=== PATIENT | female | born 1950 | race Caucasian/White ===

== ENCOUNTER → 2018-03-02 08:39 | Outpatient (CLI) | payer MEDICARE, SELFPAY ==
--- NOTE | 2018-03-02 08:46 | CT_ITS ---
CT abdomen pelvis w con CLINICAL INDICATION: Umbilical pain, periumbilical pain and possible hernia ITS.REASON: hernia ORDERING PHYSICIAN: Vel Cooney MD PATIENT AGE: 67 years COMPARISON: None TECHNIQUE: Axial images obtained with sagittal and coronal reformats. All CT scans at the facility use one or more dose reduction, viz: automated exposure control, ma/kV adjustment per patient size (including targeted exams where dose is matched to indication, i.e. head), or iterative reconstruction technique. PROCEDURE: Oral Contrast: Redicat IV Contrast: 75 mL's of Isovue-370. FINDINGS: Lung bases are clear. There are coronary artery calcifications noted. There is a 15 x 8 mm nodular opacity in the medial aspect of the left breast. Nonspecific and mammography with possible ultrasound is suggested for further evaluation. This could be due to asymmetric fibroglandular tissue. The liver, gallbladder, spleen, adrenal glands, and pancreas have an unremarkable appearance. There are bilateral renal cysts measuring up to 2.5 cm lower pole on the left and 7 mm in the mid polar region on the right. No renal or ureteral calculi. No hydronephrosis. Unremarkable appendix. There is extensive diverticulosis of the descending and sigmoid colon. There is minimal blurring of the pericolic fat around the descending colon at the level of the iliac crest suggesting mild low level diverticulitis. No abscess or extra colic gas is evident. Mild mucosal thickening noted at this region as well. No pelvic mass or abnormal fluid collection or focal inflammatory change in the pelvis. No evidence of umbilical hernia or other abdominal wall hernia. No acute bony anomalies. There is some minimal sclerosis of the S1 vertebral body superiorly nonspecific. IMPRESSION: 1. Indeterminate 15 x 8 mm nodular opacity medial aspect of left breast. Mammography and ultrasound may be of further value. The most recent mammogram was 03/06/2015 2. Suspect low level diverticulitis of the descending colon without abscess or perforation 3. No abdominal wall hernia. No umbilical hernia
[2018-03-02 08:57] LABS: Blood Urea Nitrogen 34 mg/dL (7-18); Creatinine,Serum 1.14 mg/dL (0.55-1.02); Estimated Glomerular Filt Rate 48 ml/min (>60); GFR (African American) 58 ML/MIN (>60)
== END ==
PROVIDERS: Family Provider Internal Medicine Adolescent Medicine; PCP Family Medicine; Visit Provider Surgery
DX: K46.9 Unspecified abdominal hernia without obstruction or gangrene (principal)
CPT/HCPCS: 36415; 74177; 82565; 84520; Q9967

== ENCOUNTER → 2018-03-24 09:03 | Outpatient (CLI) | payer MEDICARE, OTHER, SELFPAY ==
--- NOTE | 2018-03-24 09:05 | US_ITS ---
MM Dig mamm BI DX w/CAD, US breast LT complete Ordering Physician: Vel Cooney MD Patient Age: 67 years Female COMPARISON: February 2015 bilateral mammogram INDICATION: . Diagnostic mammogram. Left Breast Density noted on recent CT abdomen study No hormones. No new complaints. Noncontributory family history TECHNIQUE: In addition to routine CC and MLO views of both breasts spot views were performed at the left breast including CC and MLO spot. Also a for 90 degree view left breast as well as nipple profile cc views both breasts performed. DIAGNOSTIC BILATERAL MAMMOGRAM with Spot views... Generalized fatty replacement. New density left breast RIGHT BREAST. Stable appearance no new findings follow up one year on right. LEFT BREAST new nodule/mass at the inferior, medial left breast. Slightly bilobed character. The main round dense focus measures 10 mm posteriorly,... But there is associated tail, with minimal density seen extends anteriorly. Best with this extension the total size of this density spans just over 21 mm AP length,., And including the wispy density also extends for 20 mm height, overall... This New lesion markedly change since 2015 mammogram. Findings highly suspicious for malignancy. Ultrasound was performed as discussed below We have offer the patient ultrasound-guided biopsy later today ====== ULTRASOUND LEFT BREAST including axilla survey Entire breast was surveyed along with the left axilla. Technologist MW There is a hypoechoic solid nodule seen at 9 o'clock position which corresponds with the density seen on mammography. On ultrasound this measures up to 19 mm transverse x 1.4 cm height. Slightly lobulated character with irregular margins anteriorly and medially. highly suspect for carcinoma.. Remainder the left breast unremarkable. Axillary survey performed and reveals only small benign-appearing fatty lymph nodes. No suspicious nodes were encountered. ... IMPRESSION...... 1. LEFT BREAST Mammogram & ultrasound reveal a highly suspicious breast nodule at 9 o'clock position. New mass since since 2014.. Recommend biopsy. Malignancy until proven otherwise . 2. Right breast unremarkable. Annual mammography follow-up right breast recommended BI-RADS Category: 5 Highly Suggestive of Malignancy RECOMMENDED FOLLOW-UP: BIO - BIOPSY RECOMMENDED We have offer the patient ultrasound-guided biopsy later today A letter has been sent to the patient regarding results of the study.)
--- NOTE | 2018-03-24 11:32 | US_ITS ---
, US organ site (breast), left US biopsy guidance HISTORY: New Left breast mass/nodule. On mammogram and ultrasound from earlier today. Nodule 9 o'clock position seen on prior ultrasound and mammogram ========= ULTRASOUND LEFT BREAST Today's ultrasound again demonstrates the nodule at location described in history... (This area measuring up to 1.9 cm in maximum transverse dimension on these images included a small tail x 1.4 cm AP. These images determined the best approach for access to perform aspiration or biopsy of this nodule. Scanning by Dr. Franco & MW. ======== ULTRASND-GUIDED BX LEFT BREAST --( FNA & Dakota-Cut biopsies) Patient given Xanax 1 MG & Lortab 5 by mouth prior to the study for comfort and mild sedation Following sterile preparation as well as local skin, there was deep placement of Xylocaine anesthetic adjacent to the nodule., a small 2-3 mm incision was made in the skin by Dr. Franco. . two FNA needle biopsy was initially performed;... Followed by 3 Dakota-Cut core biopsies: Under ultrasound guidance the the initial FNA biopsy was performed using a 25-gauge needle and subsequent 21-gauge needle.. Two FNA passes performed and tissue submitted for cytology Thereafter 3 true cut core biopsies were performed. Under ultrasound guidance true cut core biopsy needle, was advanced to the nodule and observed passing through the nodule with each of 3 passes.... Initial 16-gauge core biopsy performed; followed by two 14-gauge Dakota-Cut core biopsies. The 3 core biopsies appear to be good quality is were submitted for histology/pathology review. Patient tolerated procedure well. ..............IMPRESSION......... The solid nodule at 9:00 left breast was identified with the initial ultrasound & best approach determine. 2 FNA fine-needle biopsies performed initially Thereafter 3 Dakota-Cut core biopsies performed under ultrasound guidance --- PATHOLOGY REPORTS: ... Initial CYTOPATHOLOGY/ from FNA:.: Positive for Malignancy-ductal carcinoma. ... More complete HISTOLOGY/from core biopsies:. POSITIVE FOR MALIGNANCY. 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 . Estrogen and progesterone receptor positive. . [id number] negative
== END ==
PROVIDERS: Family Provider Internal Medicine Adolescent Medicine; PCP Family Medicine; Visit Provider Surgery
DX: R92.2 Inconclusive mammogram; N64.9 Disorder of breast, unspecified; N63.22 Unspecified lump in the left breast, upper inner quadrant
CPT/HCPCS: 10022; 76641; 76942; 77066; 88173; 88305; 88342; 88360

== ENCOUNTER → 2018-07-05 14:06 | Outpatient (CLI) | payer MEDICARE, OTHER, SELFPAY ==
--- NOTE | 2018-07-05 14:16 | CA_ITS ---
PROCEDURE: 2-D M-mode and color Doppler study INDICATIONS FOR THE TEST: Chest pain COPD Heart Murmur Tobacco Smoking Palpitations Fatigue+ Syncope Edema Hypertension+Diabetes Mellitus+ Rheumatic Fever SOB MURCIA Obesity Hyperlipidemia Family History HD Additional History PRE-CHEMO EF CHECK, BREAST CA PATIENT INFORMATION HEIGHT: 64 WEIGHT:197 GENDER: Female B/P:117/42 2-D/M-MODE INTERPRETATION: 2-D MEASUREMENTS OBSERVED VALUES IN CMS Right Ventricular Dimension (RVDd) 1.4 Interventricular Septum (Thickness)(IVsd) 0.8 Left Ventricular Internal Dimensions(LVIDd) 5.8 Left Ventricular Posterior Wall (Thickness)(LVPWd) 0.9 Aortic Root 2.6 Aortic Cusp Separation 1.9 Left Atrial Dimensions (LAD) 4.3 2D 1. Technically difficult and very poor study, repeat study with definitely contrast is recommended. 2. The left atrium is mildly enlarged, left ventricle is mildly dilated, probably visually estimated ejection fraction 50%, endocardial surfaces are very poorly visualized, a repeat study with definitely contrast is recommended for accurate assessment of wall motion and ejection fraction is recommended. 3. The right atrium and right ventricle are normal size and contractility. 4. The aortic valve is minimally thickened and fibrosed. 5. The mitral and tricuspid valve leaflets are minimally thickened. 6. Pulmonic valve is poorly visualized. 7. Pericardial effusion noted. DOPPLER INTERROGATION: Doppler interrogation of the aortic, mitral and tricuspid valvular presence of mild mitral and tricuspid regurgitation, tricuspid regurgitation jet velocity is inadequate for calculation of the right ventricular systolic pressure, grade 1 diastolic dysfunction seen with tissue Doppler evidence of raised left atrial pressure. CONCLUSION: 1. Technically difficult and very poor study, repeat study with definitely contrast is recommended. 2. Mildly enlarged left atrium, mildly dilated left ventricle, probably visually estimated ejection fraction 50%, a repeat study with Definity contrast is recommended for assessment of the wall motion and for estimation of the ejection fraction. 3. Grade 1 diastolic dysfunction seen with tissue Doppler evidence of raised left atrial pressure. 4. Mild mitral and tricuspid regurgitation 5. No significant pericardial effusion noted.
== END ==
PROVIDERS: PCP Family Medicine; Visit Provider Internal Medicine Medical Oncology
DX: Z01.810 Encounter for preprocedural cardiovascular examination (principal); C50.912 Malignant neoplasm of unspecified site of left female breast; Z45.2 Encounter for adjustment and management of vascular access device
CPT/HCPCS: 93306

== ENCOUNTER 2018-07-14 08:30 | Outpatient (CLI) | payer MEDICARE, OTHER, SELFPAY ==
[2018-07-14 08:31] VITALS: BMI 32.4
[2018-07-14 09:04] LABS: Basophils % 0.6 % (0.1-2.0); Eosinophils # 0.2 K/mm3 (0.0-0.4); Eosinophils % 3.1 % (0.1-12.0); Hematocrit 34.2 % (37.0-47.0); Hemoglobin 10.7 g/dL (12.2-16.2); Lymphocytes # 1.7 K/mm3 (0.7-4.5); Mean Corpuscular HGB Conc 31.2 g/dL (31.8-35.4); Mean Corpuscular Hemoglobin 27.4 pg (27.0-31.2); Mean Corpuscular Volume 87.8 fl (81-99); Mean Platelet Volume 6.9 fl (7.4-10.4); Monocytes # 0.3 K/mm3 (0.1-1.0); Monocytes % 3.6 % (1.7-9.3); Neutrophils # 5.2 K/mm3 (1.8-7.8); Neutrophils % 69.8 % (37.0-80.0); Platelet Count 252 K/mm3 (142-424); Red Cell Distribution Width 14.2 % (11.5-17.5); White Blood Count 7.4 K/mm3 (4.8-10.8)
[2018-07-14 09:24] LABS: Alanine Aminotransferase 35 U/L (12-78); Albumin Level 3.5 gm/dL (3.4-5.0); Albumin/Globulin Ratio 0.9 (1.1-1.8); Alkaline Phosphatase 66 U/L (46-116); Anion Gap 13.7 mEq/L (5-15); Aspartate Amino Transferase 21 U/L (15-37); Bilirubin,Total 0.2 mg/dL (0.2-1.0); Blood Urea Nitrogen 18 mg/dL (7-18); Calcium 9.2 mg/dL (8.5-10.1); Carbon Dioxide 27 mmol/L (21.0-32.0); Chloride 103 mmol/L (98-107); Creatinine Clearance Estimated 74 mL/min (50-200); Creatinine,Serum 0.89 mg/dL (0.55-1.02); Estimated Glomerular Filt Rate 63 ml/min (>60); GFR (African American) 77 ML/MIN (>60); Globulin 3.9 gm/dl (1.3-3.2); Glucose 141 mg/dL (74-106); Potassium 4.7 mmoL/L (3.5-5.1); Sodium 139 mmol/L (136-145); Total Protein,Serum 7.4 gm/dL (6.4-8.2)
[2018-07-14 11:10] VITALS: BP 136/69; PULSE 68; RESP 18; TEMP 36.7
[2018-07-14 11:25] VITALS: BP 122/61; PULSE 60; RESP 18
[2018-07-14 11:40] VITALS: BP 123/61; PULSE 65; RESP 16
[2018-07-14 11:55] VITALS: BP 130/74; PULSE 75; RESP 16
[2018-07-14 12:10] VITALS: BP 131/72; PULSE 72; RESP 16
[2018-07-14 12:15] VITALS: BP 120/63; PULSE 75; RESP 18
--- NOTE | 2018-07-14 17:17 | PC.NURSE ---
1245 - NEULASTA 6MG INSTILLED INTO ONPRO DEVICE AND DEVICE PLACED ON BACK OF RIGHT UPPER ARM. INSTRUCTED PT ON HOW DEVICE WOULD DELIVER NEULASTA AND HOW TO REMOVE FROM ARM AFTER MED DONE INFUSING.
== END 2018-07-14 13:00 | disposition home or self-care (01) ==
LOC: INF 08:35
PROVIDERS: Visit Provider Internal Medicine Medical Oncology
DX: Z51.11 Encounter for antineoplastic chemotherapy (principal); C50.912 Malignant neoplasm of unspecified site of left female breast
CPT/HCPCS: 80053; 85025; 96409; 96413; J2505; J8501; J9000; J9070; Q0166

== ENCOUNTER 2018-08-04 08:00 | Outpatient (CLI) | payer MEDICARE, OTHER, SELFPAY ==
[2018-08-04 08:13] VITALS: BMI 33.3
[2018-08-04 08:33] LABS: Basophils # 0.1 K/mm3 (0-0.2); Basophils % 1.1 % (0.1-2.0); Eosinophils # 0.1 K/mm3 (0.0-0.4); Eosinophils % 0.7 % (0.1-12.0); Hematocrit 31.3 % (37.0-47.0); Hemoglobin 9.9 g/dL (12.2-16.2); Lymphocytes # 1.6 K/mm3 (0.7-4.5); Mean Corpuscular HGB Conc 31.7 g/dL (31.8-35.4); Mean Corpuscular Hemoglobin 27.7 pg (27.0-31.2); Mean Corpuscular Volume 87.2 fl (81-99); Mean Platelet Volume 7.1 fl (7.4-10.4); Monocytes # 0.5 K/mm3 (0.1-1.0); Monocytes % 5.5 % (1.7-9.3); Neutrophils % 73.8 % (37.0-80.0); Platelet Count 330 K/mm3 (142-424); Red Blood Count 3.59 M/mm3 (4.20-5.40); Red Cell Distribution Width 14.8 % (11.5-17.5); White Blood Count 8.2 K/mm3 (4.8-10.8)
[2018-08-04 08:45] LABS: Alanine Aminotransferase 34 U/L (12-78); Albumin Level 3.6 gm/dL (3.4-5.0); Alkaline Phosphatase 67 U/L (46-116); Aspartate Amino Transferase 16 U/L (15-37); Bilirubin,Total 0.2 mg/dL (0.2-1.0); Blood Urea Nitrogen 26 mg/dL (7-18); Calcium 9.2 mg/dL (8.5-10.1); Carbon Dioxide 25 mmol/L (21.0-32.0); Chloride 105 mmol/L (98-107); Creatinine Clearance Estimated 68 mL/min (50-200); Creatinine,Serum 1.08 mg/dL (0.55-1.02); Estimated Glomerular Filt Rate 51 ml/min (>60); GFR (African American) 61 ML/MIN (>60); Globulin 3.5 gm/dl (1.3-3.2); Glucose 194 mg/dL (74-106); Sodium 139 mmol/L (136-145); Total Protein,Serum 7.1 gm/dL (6.4-8.2)
[2018-08-04 10:50] VITALS: BP 106/56; PULSE 62; RESP 18; TEMP 36.1; O2SAT 93
[2018-08-04 11:05] VITALS: BP 118/63; PULSE 61; RESP 18
[2018-08-04 11:20] VITALS: BP 112/62; PULSE 64; RESP 16
[2018-08-04 11:35] VITALS: BP 108/49; PULSE 64; RESP 16
[2018-08-04 11:50] VITALS: BP 107/57; PULSE 67; RESP 16
[2018-08-04 11:55] VITALS: BP 116/54; PULSE 68; RESP 16
--- NOTE | 2018-08-04 17:05 | PC.NURSE ---
1220 - NEULASTA 6MG INSTILLED INTO ONPRO DEVICE. BACK OF RIGHT UPPER ARM CLEANED WITH ALCOHOL PAD AND NEULASTA ONPRO DEVICE PLACED ONTO ARM. INSTRUCTED PT ON HOW DEVICE WORKS AND WHAT TO DO WITH IT ONCE ALL MEDICATION HAS BEEN DISPENSED. UNDERSTANDING VERBALIZED.
== END 2018-08-04 12:25 | disposition home or self-care (01) ==
LOC: INF 08:11
PROVIDERS: Visit Provider Internal Medicine Medical Oncology
DX: Z51.11 Encounter for antineoplastic chemotherapy (principal); C50.912 Malignant neoplasm of unspecified site of left female breast
CPT/HCPCS: 80053; 85025; 96409; 96413; J2505; J8501; J9000; J9070; Q0166

== ENCOUNTER 2018-08-25 09:22 | Outpatient (CLI) | payer MEDICARE, OTHER, SELFPAY ==
[2018-08-25 09:24] VITALS: BMI 33.1
[2018-08-25 09:41] LABS: MANUAL DIFFERENTIAL MANUAL DIFFERENTIAL (MANUAL DIFF)
[2018-08-25 09:46] LABS: Basophils # 0.1 K/mm3 (0-0.2); Basophils % 0.8 % (0.1-2.0); Eosinophils % 0.4 % (0.1-12.0); Hematocrit 28.5 % (37.0-47.0); Hemoglobin 9.2 g/dL (12.2-16.2); Lymphocytes # 1.2 K/mm3 (0.7-4.5); Lymphocytes % 15.7 % (10-50); Mean Corpuscular HGB Conc 32.3 g/dL (31.8-35.4); Mean Corpuscular Hemoglobin 28.8 pg (27.0-31.2); Mean Corpuscular Volume 89.3 fl (81-99); Monocytes # 0.5 K/mm3 (0.1-1.0); Neutrophils # 6.1 K/mm3 (1.8-7.8); Platelet Count 322 K/mm3 (142-424); Red Cell Distribution Width 16.6 % (11.5-17.5); White Blood Count 7.9 K/mm3 (4.8-10.8)
[2018-08-25 09:58] LABS: Alanine Aminotransferase 29 U/L (12-78); Albumin Level 3.6 gm/dL (3.4-5.0); Alkaline Phosphatase 67 U/L (46-116); Anion Gap 17.4 mEq/L (5-15); Aspartate Amino Transferase 17 U/L (15-37); Bilirubin,Total 0.2 mg/dL (0.2-1.0); Blood Urea Nitrogen 24 mg/dL (7-18); Calcium 9.4 mg/dL (8.5-10.1); Carbon Dioxide 23 mmol/L (21.0-32.0); Chloride 104 mmol/L (98-107); Creatinine Clearance Estimated 70 mL/min (50-200); Creatinine,Serum 1.04 mg/dL (0.55-1.02); Estimated Glomerular Filt Rate 53 ml/min (>60); GFR (African American) 64 ML/MIN (>60); Globulin 3.6 gm/dl (1.3-3.2); Glucose 123 mg/dL (74-106); Potassium 5.4 mmoL/L (3.5-5.1); Sodium 139 mmol/L (136-145); Total Protein,Serum 7.2 gm/dL (6.4-8.2)
[2018-08-25 10:28] LABS: Eosinophils % 1 % (0-3); Lymphocytes % 14 % (10-50); Monocytes % 1 % (2-9); Neutrophils % 84 % (42-76); Total Cells Counted 100
[2018-08-25 10:29] LABS: Hypochromasia 1+; Platelet Estimate Normal
[2018-08-25 12:05] VITALS: BP 108/53; PULSE 67; RESP 20; TEMP 36.7; O2SAT 98
[2018-08-25 12:35] VITALS: BP 101/52; PULSE 69; RESP 20; O2SAT 97
[2018-08-25 13:05] VITALS: BP 112/52; PULSE 73; RESP 20; O2SAT 97
[2018-08-25 13:20] VITALS: BP 103/46; PULSE 74; RESP 20; O2SAT 98
== END 2018-08-25 13:40 | disposition home or self-care (01) ==
LOC: INF 09:22
PROVIDERS: Visit Provider Internal Medicine Medical Oncology
DX: C50.812 Malignant neoplasm of overlapping sites of left female breast (principal); Z51.11 Encounter for antineoplastic chemotherapy
CPT/HCPCS: 80053; 85007; 85014; 85018; 85048; 85049; 96372; 96401; 96413; 96417; J1642; J2505; J8501; J9000; J9070; Q0166

== ENCOUNTER 2018-09-15 09:10 | Outpatient (CLI) | payer MEDICARE, OTHER, SELFPAY ==
[2018-09-15 09:20] VITALS: BMI 33.1
[2018-09-15 09:39] LABS: Basophils # 0.1 K/mm3 (0-0.2); Basophils % 0.5 % (0.1-2.0); Eosinophils # 0.1 K/mm3 (0.0-0.4); Eosinophils % 0.6 % (0.1-12.0); Hematocrit 27.5 % (37.0-47.0); Hemoglobin 8.8 g/dL (12.2-16.2); Lymphocytes # 0.9 K/mm3 (0.7-4.5); Lymphocytes % 10.2 % (10-50); Mean Corpuscular Hemoglobin 28.9 pg (27.0-31.2); Mean Corpuscular Volume 90.3 fl (81-99); Mean Platelet Volume 7.7 fl (7.4-10.4); Monocytes # 0.3 K/mm3 (0.1-1.0); Monocytes % 3.3 % (1.7-9.3); Neutrophils # 7.8 K/mm3 (1.8-7.8); Neutrophils % 85.3 % (37.0-80.0); Platelet Count 291 K/mm3 (142-424); Red Blood Count 3.05 M/mm3 (4.20-5.40); Red Cell Distribution Width 17.1 % (11.5-17.5); White Blood Count 9.1 K/mm3 (4.8-10.8)
[2018-09-15 09:42] LABS: MANUAL DIFFERENTIAL MANUAL DIFFERENTIAL (MANUAL DIFF)
[2018-09-15 09:54] LABS: Alanine Aminotransferase 26 U/L (12-78); Albumin Level 3.7 gm/dL (3.4-5.0); Albumin/Globulin Ratio 1.1 (1.1-1.8); Alkaline Phosphatase 61 U/L (46-116); Anion Gap 16.3 mEq/L (5-15); Aspartate Amino Transferase 18 U/L (15-37); Bilirubin,Total 0.3 mg/dL (0.2-1.0); Blood Urea Nitrogen 23 mg/dL (7-18); Calcium 8.9 mg/dL (8.5-10.1); Carbon Dioxide 23 mmol/L (21.0-32.0); Chloride 106 mmol/L (98-107); Creatinine Clearance Estimated 63 mL/min (50-200); Creatinine,Serum 1.19 mg/dL (0.55-1.02); Estimated Glomerular Filt Rate 45 ml/min (>60); GFR (African American) 55 ML/MIN (>60); Globulin 3.5 gm/dl (1.3-3.2); Glucose 102 mg/dL (74-106); Potassium 5.3 mmoL/L (3.5-5.1); Sodium 140 mmol/L (136-145); Total Protein,Serum 7.2 gm/dL (6.4-8.2)
[2018-09-15 10:00] LABS: Lymphocytes % 7 % (10-50); Monocytes % 1 % (2-9); Neutrophils % 91 % (42-76); Platelet Estimate Normal; RBC Morphology Normal; Total Cells Counted 100
[2018-09-15 12:23] VITALS: BP 110/53; PULSE 75; RESP 18; TEMP 36.6
[2018-09-15 12:38] VITALS: BP 106/56; PULSE 78; RESP 18
[2018-09-15 12:53] VITALS: BP 105/56; PULSE 81; RESP 18
[2018-09-15 13:08] VITALS: BP 101/56; PULSE 76; RESP 18
[2018-09-15 13:23] VITALS: BP 99/51; PULSE 75; RESP 18
--- NOTE | 2018-09-15 14:57 | PC.NURSE ---
1330 - NEULASTA 6MG INSTILLED INTO ONPRO DEVICE AND DEVICE PLACED ONTO BACK OF RIGHT UPPER ARM PER PACKAGING INSTUCTIONS. INSTRUCTIONS GIVEN TO PT/SPOUSE ON HOW TO REMOVE DEVICE AND DISPOSE OF AFTER MED DELIVERED. UNDERSTANDING VERBALIZED.
== END 2018-09-15 13:50 | disposition home or self-care (01) ==
LOC: INF 09:18
PROVIDERS: Visit Provider Internal Medicine Medical Oncology
DX: Z51.11 Encounter for antineoplastic chemotherapy (principal); C50.912 Malignant neoplasm of unspecified site of left female breast
CPT/HCPCS: 80053; 85007; 85025; 96372; 96409; 96411; 96413; J2505; J8501; J9000; J9070; Q0166

== ENCOUNTER 2018-09-25 11:36 | Inpatient (IN) ==
--- NOTE | 2018-09-25 11:45 | Emergency Department Note ---
ED Disposition Clinical Impression: Diverticulitis Disposition: Admitted as Observation Condition on Discharge: Good Instructions: DI for Acute Abdomen Referrals: Provider,Referral, [Primary Care Provider] - Time of Disposition: 15:04 - Critical Care Critical Care Time: No Attestation: On , the high probability of a clinically significant, sudden or life threatening deterioration of the following system(s) required my full and direct attention, intervention and personal management. The time I documented below is in addition to time spent performing reported procedures but includes the following listed in this critical care notation. Medical Decision Making - Medical Records Medical records reviewed: Yes: I reviewed the patient's medical records. - Jaiden Inquiry Pt receiving controlled substance: No Jaiden was queried for this patient: No Vital Signs: 09/25/18 11:38 09/25/18 12:02 09/25/18 13:17 Temperature 98.1 F Temperature Source Oral Pulse Rate [Left Radial] 108 H 104 H 82 Respiratory Rate 22 22 18 Blood Pressure [Right Arm] 150/89 H 130/88 115/60 Blood Pressure Mean [Right Arm] 109 102 78 Blood Pressure Source [Right Arm] Automatic Cuff Automatic Cuff Automatic Cuff Blood Pressure Position [Right Arm] Sitting Sitting Sitting 02 Sat by Pulse Oximetry 98 100 97 Oxygen Delivery Method Room Air Room Air Room Air Oxygen Flow Rate (LPM) 09/25/18 13:30 09/25/18 13:42 09/25/18 13:53 Temperature Temperature Source Pulse Rate [Left Radial] 86 Respiratory Rate Blood Pressure [Right Arm] 105/57 L Blood Pressure Mean [Right Arm] 73 Blood Pressure Source [Right Arm] Automatic Cuff Blood Pressure Position [Right Arm] Sitting 02 Sat by Pulse Oximetry 96 85 L 97 Oxygen Delivery Method Room Air Room Air Nasal Cannula Oxygen Flow Rate (LPM) 9 - Lab Data Lab results reviewed: Yes: I reviewed the patient's lab results. Lab Results 09/25/18 11:50: WBC 4.5 L, RBC 3.13 L, Hgb 9.2 L, Hct 28.0 L, MCV 89.6, MCH 29.2, MCHC 32.7, RDW 17.2, Plt Count 206, MPV 7.9, Neut % (Auto) 73.6, Lymph % (Auto) 17.9, Cameron % (Auto) 5.5, Eos % (Auto) 1.7, Baso % (Auto) 1.3, Neut # (Auto) 3.3, Lymph # (Auto) 0.8, Cameron # (Auto) 0.3, Eos # (Auto) 0.1, Baso # (Auto) 0.1 09/25/18 11:50: Sodium 142, Potassium 4.2, Chloride 105, Carbon Dioxide 22, Anion Gap 19.2 H, BUN 19 H, Creatinine 0.98, Estimated Creat Clear 72, Estimated GFR 57 L, Est GFR ( Amer) 68, Glucose 140 H, Calcium 9.7 09/25/18 14:30: Urine Color Yellow, Urine Appearance Clear, Urine pH 5.5, Ur Specific [place] 1.015, Urine Protein Negative, Urine Glucose (UA) Negative, Urine Ketones Trace, Urine Blood Trace-i, Urine Nitrate Negative, Urine Bilirubin Negative, Urine Urobilinogen 0.2, Ur Leukocyte Esterase Negative, Urine RBC Occasional, Urine WBC 10-20, Ur Squamous Epith Cells 3-5, Urine Bacteria 1+ Result diagrams: 09/25/18 11:50 09/25/18 11:50 Orders (Tests/Meds): ED MEDICATIONS Generic Name Dose Route Start Last Admin Trade Name Freq PRN Reason Stop Dose Admin Levofloxacin/Dextrose 750 mg in 150 mls @ 100 mls/hr 09/25/18 14:30 Levofloxacin 750mg/150ml Premix IV 10/09/18 14:29 Q24H RORO Protocol Metronidazole 500 mg in 100 mls @ 100 mls/hr 09/25/18 14:18 09/25/18 14:32 Flagyl 500mg/100ml Ivpb IV 09/25/18 15:17 100 mls/hr ONCE ONE Administration Protocol Discontinued Medications Generic Name Dose Route Start Last Admin Trade Name Freq PRN Reason Stop Dose Admin Hydromorphone HCl 0.5 mg 09/25/18 11:58 09/25/18 12:01 Dilaudid 2mg/Ml Syringe IV 09/25/18 11:59 0.5 mg ONCE ONE Administration Hydromorphone HCl 0.5 mg 09/25/18 12:12 09/25/18 12:13 Dilaudid 2mg/Ml Syringe IV 09/25/18 12:13 0.5 mg ONCE ONE Administration Hydromorphone HCl 0.5 mg 09/25/18 13:30 09/25/18 13:35 Dilaudid 2mg/Ml Syringe IV 09/25/18 13:31 0.5 mg ONCE ONE Administration Ioversol 75 ml 09/25/18 13:06 09/25/18 13:07 Rad-Optiray 350 100ml Vial IV 09/25/18 13:07 75 ml ONCE ONE Administration Protocol Ketorolac Tromethamine 30 mg 09/25/18 11:57 09/25/18 11:59 Toradol 30mg/Ml Vial IV 09/25/18 11:58 30 mg ONCE ONE Administration Lorazepam 1 mg 09/25/18 11:44 09/25/18 11:59 Ativan 1mg Tablet PO 09/25/18 11:45 1 mg ONCE ONE Administration Ondansetron HCl 4 mg 09/25/18 11:41 09/25/18 11:59 Zofran 4mg/2ml Vial IV 09/25/18 11:42 4 mg ONCE ONE Administration Sodium Chloride 10 ml 09/25/18 13:06 09/25/18 13:07 Rad-Saline Flush 10ml Syringe IV 09/25/18 13:07 10 ml ONCE ONE Administration ORDERS Category Date Time Status Urine Culture Stat Micro 09/25/18 14:30 Received General Adult HPI - General Chief complaint: Abdominal Pain Stated complaint: abd pain Time Seen by Provider: 09/25/18 11:42 Mode of Arrival: Ambulatory Source of Information: Patient Limitations: No Limitations - History of Present Illness HPI narrative: cancer patient, breast, last chemo was september 15 presenting with severe suprapubic pain, doubles her over - Related Data Home Medications Medication Instructions Recorded Confirmed allopurinol 100 mg tablet 100 mg PO DAILY 02/16/18 09/25/18 ascorbic acid (vitamin C) 1,000 mg 1 g PO DAILY 02/16/18 09/25/18 tablet citalopram 40 mg tablet 20 mg PO DAILY 02/16/18 09/25/18 cyanocobalamin (vit B-12) 1,000 1,000 mcg PO DAILY 02/16/18 09/25/18 mcg tablet diclofenac sodium 75 mg 75 mg PO BID 02/16/18 09/25/18 tablet,delayed release levothyroxine 150 mcg capsule 150 mcg PO DAILY 02/16/18 09/25/18 lisinopril 20 mg tablet 20 mg PO DAILY 02/16/18 09/25/18 metformin 1,000 mg tablet 1,000 mg PO BID 02/16/18 09/25/[address] 40 mg granules 40 mg PO DAILY 02/16/18 09/25/18 delayed-release for susp in packet pravastatin 10 mg tablet 10 mg PO DAILY 02/16/18 09/25/18 pregabalin 150 mg capsule 150 mg PO BID 02/16/18 09/25/18 trazodone 150 mg tablet 150 mg PO HS 02/16/18 09/25/18 zolpidem 10 mg tablet 10 mg PO HS tab 02/16/18 09/25/18 Allergies Allergy/AdvReac Type Severity Reaction Status Date / Time Penicillins Allergy Hives Verified 09/15/18 10:16 [facility] History - Hepatitis A Screen Attestation statement:: This patient has been screened for Hepatitis A risk factors. I have reviewed the patient's past medical history: Yes Medical History: Reports:: Cancer, Diabetes Mellitus Type 2, Gastroesophageal Reflux Disease(GERD), Hyperlipidemia, Hypertension Denies:: Diabetes Mellitus Type 1, Internal Pacemaker, Lung Disease, MRSA, Seizures Other Medical History: Reports: Hypothyroidism, Other. Denies: Blood Transfusion Reaction Comment: Hep A vaccine Laterality Cases: Left: Breast Biopsy, Mastectomy Other Surgeries: Yes: Colonoscopy, , Other. No: Pacemaker Amputation: No Fractures: No - Social History Smoking Status: Never smoker Alcohol Intake: never Substance Use Type: denies use Occupational Status: employed Housing: house Household Members: spouse Family Hx:: Cancer, Coronary Artery Disease, Diabetes, Heart Attack ROS Obtained: Yes All systems reviewed & no additional complaints - Constitutional Constitutional: Denies chills, Denies fever(s) - Eyes Eyes: Denies blurry vision - ENT Ears, Nose, Mouth, and Throat: Denies sore throat, Denies throat swelling - Cardiovascular Cardiovascular: Denies chest pain at rest, Denies rapid heart rate, Denies slow heart rate - Respiratory Respiratory: No chest congestion, No cough, No dyspnea - Gastrointestinal Gastrointestingal: Reports: system reviewed and no additional complaints, except as docu, abdominal pain. Denies: diarrhea, nausea, vomiting - Genitourinary Female Genitourinary: Denies dysuria, Denies flank pain, Reports pelvic pain - Integumentary/Breasts Skin/Breast: Denies rash - Neurologic Neurologic: Denies syncope, Denies vertigo, Denies weakness - Hematologic/Lymphatic Henatologic/Lymphatic: Denies easy bleeding, Denies easy bruising Physical Exam - General General appearance: alert, anxious, in distress - Head Head exam: atraumatic, normocephalic, normal inspection - Eye Eye exam: Present: normal appearance, PERRL, EOMI - ENT ENT exam: Present: normal exam, normal oropharynx, mucous membranes moist, TM's normal bilaterally, normal external ear exam - Neck Neck exam: Present: normal inspection, full ROM, trachea midline. Absent: meningismus, lymphadenopathy - Chest Chest inspection: Present: normal inspection, symmetric chest wall rise. Absent: tenderness - Respiratory Respiratory exam: Present: normal lung sounds bilaterally. Absent: respiratory distress - Cardiovascular Cardiovascular exam: Present: regular rate, normal rhythm. Absent: JVD - Abdominal Exam Abdominal exam: Present: soft, tenderness, normal bowel sounds. Absent: distention, guarding Abdominal tenderness: Present: suprapubic - Extremities Exam Extremities exam: Present: normal inspection, full ROM, normal capillary refill. Absent: calf tenderness - Back Exam Back exam: Present: normal inspection. Absent: tenderness - Neurological Exam Neurological exam: Present: alert, oriented X3 - Psychiatric Psychiatric exam: Present: normal affect, normal mood - Skin Skin exam: Present: warm, dry, intact, normal color - Lymphatic Lymphatic Findings: no adenopathy
[2018-09-25 11:58] LABS: Basophils # 0.1 K/mm3 (0-0.2); Basophils % 1.3 % (0.1-2.0); Eosinophils # 0.1 K/mm3 (0.0-0.4); Eosinophils % 1.7 % (0.1-12.0); Hemoglobin 9.2 g/dL (12.2-16.2); Lymphocytes # 0.8 K/mm3 (0.7-4.5); Lymphocytes % 17.9 % (10-50); Mean Corpuscular HGB Conc 32.7 g/dL (31.8-35.4); Mean Corpuscular Hemoglobin 29.2 pg (27.0-31.2); Mean Corpuscular Volume 89.6 fl (81-99); Mean Platelet Volume 7.9 fl (7.4-10.4); Monocytes # 0.3 K/mm3 (0.1-1.0); Monocytes % 5.5 % (1.7-9.3); Neutrophils # 3.3 K/mm3 (1.8-7.8); Neutrophils % 73.6 % (37.0-80.0); Platelet Count 206 K/mm3 (142-424); Red Blood Count 3.13 M/mm3 (4.20-5.40); Red Cell Distribution Width 17.2 % (11.5-17.5); White Blood Count 4.5 K/mm3 (4.8-10.8)
[2018-09-25 12:04] LABS: Anion Gap 19.2 mEq/L (5-15); Calcium 9.7 mg/dL (8.5-10.1); Potassium 4.2 mmoL/L (3.5-5.1)
[2018-09-25 14:35] LABS: Microscopic, Urine URINE MICROSCOPIC (MICROSCOPIC)
[2018-09-25 14:36] LABS: Appearance,Urine CLEAR (Clear); Bilirubin,Urine Negative (Negative); Blood, Urine TRACE-I (Negative); Color,Urine YELLOW (Yellow); Glucose,Urine (UA) Negative (Negative); Ketones,Urine TRACE (Negative); Leukocyte Esterase,Urine Negative (Negative); PH,Urine 5.5 (5.0-8.5); Protein,Urine Negative (Negative); Specific Gravity, Urine 1.015 (1.005-1.030); Urobilinogen,Urine 0.2 EU/dl (0.2)
[2018-09-25 14:46] LABS: Bacteria,Urine 1+ /lpf; RBC,Urine Occasional #/hpf (0-3)
[2018-09-26 06:54] LABS: Basophils % 0.2 % (0.1-2.0); Hematocrit 24.4 % (37.0-47.0); Lymphocytes # 0.4 K/mm3 (0.7-4.5); Lymphocytes % 6.8 % (10-50); Mean Corpuscular HGB Conc 32.4 g/dL (31.8-35.4); Mean Corpuscular Hemoglobin 29.4 pg (27.0-31.2); Mean Corpuscular Volume 90.6 fl (81-99); Mean Platelet Volume 7.4 fl (7.4-10.4); Monocytes # 0.1 K/mm3 (0.1-1.0); Monocytes % 2.4 % (1.7-9.3); Neutrophils # 5.6 K/mm3 (1.8-7.8); Neutrophils % 90.6 % (37.0-80.0); Platelet Count 173 K/mm3 (142-424); Red Blood Count 2.69 M/mm3 (4.20-5.40); Red Cell Distribution Width 17.1 % (11.5-17.5); White Blood Count 6.1 K/mm3 (4.8-10.8)
[2018-09-26 07:07] LABS: Anion Gap 12.3 mEq/L (5-15); Hemoglobin 7.9 g/dL (12.2-16.2); Potassium 4.3 mmoL/L (3.5-5.1)
--- NOTE | 2018-09-26 07:33 | Pharmacy Consult Notes ---
[facility] VTE Monitoring - Patient Demographics Admission date: 09/25/18 Report Date: 09/26/18 Time: 07:33 Allergies/Adverse Reactions: Patient Allergies Penicillins Allergy (Verified 09/15/18 10:16) Hives Height: 1.8 m Weight: 84.368 kg Patient Problems: Current Active Problems Diverticulitis (Acute) - VTE Risk Labs: VTE Related Lab Results Hgb 7.9 g/dL (12.2-16.2) L* 09/26/18 06:17 Hct 24.4 % (37.0-47.0) L 09/26/18 06:17 Plt Count 173 K/mm3 (142-424) 09/26/18 06:17 BUN 11 mg/dL (7-18) D 09/26/18 06:17 Creatinine 0.72 mg/dL (0.55-1.02) D 09/26/18 06:17 Estimated Creat Clear 73 mL/min (50-200) 09/26/18 06:17 Was VTE Risk Assessment Performed: Yes VTE Score: 4 VTE Risk Level: Low Risk - Prophylaxis VTE Prophylaxis Ordered?: Yes Types of VTE Prophylaxis: TEDS Knee High Location of Applied Device: Bilateral Lower Extremeties - VTE Diagnosis Confirmed Treatment or plan recommended: Continue Current Treatment
[2018-09-26 08:33] LABS: Lymphocytes % 5 % (10-50); Monocytes % 2 % (2-9); Neutrophils % 93 % (42-76); RBC Morphology Normal; Total Cells Counted 100
--- NOTE | 2018-09-26 08:57 | History & Physical Report ---
*Admission Date: 09/25/18 *Chief complaint: Left lower quadrant pain *History of present illness: 68-year-old white female with history of breast cancer, currently on active chemotherapy, last cycle first week of September, and overall doing well, until yesterday when she began to have significant suprapubic/left lower quadrant pain that was sharp, unremitting and very intense. Came to emergency department where workup showed negative urinalysis, but CT of abdomen and pelvis showed evidence of sigmoid colitis/mild diverticulitis. Admitted for pain control and IV antibiotics. [facility] History I have reviewed the patient's past medical history: Yes Medical History: Reports:: Cancer, Diabetes Mellitus Type 2, Gastroesophageal Reflux Disease(GERD), Hyperlipidemia, Hypertension Denies:: Diabetes Mellitus Type 1, Internal Pacemaker, Lung Disease, MRSA, Seizures *Have you ever received a pneumonia vaccine?: Yes *Have you received a flu vaccine this season?: Yes Other Medical History: Reports: Hypothyroidism, Other. Denies: Blood Transfusion Reaction Laterality Cases: Left: Breast Biopsy, Mastectomy Other Surgeries: Yes: Colonoscopy, , Other. No: Pacemaker Amputation: No Fractures: No - *Social History Smoking Status: Never smoker Alcohol Intake: never Substance Use Type: denies use *Occupational Status:: employed Housing: house Household Members: spouse *Travel in the last 8 weeks: None - Psychiatric History Expresses thoughts of harming self/others: None Suicide Plan Description: No Plan Family Hx:: Cancer, Coronary Artery Disease, Diabetes, Heart Attack Review of Systems - Review of Systems Review of systems:: pertinent systems reviewed and negative unless documented below - Constitutional Reports anorexia, Reports body ache(s), Denies chills - Eyes Denies blind spots, Denies blurry vision - ENT Denies abnormal hearing, Denies bleeding gums - *Cardiovascular Denies chest pain, Denies chest pain at rest, Denies excessive sweating, Denies shortness of breath, Denies irregular heart rhythm - *Respiratory Denies change in phlegm color, Denies chest congestion, Denies cough, Denies shortness of breath - *Gastrointestinal Reports abdominal pain, Denies belching - *Genitourinary Denies painful urination - *Musculoskeletal Denies abnormal walking, Denies joint pain - *Neurologic Denies fainting, Denies dizziness, Denies weakness - Endocrine Denies cold intolerance, Denies excessive sweating Meds Home Medications Medication Instructions Recorded Confirmed Type allopurinol 100 mg tablet 100 mg PO DAILY 02/16/18 09/25/18 History ascorbic acid (vitamin C) 1,000 mg 1 g PO DAILY 02/16/18 09/25/18 History tablet citalopram 40 mg tablet 40 mg PO DAILY 02/16/18 09/26/18 History cyanocobalamin (vit B-12) 1,000 1,000 mcg PO DAILY 02/16/18 09/25/18 History mcg tablet diclofenac sodium 75 mg 75 mg PO BID 02/16/18 09/25/18 History tablet,delayed release lisinopril 20 mg tablet 20 mg PO DAILY 02/16/18 09/25/18 History metformin 1,000 mg tablet 1,000 mg PO BID 02/16/18 09/25/18 History pravastatin 10 mg tablet 10 mg PO DAILY 02/16/18 09/25/18 History trazodone 150 mg tablet 150 mg PO HS 02/16/18 09/25/18 History zolpidem 10 mg tablet 10 mg PO HS tab 02/16/18 09/25/18 History Gabapentin 1,600 mg PO BID 09/25/18 09/26/18 History Ondansetron HCl [Ondansetron 8mg 8 mg PO Q8HP PRN 09/25/18 09/26/18 History Tablet] Triamterene/Hydrochlorothiazid 1 each PO DAILY 09/25/18 09/25/18 History [Maxzide 37.5 mg-25 mg Tablet] Levothyroxine Sodium 50 mcg PO DAILY 09/26/18 09/26/18 History [Levothyroxine 50mcg (0.05mg) Tab] Pantoprazole Sodium [Protonix 40mg 40 mg PO DAILY 09/26/18 09/26/18 History tablet] Allergies Allergy/AdvReac Type Severity Reaction Status Date / Time Penicillins Allergy Hives Verified 09/15/18 10:16 Exam Vital signs and Labs for Last 24 Hours: Temp Pulse Resp BP Pulse Ox 97.6 F 78 18 101/58 L 92 L 09/26/18 07:52 09/26/18 07:52 09/26/18 07:52 09/26/18 07:52 09/26/18 07:52 Laboratory Results - last 24 hr 09/25/18 11:50: WBC 4.5 L, RBC 3.13 L, Hgb 9.2 L, Hct 28.0 L, MCV 89.6, MCH 29.2, MCHC 32.7, RDW 17.2, Plt Count 206, MPV 7.9, Neut % (Auto) 73.6, Lymph % (Auto) 17.9, [place] % (Auto) 5.5, Eos % (Auto) 1.7, Baso % (Auto) 1.3, Neut # (Auto) 3.3, Lymph # (Auto) 0.8, [place] # (Auto) 0.3, Eos # (Auto) 0.1, Baso # (Auto) 0.1 09/25/18 11:50: Sodium 142, Potassium 4.2, Chloride 105, Carbon Dioxide 22, Anion Gap 19.2 H, BUN 19 H, Creatinine 0.98, Estimated Creat Clear 72, Estimated GFR 57 L, Est GFR ( Amer) 68, Glucose 140 H, Calcium 9.7 09/25/18 14:30: Urine Color Yellow, Urine Appearance Clear, Urine pH 5.5, Ur Specific [place] 1.015, Urine Protein Negative, Urine Glucose (UA) Negative, Urine Ketones Trace, Urine Blood Trace-i, Urine Nitrate Negative, Urine Bilirubin Negative, Urine Urobilinogen 0.2, Ur Leukocyte Esterase Negative, Urine RBC Occasional, Urine WBC 10-20, Ur Squamous Epith Cells 3-5, Urine Bacteria 1+ 09/26/18 06:17: WBC 6.1 D, RBC 2.69 L, Hgb 7.9 L*, Hct 24.4 L, MCV 90.6, MCH 29.4, MCHC 32.4, RDW 17.1, Plt Count 173, MPV 7.4, Neut % (Auto) 90.6 H, Lymph % (Auto) 6.8 L, [place] % (Auto) 2.4, Eos % (Auto) 0.0 L, Baso % (Auto) 0.2, Neut # (Auto) 5.6, Lymph # (Auto) 0.4 L, [place] # (Auto) 0.1, Eos # (Auto) 0.0, Baso # (Auto) 0.0, Total Counted 100, Neutrophils % (Manual) 93 H, Lymphocytes % (Manual) 5 L, Monocytes % (Manual) 2, Platelet Estimate Normal, RBC Morphology Normal 09/26/18 06:17: Sodium 140, Potassium 4.3, Chloride 107, Carbon Dioxide 25, Anion Gap 12.3, BUN 11 D, Creatinine 0.72 D, Estimated Creat Clear 73, Estimated GFR 81, Est GFR ( Amer) 98 D, Glucose 152 H 09/26/18 06:18: POC Glucose 155 H I & O for Last 24 hours: Intake & Output 09/23/18 09/24/18 09/25/18 09/26/18 11:59 11:59 11:59 11:59 Intake Total 2183 / 2183 Output Total 100 / 100 Balance 2082 / 2082 Weight 184 lb 186 lb Narrative: Patient is pleasant, talkative, alert. Oriented x3. Chemo-related alopecia noted. Anterior lung mckeon are clear, heart rate regular. Abdomen is soft, very minimal left lower quadrant tenderness but apparently improved over admission. No extremity clubbing or cyanosis, no skin rash. Assessment and Plan (1) Colitis Current visit: Yes Status: Acute Category: Medical Code(s): K52.9 - Noninfective gastroenteritis and colitis, unspecified CT scan reviewed, patient has responded antibiotics, cautiously advance diet. (2) Anemia Current visit: Yes Status: Chronic Qualifiers: Anemia type: other cause Category: Medical Code(s): D64.9 - Anemia, unspecified Secondary to chemotherapy. At baseline. Follow closely. 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
[2018-09-26 09:24] LABS: Calcium 8.3 mg/dL (8.5-10.1)
--- NOTE | 2018-09-26 17:58 | Discharge Summary ---
General - General Admission date:: 09/25/18 Discharge date: 09/26/18 HPI HPI: 68-year-old white female with history of breast cancer, currently on active chemotherapy, last cycle first week of September, and overall doing well, until yesterday when she began to have significant suprapubic/left lower quadrant pain that was sharp, unremitting and very intense. Came to emergency department where workup showed negative urinalysis, but CT of abdomen and pelvis showed evidence of sigmoid colitis/mild diverticulitis. Admitted for pain control and IV antibiotics. Hospital Course Hospital Course: Patient was admitted to hospital. Placed on IV antibiotics and steroids, and did well overnight, rehydrated successfully and her pain improved nicely. Through the day today she was started on low-fat/low residue diet and did well. Tonight she had improved, wished to be discharged home. We will discharge her home on Flagyl, prednisone as noted below. I have asked her to discuss with her oncologist the possibility of chemotherapy-induced colitis. Objective Vital signs: Temp Pulse Resp BP Pulse Ox 98.5 F 74 18 107/55 L 96 09/26/18 15:48 09/26/18 15:48 09/26/18 15:48 09/26/18 15:48 09/26/18 15:48 Narrative: Soft abdomen, minimally tender. Much improved over admission exam, lungs are clear, heart rate regular. No edema noted. Heart rate regular. Neurologic exam intact. Results Labs on day of discharge: Labs from last 24 hours 09/26/18 09/26/18 09/26/18 06:18 06:17 06:17 WBC 6.1 D RBC 2.69 L Hgb 7.9 L* Hct 24.4 L MCV 90.6 MCH 29.4 MCHC 32.4 RDW 17.1 Plt Count 173 MPV 7.4 Neut % (Auto) 90.6 H Lymph % (Auto) 6.8 L [place] % (Auto) 2.4 Eos % (Auto) 0.0 L Baso % (Auto) 0.2 Neut # (Auto) 5.6 Lymph # (Auto) 0.4 L [place] # (Auto) 0.1 Eos # (Auto) 0.0 Baso # (Auto) 0.0 Total Counted 100 Neutrophils % (Manual) 93 H Lymphocytes % (Manual) 5 L Monocytes % (Manual) 2 Platelet Estimate Normal RBC Morphology Normal Sodium 140 Potassium 4.3 Chloride 107 Carbon Dioxide 25 Anion Gap 12.3 BUN 11 D Creatinine 0.72 D Estimated Creat Clear 73 Estimated GFR 81 Est GFR ( Amer) 98 D Glucose 152 H POC Glucose 155 H Calcium 8.3 L D Preliminary micro results at discharge 09/25/18 14:30 Urine Culture - Preliminary Urine,Clean Catch NO GROWTH AFTER 24 HOURS DS: Diagnosis - Discharge Diagnosis (1) Colitis Status: Acute (2) Anemia Status: Chronic (3) Insulin-requiring or dependent type II diabetes mellitus Status: Chronic Discharge Plan - Patient Discharge Instructions ACTIVITY: Continue current activity DIET: continue same diet Patient Instructions: DI for Diverticulitis, DI for Abdominal Pain-Adult - Follow up Plan Disposition: Home, Self-Custodial Medications: Home Medications Medication Instructions Recorded Confirmed Type allopurinol 100 mg tablet 100 mg PO DAILY 02/16/18 09/25/18 History ascorbic acid (vitamin C) 1,000 mg 1 g PO DAILY 02/16/18 09/25/18 History tablet citalopram 40 mg tablet 40 mg PO DAILY 02/16/18 09/26/18 History cyanocobalamin (vit B-12) 1,000 1,000 mcg PO DAILY 02/16/18 09/25/18 History mcg tablet diclofenac sodium 75 mg 75 mg PO BID 02/16/18 09/25/18 History tablet,delayed release lisinopril 20 mg tablet 20 mg PO DAILY 02/16/18 09/25/18 History metformin 1,000 mg tablet 1,000 mg PO BID 02/16/18 09/25/18 History pravastatin 10 mg tablet 10 mg PO DAILY 02/16/18 09/25/18 History trazodone 150 mg tablet 150 mg PO HS 02/16/18 09/25/18 History zolpidem 10 mg tablet 10 mg PO HS tab 02/16/18 09/25/18 History Gabapentin 1,600 mg PO BID 09/25/18 09/26/18 History Ondansetron HCl [Ondansetron 8mg 8 mg PO Q8HP PRN 09/25/18 09/26/18 History Tablet] Triamterene/Hydrochlorothiazid 1 each PO DAILY 09/25/18 09/25/18 History [Maxzide 37.5 mg-25 mg Tablet] Levothyroxine Sodium 50 mcg PO DAILY 09/26/18 09/26/18 History [Levothyroxine 50mcg (0.05mg) Tab] Pantoprazole Sodium [Protonix 40mg 40 mg PO DAILY 09/26/18 09/26/18 History tablet] metroNIDAZOLE [Flagyl 250mg 250 mg PO TID #21 tab 09/26/18 Rx Tablet] predniSONE [Prednisone 20mg 20 mg PO DAILY 7 Days #7 tab 09/26/18 Rx Tab] Prescriptions/Medication Reconciliation: New metroNIDAZOLE [Flagyl 250mg Tablet] 250 mg PO TID #21 tab predniSONE [Prednisone 20mg Tab] 20 mg PO DAILY 7 Days #7 tab Continue lisinopril 20 mg tablet 20 mg PO DAILY zolpidem 10 mg tablet 10 mg PO HS tab metformin 1,000 mg tablet 1,000 mg PO BID pravastatin 10 mg tablet 10 mg PO DAILY trazodone 150 mg tablet 150 mg PO HS diclofenac sodium 75 mg tablet,delayed release 75 mg PO BID allopurinol 100 mg tablet 100 mg PO DAILY cyanocobalamin (vit B-12) 1,000 mcg tablet 1,000 mcg PO DAILY ascorbic acid (vitamin C) 1,000 mg tablet 1 g PO DAILY citalopram 40 mg tablet 40 mg PO DAILY Ondansetron HCl [Ondansetron 8mg Tablet] 8 mg PO Q8HP PRN PRN Reason: Nausea Gabapentin 1,600 mg PO BID Pantoprazole Sodium [Protonix 40mg tablet] 40 mg PO DAILY Triamterene/Hydrochlorothiazid [Maxzide 37.5 mg-25 mg Tablet] 1 each PO DAILY Levothyroxine Sodium [Levothyroxine 50mcg (0.05mg) Tab] 50 mcg PO DAILY
== END 2018-09-26 18:45 | disposition home or self-care (01) | DRG 392 ==
LOC: ER 11:36 → 2ND 15:47
PROVIDERS: ADMIT Internal Medicine Adolescent Medicine; ATTEND Internal Medicine Adolescent Medicine
CPT/HCPCS: 36415; 74177; 80048; 81001; 82962; 85007; 85025; 87086; 96365; 96366; 96375; 96376; 99285; J1956; J2405; Q9967

== ENCOUNTER 2018-09-29 09:00 | Outpatient (RCR) | payer MEDICARE, OTHER, SELFPAY ==
--- NOTE | 2018-09-12 09:43 | [facility].PTOPWND ---
Rehab Outpt Wound Evaluation Rehab OP Wound Evaluation Start: 09/12/18 09:33 Freq: Status: Active Protocol: Document 09/12/18 09:33 GEORGE (Rec: 09/12/18 09:43 PHORNE [id number]) Electronically Signed By Scooby Reese, PT 09/12/18 09:33 Subjective/History History History Pt is a 68 yowf who presents ~ 5 mos S/P left mastectomy woth 6 axillary lymph nodes removed and now with edema and discomfort. She reports having her 4th, and last, chemo treatment this week. She also c/o pain around the left breast itself, especially with taking a shower. SHe reports numbness and tingling around the left breast and axillary region. She has expected post-op weakness and loss of ROM throughout the left shld. She has hx of HTN and DM-II with neuropathy. Subjective Subjective Currently no c/o pain, at worst pain is 7/10 in the left breast. She presents with AROM of left Shld flex= 0-160, ABD= 0-150. MMT left shld Flex, ABD, ER all 4/5 within available ROM. Lymphedema Eval Classification of Lymphedema Secondary Lymphedema Yes Post-Surgical Lymphedema Yes Stage of Lymphedema Lymphedema stages Stage 0 (subjective c/o heaviness and aching) Skin Changes Dry Skin Yes Other Changes Yes Pain Scale Pain Scale (0-10) 7 Radiation Therapy Has received radiation therapy no Chemo Therapy Has received chemo therapy yes Affected Extremities Areas Affected by Lymphedema/Edema Left Upper Extremity Abdomen Left Breast Left Axilla Sub Axiallary Region Manual Lymphatic Drainage Treatment Area MLD Treatment Area Left Upper Extremity Abdomen Left Breast Left Axilla Sub Axiallary Region Wound Problems/Impairments Impairments Problems/Impairmments Palpation Tenderness Impaired Range of Motion Impaired Strength
== END 2018-09-29 09:05 | disposition home or self-care (01) ==
LOC: PT 09:00
PROVIDERS: Visit Provider Internal Medicine Medical Oncology
DX: I89.0 Lymphedema, not elsewhere classified (principal)
CPT/HCPCS: 97010; 97110; 97140; 97163

== ENCOUNTER 2018-10-10 08:37 | Outpatient (CLI) | payer MEDICARE, OTHER, SELFPAY ==
[2018-10-10 08:37] VITALS: BMI 33.7
[2018-10-10 09:03] LABS: Basophils # 0.1 K/mm3 (0-0.2); Basophils % 0.7 % (0.1-2.0); Eosinophils # 0.1 K/mm3 (0.0-0.4); Eosinophils % 1.1 % (0.1-12.0); Hematocrit 29.2 % (37.0-47.0); Hemoglobin 9.3 g/dL (12.2-16.2); Lymphocytes % 15.7 % (10-50); Mean Corpuscular HGB Conc 31.8 g/dL (31.8-35.4); Mean Corpuscular Hemoglobin 29.8 pg (27.0-31.2); Mean Corpuscular Volume 93.9 fl (81-99); Mean Platelet Volume 7.5 fl (7.4-10.4); Monocytes # 0.3 K/mm3 (0.1-1.0); Monocytes % 5.4 % (1.7-9.3); Neutrophils # 4.8 K/mm3 (1.8-7.8); Neutrophils % 77.1 % (37.0-80.0); Platelet Count 277 K/mm3 (142-424); Red Blood Count 3.11 M/mm3 (4.20-5.40); Red Cell Distribution Width 16.7 % (11.5-17.5); White Blood Count 6.2 K/mm3 (4.8-10.8)
[2018-10-10 09:16] LABS: Alanine Aminotransferase 33 U/L (12-78); Albumin Level 3.7 gm/dL (3.4-5.0); Alkaline Phosphatase 58 U/L (46-116); Anion Gap 14.1 mEq/L (5-15); Aspartate Amino Transferase 16 U/L (15-37); Bilirubin,Total 0.3 mg/dL (0.2-1.0); Blood Urea Nitrogen 25 mg/dL (7-18); Calcium 9.4 mg/dL (8.5-10.1); Carbon Dioxide 25 mmol/L (21.0-32.0); Chloride 104 mmol/L (98-107); Creatinine Clearance Estimated 63 mL/min (50-200); Creatinine,Serum 1.23 mg/dL (0.55-1.02); Estimated Glomerular Filt Rate 44 ml/min (>60); GFR (African American) 53 ML/MIN (>60); Globulin 3.7 gm/dl (1.3-3.2); Glucose 77 mg/dL (74-106); Potassium 5.1 mmoL/L (3.5-5.1); Sodium 138 mmol/L (136-145); Total Protein,Serum 7.4 gm/dL (6.4-8.2)
--- NOTE | 2018-10-10 10:08 | CA_ITS ---
PROCEDURE: 2-D M-mode and color Doppler study INDICATIONS FOR THE TEST: Chest pain COPD Heart Murmur Tobacco Smoking Palpitations Fatigue Syncope Edema Hypertension Diabetes Mellitus Rheumatic Fever SOB MURCIA Obesity Hyperlipidemia Family History HD Additional History POST CHEMO BREST CA PATIENT INFORMATION HEIGHT: 64 WEIGHT:185 GENDER: Female B/P:109/57 2-D/M-MODE INTERPRETATION: 2-D MEASUREMENTS OBSERVED VALUES IN CMS Right Ventricular Dimension (RVDd) 2.6 Interventricular Septum (Thickness)(IVsd) 1.0 Left Ventricular Internal Dimensions(LVIDd) 5.6 Left Ventricular Posterior Wall (Thickness)(LVPWd) 1.0 Aortic Root 3.5 Aortic Cusp Separation 1.4 Left Atrial Dimensions (LAD) 3.2 2D 1. Left atrium is qualitatively mildly enlarged, left ventricle is normal size, there is no concentric left ventricular hypertrophy, visually estimated ejection fraction 55% with no regional wall motion abnormality. 2. The right atrium and right ventricle are mildly enlarged with normal contractility. 3. The aortic valve is minimally thickened and fibrosed. 4. The mitral and tricuspid valve are grossly normal. 5. The pulmonic valve is poorly visualized. 6. No significant pericardial effusion noted. DOPPLER INTERROGATION: Doppler interrogation of the aortic, mitral and tricuspid valvular presence of mild mitral and tricuspid regurgitation, tricuspid regurgitation jet velocity is inadequate for calculation of the right ventricular systolic pressure, grade 1 diastolic dysfunction seen with tissue Doppler evidence of raised left atrial pressure. Inferior vena cava is normal size with normal inspiratory collapse. CONCLUSION: 1. Mildly enlarged left atrium, normal left ventricular size, visually estimated ejection fraction 55% with no regional motion abnormality, grade 1 diastolic dysfunction seen with tissue Doppler evidence of raised left atrial pressure. 2. Mild mitral and tricuspid regurgitation 3. The inferior vena cava is normal size with normal inspiratory collapse. 4. No significant pericardial effusion noted.
--- NOTE | 2018-10-10 10:32 | CT_ITS ---
CT chest w con HISTORY: ITS.REASON: HX BREAST CA ORDERING PHYSICIAN: Renetta Carrington MD PATIENT AGE: 68 years TECHNIQUE: Axial images obtained following the administration of 75 mL of Optiray 350 . Sagittal, and coronal reformatted images are also generated and reviewed. All CT scans at the facility use one or more dose reduction, viz: automated exposure control, ma/kV adjustment per patient size is including targeted exams where dose is matched to indication, i.e. head), or iterative reconstruction technique. FINDINGS: No previous exams available for comparison. No mediastinal or hilar mass or adenopathy. Coronary artery calcifications are present. There is mild tortuosity of the thoracic aorta without evidence of aneurysm or dissection. No suspicious pulmonary nodules. No infiltrates or effusions.There is a small dilated bronchus in the right upper lobe. Prior left mastectomy. No axillary adenopathy. No acute bony findings. There are degenerative changes in the thoracic spine. Upper abdominal images are unremarkable. IMPRESSION: 1. No convincing evidence of metastatic disease. 2. Coronary artery calcification. 3. Small dilated bronchus in the right apex.
== END 2018-10-10 11:08 | disposition home or self-care (01) ==
LOC: INF 08:37
PROVIDERS: PCP Family Medicine; Visit Provider Internal Medicine Medical Oncology
DX: Z51.11 Encounter for antineoplastic chemotherapy (principal); C50.912 Malignant neoplasm of unspecified site of left female breast
CPT/HCPCS: 71260; 80053; 85025; 93306; J1642; Q9967

== ENCOUNTER → 2018-11-09 12:29 | Outpatient (CLI) | payer MEDICARE, OTHER, SELFPAY ==
--- NOTE | 2018-11-09 12:35 | XR_ITS ---
XR DEXA axial skeleton HISTORY: ITS.REASON: OSTEOPENIA, BREAST CA ORDERING PHYSICIAN: Renetta Carrington MD PATIENT AGE: 68 years COMPARISON: None FINDINGS: The BMD measured at the left femoral neck is 7.96 g/cm squared with a T score of -1.7. This is considered Osteopenic according to the World Health Organization criteria. Fracture risk is Moderate. Treatment is advised. L1 L4 density has a T score of 0 IMPRESSION: Osteopenia with moderate fracture risk. Treatment is advised. Suggest spot exam October 2020
== END ==
PROVIDERS: PCP Family Medicine; Visit Provider Internal Medicine Medical Oncology
DX: M85.89 Other specified disorders of bone density and structure, multiple sites (principal)
CPT/HCPCS: 77080

== ENCOUNTER → 2018-12-07 06:16 | Outpatient (CLI) | payer MEDICARE, OTHER, SELFPAY ==
--- NOTE | 2018-12-07 06:23 | NM_ITS ---
CARDIOLITE SPECT MYOCARDIAL PERFUSION LEXISCAN, REST AND STRESS: History: Coronary artery disease, hypertension, diabetes, family history and abnormal EKG Procedure: Patient received a 0.4 mg of intravenous Lexiscan, resting heart rate was 68 bpm resting blood pressure 125/64, with Lexiscan maximum heart rate achieved was 103 bpm which is less than 85% of the maximum predicted heart rate and a blood pressure was 126/75. With Lexiscan patient complained of shortness of breath and stomach discomfort. Electrocardiogram: Resting electrocardiogram showed sinus rhythm rightward axis, with Lexiscan there is less than 1.[address] segment depression noted from the baseline EKG. The EKG portion of the Lexiscan Myoview is nondiagnostic. Cardiac stress and resting SPECT images: Cardiac stress and resting SPECT images were obtained using technetium 99 Myoview 31.5 mCi stress and 10.3 mCi at rest. Gated SPECT further analysis of segmental wall motion and calculation of the ejection fraction also done. Cardiac stress and resting SPECT images show decreased tracer activity in the anteroapical and apical wall some the resting images suggestive of reversible ischemia, computer derived ejection fraction is 57% with no regional wall motion abnormality, right ventricle is normal size and contractility. Conclusion: 1. The EKG portion of the Lexiscan Myoview is nondiagnostic. 2. Scintigraphic evidence of mild reversible ischemia involving the anteroapical and apical wall, computer derived ejection fraction is 57% with no regional wall motion abnormality, right ventricle is normal size and contractility. 3. Abnormal Lexiscan Myoview study.
--- NOTE | 2018-12-07 06:38 | HMH.ITSHM ---
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 []ZOLPIDEM TRAZODONE PRAVASTATIN METFORMIN LISINOPRIL DICLOFENAC VITAMIN B12 CITALOPRAM VITAMIN C ANASTROZOLE ALLOPURINOL PANTOPRAZOLE ONDANSETRON LEVOTHYROXINE GABAPENTIN
== END ==
PROVIDERS: PCP Family Medicine; Visit Provider Internal Medicine Cardiovascular Disease
DX: I25.10 Atherosclerotic heart disease of native coronary artery without angina pectoris (principal); R94.31 Abnormal electrocardiogram [ECG] [EKG]
CPT/HCPCS: 78452; 93017; A9502; J2785

== ENCOUNTER → 2019-01-18 09:22 | Outpatient (CLI) | payer MEDICARE, OTHER, SELFPAY ==
[2019-01-18 09:50] LABS: Basophils % 0.5 % (0.1-2.0); Eosinophils # 0.2 K/mm3 (0.0-0.4); Eosinophils % 4.1 % (0.1-12.0); Hematocrit 33.1 % (37.0-47.0); Hemoglobin 10.5 g/dL (12.2-16.2); Lymphocytes # 1.2 K/mm3 (0.7-4.5); Lymphocytes % 23.8 % (10-50); Mean Corpuscular HGB Conc 31.6 g/dL (31.8-35.4); Mean Corpuscular Hemoglobin 27.5 pg (27.0-31.2); Mean Platelet Volume 6.7 fl (7.4-10.4); Monocytes # 0.2 K/mm3 (0.1-1.0); Monocytes % 4.2 % (1.7-9.3); Neutrophils # 3.3 K/mm3 (1.8-7.8); Neutrophils % 67.4 % (37.0-80.0); Platelet Count 269 K/mm3 (142-424); Red Cell Distribution Width 13.6 % (11.5-17.5); White Blood Count 4.9 K/mm3 (4.8-10.8)
[2019-01-18 11:32] LABS: Alanine Aminotransferase 28 U/L (12-78); Albumin Level 3.6 gm/dL (3.4-5.0); Albumin/Globulin Ratio 0.9 (1.1-1.8); Alkaline Phosphatase 65 U/L (46-116); Anion Gap 11.2 mEq/L (5-15); Aspartate Amino Transferase 16 U/L (15-37); Bilirubin,Total 0.2 mg/dL (0.2-1.0); Blood Urea Nitrogen 30 mg/dL (7-18); Calcium 9.5 mg/dL (8.5-10.1); Carbon Dioxide 29 mmol/L (21.0-32.0); Chloride 104 mmol/L (98-107); Creatinine,Serum 0.87 mg/dL (0.55-1.02); Estimated Glomerular Filt Rate 65 ml/min (>60); GFR (African American) 79 ML/MIN (>60); Globulin 3.9 gm/dl (1.3-3.2); Glucose 119 mg/dL (74-106); Potassium 5.2 mmoL/L (3.5-5.1); Sodium 139 mmol/L (136-145); Total Protein,Serum 7.5 gm/dL (6.4-8.2)
== END ==
PROVIDERS: Visit Provider Internal Medicine Medical Oncology
DX: Z85.3 Personal history of malignant neoplasm of breast (principal)
CPT/HCPCS: 36415; 80053; 85025

== ENCOUNTER → 2019-05-03 15:14 | Outpatient (CLI) | payer MEDICARE, OTHER, SELFPAY ==
--- NOTE | 2019-05-03 15:18 | MM_ITS ---
PROCEDURE: MM DIG SC MAMM UNILAT RT CAD Patient Age:68Y CLINICAL INDICATION: SCREENING no hormones: No new complaints. Noncontributory family history Left mastectomy. COMPARISON: DXBI MM Dig mamm BI DX w/CAD from 03/24/2018 TECHNIQUE: Standard CC and MLO images were obtained. R2 CAD reviewed. FINDINGS: Right breast: Minimal residual fibroglandular elements; generalized fatty replacement with lower density density. but no dominant nor suspicious mass but no new areas of concern. Only right breast image (patient with 2018 left mastectomy ) IMPRESSION: Stable right mammogram. No new areas of concern but BI-RAD Category: 1 Negative FOLLOW-UP: 1YR 1 Year Follow-up (A letter has been sent to the patient regarding results of the study.) Dictated by: Gualberto Franco MD 05/04/2019 08:52 Electronically signed by Gualberto Franco MD in [place] 05/04/2019 08:52
== END ==
PROVIDERS: PCP Family Medicine; Visit Provider Internal Medicine Medical Oncology
DX: Z12.31 Encounter for screening mammogram for malignant neoplasm of breast (principal)
CPT/HCPCS: 77067

== ENCOUNTER → 2019-05-18 07:40 | Outpatient (CLI) | payer MEDICARE, OTHER, SELFPAY ==
[2019-05-18 07:56] LABS: Basophils % 0.5 % (0.1-2.0); Eosinophils # 0.2 K/mm3 (0.0-0.4); Eosinophils % 3.2 % (0.1-12.0); Hematocrit 34.9 % (37.0-47.0); Hemoglobin 10.4 g/dL (12.2-16.2); Lymphocytes # 1.1 K/mm3 (0.7-4.5); Lymphocytes % 22.1 % (10-50); Mean Corpuscular HGB Conc 29.8 g/dL (31.8-35.4); Mean Corpuscular Hemoglobin 27.7 pg (27.0-31.2); Mean Corpuscular Volume 92.8 fl (81-99); Mean Platelet Volume 7.9 fl (7.4-10.4); Monocytes # 0.2 K/mm3 (0.1-1.0); Monocytes % 4.6 % (1.7-9.3); Neutrophils # 3.6 K/mm3 (1.8-7.8); Neutrophils % 69.6 % (37.0-80.0); Platelet Count 287 K/mm3 (142-424); Red Blood Count 3.76 M/mm3 (4.20-5.40); White Blood Count 5.2 K/mm3 (4.8-10.8)
[2019-05-18 08:18] LABS: Alanine Aminotransferase 34 U/L (12-78); Albumin Level 3.6 gm/dL (3.4-5.0); Alkaline Phosphatase 63 U/L (46-116); Anion Gap 13.2 mEq/L (5-15); Aspartate Amino Transferase 27 U/L (15-37); Bilirubin,Total 0.2 mg/dL (0.2-1.0); Blood Urea Nitrogen 25 mg/dL (7-18); Calcium 8.6 mg/dL (8.5-10.1); Carbon Dioxide 27 mmol/L (21.0-32.0); Chloride 104 mmol/L (98-107); Creatinine,Serum 1.12 mg/dL (0.55-1.02); Estimated Glomerular Filt Rate 49 ml/min (>60); GFR (African American) 59 ML/MIN (>60); Globulin 3.7 gm/dl (1.3-3.2); Glucose 120 mg/dL (74-106); Potassium 5.2 mmoL/L (3.5-5.1); Sodium 139 mmol/L (136-145); Total Protein,Serum 7.3 gm/dL (6.4-8.2)
== END ==
PROVIDERS: Visit Provider Internal Medicine Medical Oncology
DX: C50.912 Malignant neoplasm of unspecified site of left female breast (principal)
CPT/HCPCS: 36415; 80053; 85025

== ENCOUNTER → 2019-10-26 08:44 | Outpatient (CLI) | payer MEDICARE, OTHER, SELFPAY ==
[2019-10-26 09:02] LABS: Basophils % 0.6 % (0.1-2.0); Eosinophils # 0.2 K/mm3 (0.0-0.4); Eosinophils % 4.2 % (0.1-12.0); Hematocrit 31.3 % (37.0-47.0); Hemoglobin 9.5 g/dL (12.2-16.2); Lymphocytes # 1.3 K/mm3 (0.7-4.5); Lymphocytes % 24.4 % (10-50); Mean Corpuscular HGB Conc 30.5 g/dL (31.8-35.4); Mean Corpuscular Hemoglobin 26.7 pg (27.0-31.2); Mean Corpuscular Volume 87.7 fl (81-99); Mean Platelet Volume 7.8 fl (7.4-10.4); Monocytes # 0.2 K/mm3 (0.1-1.0); Monocytes % 4.3 % (1.7-9.3); Neutrophils # 3.7 K/mm3 (1.8-7.8); Neutrophils % 66.5 % (37.0-80.0); Platelet Count 322 K/mm3 (142-424); Red Blood Count 3.57 M/mm3 (4.20-5.40); Red Cell Distribution Width 14.6 % (11.5-17.5); White Blood Count 5.5 K/mm3 (4.8-10.8)
[2019-10-26 09:10] LABS: Alanine Aminotransferase 30 U/L (12-78); Albumin Level 4.5 g/dl (3.5-5.0); Albumin/Globulin Ratio 1.3 (1.1-1.8); Alkaline Phosphatase 57 U/L (38-126); Anion Gap 10.9 mEq/L (5-15); Aspartate Amino Transferase 32 U/L (14-36); Bilirubin,Total 0.1 mg/dl (0.2-1.3); Blood Urea Nitrogen 28 mg/dl (7-17); Calcium 9.6 mg/dl (8.4-10.2); Carbon Dioxide 25 mmol/L (22.0-30.0); Chloride 106 mmol/L (98-107); Estimated Glomerular Filt Rate 55 ml/min (>60); GFR (African American) 67 ML/MIN (>60); Globulin 3.6 g/dL (1.3-3.2); Glucose 126 mg/dl (74-100); Potassium 4.9 mmoL/L (3.5-5.1); Sodium 137 mmol/L (136-145); Total Protein,Serum 8.1 g/dl (6.3-8.2)
[2019-10-26 12:56] LABS: Thyroid Stimulating Hormone 0.96 uIU/mL (0.465-4.68)
[2019-10-26 13:00] LABS: Ferritin 11.9 ng/ml (11.1-264)
[2019-10-27 07:16] LABS: Iron 60 ug/dL (27-139); Iron Saturation 16 % (15-55); UIBC 316 ug/dL (118-369)
[2019-10-27 07:40] LABS: Haptoglobin 210 mg/dL (37-355); Vitamin B12 557 pg/mL (232-1245)
[2019-10-27 11:13] LABS: Folate >20.0 ng/mL (>3.0)
[2019-10-27 14:20] LABS: Albumin 3.5 g/dL (2.9-4.4); Alpha-1-Globulin 0.2 g/dL (0.0-0.4); Alpha-2-Globulin 0.9 g/dL (0.4-1.0); Free Kappa Lt Chains 36.4 mg/L (3.3-19.4); Free Lambda Lt Chains 21.2 mg/L (5.7-26.3); Gamma Globulin 1.7 g/dL (0.4-1.8); Immunoglobulin A, Qn 254 mg/dL (87-352); Immunoglobulin G, Qn 1603 mg/dL (586-1602); Immunoglobulin M, Qn 55 mg/dL (26-217); Protein, Total 7.6 g/dL (6.0-8.5)
== END ==
PROVIDERS: Visit Provider Internal Medicine Medical Oncology
DX: C50.919 Malignant neoplasm of unspecified site of unspecified female breast (principal); Z79.899 Other long term (current) drug therapy
CPT/HCPCS: 36415; 80053; 82607; 82728; 82746; 82784; 83010; 83540; 83550; 83883; 84155; 84165; 84443; 85025; 86334

== ENCOUNTER → 2019-11-16 08:43 | Outpatient (CLI) | payer MEDICARE, OTHER, SELFPAY ==
--- NOTE | 2019-11-16 08:53 | XR_ITS ---
PROCEDURE: XR HAND RT MIN 3V CLINICAL INDICATION: carpal tunnel syndrome Pain COMPARISON: No exams were available for comparison FINDINGS: No fracture or dislocation. No lytic or blastic change. There is normal mineralization. Mild osteoarthritic changes are present at the 1st metacarpal-carpal joint and the 2nd and 3rd DIP joints. There is some cortical regularity involving the distal aspect of the 5th metacarpal which is nonspecific. Other findings:None. IMPRESSION: Mild degenerative changes, no acute finding Dictated by: Jeff Monique MD 11/16/2019 14:46 Electronically signed by Jeff Monique MD in [place] 11/16/2019 14:46
== END ==
PROVIDERS: PCP Family Medicine; Visit Provider Orthopaedic Surgery
DX: G56.01 Carpal tunnel syndrome, right upper limb (principal)
CPT/HCPCS: 73130

== ENCOUNTER 2019-11-16 10:51 | Outpatient (RCR) | payer MEDICARE, OTHER, SELFPAY | END 2019-11-16 11:15 | disposition home or self-care (01) | LOC: OT 10:51 | PROVIDERS: Visit Provider Orthopaedic Surgery | DX: G56.01 Carpal tunnel syndrome, right upper limb (principal) | CPT/HCPCS: 97763 ==

== ENCOUNTER 2019-12-13 16:00 | Outpatient (RCR) | payer MEDICARE, OTHER, SELFPAY ==
--- NOTE | 2019-11-15 09:39 | HMH.PTOPWND ---
Rehab Outpt Wound Evaluation Rehab OP Wound Evaluation Start: 11/15/19 08:01 Freq: Status: Active Protocol: Document 11/15/19 09:31 GEORGE (Rec: 11/15/19 09:39 PHORERENDIRA [id number]) Electronically Signed By Scooby Reese, PT 11/15/19 09:31 Subjective/History History History Pt is 69 yowf who presents with c/o increased edema and discomfort in the left axilla ~ 1.5 yrs S/P L mastectomy with 6 LN removed due to breast cancer. She reports increased feelings of edema and soreness as the day goes on and she has discomfort with raising her L arm above her head, which she does frequently at work. She reports PMH of DM-II with neuropathy, GERD, HL, and HTN. Subjective Subjective She reports pain pain 3/10 currently, 7/10 at worst with increased movement. 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 Lymphedema Eval Classification of Lymphedema Secondary Lymphedema Yes: post mastectomy Post-Surgical Lymphedema Yes Stemmer's sign Stemmer's Sign no Stage of Lymphedema Lymphedema stages Stage II (Pitting edema, increased fibrosis w/ decreased pitting) Skin Changes Dry Skin Yes Skin Folds Yes Other Changes Yes Pain Scale Pain Scale (0-10) 3 Radiation Therapy Has received radiation therapy no Chemo Therapy Has received chemo therapy yes Affected Extremities Areas Affected by Lymphedema/Edema Left Upper Extremity,Abdomen, Left Breast,Left Axilla,Sub Axiallary Region Manual Lymphatic Drainage Treatment Area MLD Treatment Area Left Upper Extremity,Abdomen, Left Breast,Left Axilla,Sub Axiallary Region Wound Problems/Impairments Impairments Problems/Impairmments Palpation Tenderness,Impaired Range of Motion,Impaired Strength,Impaired Endurance, Impaired Lifting,Impaired Recreational Activities, Impaired Work Activities, Incr
== END 2019-12-13 16:05 | disposition home or self-care (01) ==
LOC: PT 16:00
PROVIDERS: PCP Family Medicine; Visit Provider Internal Medicine Medical Oncology
DX: I89.0 Lymphedema, not elsewhere classified (principal); C50.912 Malignant neoplasm of unspecified site of left female breast
CPT/HCPCS: 97110; 97140; 97162

== ENCOUNTER → 2020-04-11 09:11 | Outpatient (CLI) | payer MEDICARE, OTHER, SELFPAY ==
[2020-04-11 09:33] LABS: Basophils % 0.6 % (0.1-2.0); Eosinophils # 0.3 K/mm3 (0.0-0.4); Hematocrit 34.2 % (37.0-47.0); Hemoglobin 11.1 g/dL (12.2-16.2); Lymphocytes # 1.4 K/mm3 (0.7-4.5); Lymphocytes % 22.5 % (10-50); Mean Corpuscular HGB Conc 32.4 g/dL (31.8-35.4); Mean Corpuscular Hemoglobin 28.9 pg (27.0-31.2); Mean Corpuscular Volume 89.3 fl (81-99); Mean Platelet Volume 7.8 fl (7.4-10.4); Monocytes # 0.3 K/mm3 (0.1-1.0); Monocytes % 4.9 % (1.7-9.3); Neutrophils # 4.2 K/mm3 (1.8-7.8); Neutrophils % 66.9 % (37.0-80.0); Platelet Count 300 K/mm3 (142-424); Red Blood Count 3.83 M/mm3 (4.20-5.40); Red Cell Distribution Width 14.1 % (11.5-17.5); White Blood Count 6.3 K/mm3 (4.8-10.8)
[2020-04-11 10:12] LABS: Chloride 103 mmol/L (98-107); Potassium 5.2 mmoL/L (3.5-5.1); Sodium 139 mmol/L (136-145)
[2020-04-11 10:14] LABS: Blood Urea Nitrogen 17 mg/dl (7-17); Estimated Glomerular Filt Rate 62 ml/min (>60); GFR (African American) 75 ML/MIN (>60)
[2020-04-11 10:15] LABS: Alanine Aminotransferase 39 U/L (12-78); Albumin Level 4.4 g/dl (3.5-5.0); Albumin/Globulin Ratio 1.3 (1.1-1.8); Alkaline Phosphatase 61 U/L (38-126); Anion Gap 16.2 mEq/L (5-15); Aspartate Amino Transferase 43 U/L (14-36); Bilirubin,Total 0.3 mg/dl (0.2-1.3); Carbon Dioxide 25 mmol/L (22.0-30.0); Globulin 3.3 g/dL (1.3-3.2); Glucose 116 mg/dl (74-100); Iron 103 ug/dL (37-170); Total Protein,Serum 7.7 g/dl (6.3-8.2)
[2020-04-11 10:25] LABS: Total Iron Binding Capacity 384 ug/dL (265-497)
== END ==
PROVIDERS: Visit Provider Internal Medicine Medical Oncology
DX: C50.912 Malignant neoplasm of unspecified site of left female breast (principal)
CPT/HCPCS: 36415; 80053; 83540; 83550; 85025

== ENCOUNTER → 2020-04-18 08:32 | Outpatient (CLI) | payer MEDICARE, OTHER, SELFPAY ==
--- NOTE | 2020-04-18 08:39 | MM_ITS ---
PROCEDURE: MM DIG SCREENING MAMM BI W/CAD Referring Doctor: Renetta Carrington Patient Age:69Y CLINICAL INDICATION: SCREENING 69-year-old. The left mastectomy for breast cancer. No complaints nor clinical concerns at right breast. No hormones, noncontributory family history COMPARISON: [facility] DIGMAMMS MAMMOGRAM SCREEN-LOTTERY SALES CLERK N/C from 02/08/2006 MG DIGMAMMS MAMMOGRAM SCREEN-LOTTERY SALES CLERK N/C from 10/06/2007 MG DMSB DIG MAMM-SCREEN JESIKA from 03/06/2015 [facility] DXBI MM Dig mamm BI DX w/CAD from 03/24/2018 MG MM DIG SC MAMM UNILAT RT CAD from 05/03/2019 TECHNIQUE: Standard CC and MLO images were obtained. R2 CAD reviewed. Bilateral digital breast tomosynthesis included. FINDINGS: Overall right a breast appear stable with no new areas of significant concern. [id number] residual fibroglandular elements appear stable the right breast with no dominant or suspicious mass. Stable glandular, parenchymal pattern Right breast no new findings . subtle small area of density deep breast on CC view and MLO view. I strongly favor it is more likely overlapping shadow but given this small area of density and the patient's higher risk profile, to be extra cautious I would suggest a follow-up spot views and ultrasound right breast at patient's convenience over the next few weeks.. There was no urgency and actually additional time may be helpful and further excluding any new features here. Again this tiny density seems to dissipates on axillary CC view and tomosynthesis images and thus appears to be merely overlapping shadow feature; (but after reviewing old films and noting fairly rapid appearance abnormality at the contralateral left breast, this patient with benefit from particularly cautious approach.) IMPRESSION: Small focus density at deep right breast on initial MLO and CC views seems to dissipate on subsequent images- But to be particularly cautious in this higher risk patient, I would suggest she return spot views and ultrasound over the next few weeks to further evaluate this region-to further support it is merely overlapping fibroglandular as suspected today . BI-RAD Category: 0 Need Additional Imaging Evaluation FOLLOW-UP: Follow-up Recommended Follow-up imaging to include: Cc and MLO spot views with full 90 degree view right breast along with ultrasound right breast to be performed over the next few weeks,-to help further exclude any very early features right breast (A letter has been sent to the patient regarding results of the study.) Dictated by: Gualberto Franco MD 04/24/2020 11:19 Gualberto Franco MD in [place] 04/24/2020 11:19
--- NOTE | 2020-04-18 08:40 | CT_ITS ---
PROCEDURE: CT ABDOMEN PELVIS W CON CLINICAL INDICATION: BREAST CANCER HX OF LEFT BREAST CA,LUQ BLOATING COMPARISON: CT ABDPELW CT abdomen pelvis w con from 09/25/2018 TECHNIQUE: IV Contrast: 75ML Isovue 370 Oral Contrast None Axial images obtained with sagittal and coronal reformats. All CT scans at the facility use one or more dose reduction, viz: automated exposure control, ma/kV adjustment per patient size (including targeted exams where dose is matched to indication, i.e. head), or iterative reconstruction technique. FINDINGS: LOWER THORAX: No acute finding ABDOMEN & PELVIS: Mild fatty liver. No focal liver lesion evident. The gallbladder, spleen, adrenal glands, and pancreas have an unremarkable appearance. There are few small celiac nodes and portal nodes not significantly changed. No renal or ureteral calculi. There is a 3 cm left renal cyst. No intestinal obstruction or free air. No evidence of appendicitis. There is colonic diverticulosis but no evidence of diverticulitis. No pelvic mass or abnormal fluid collection evident. No bony destructive process. No lytic or blastic lesions. There is mild anterolisthesis of L4 on L5 not significantly changed. IMPRESSION: Stable CT appearance of the abdomen and pelvis. No convincing evidence of metastatic disease or other acute anomaly. Dictated by: Jeff Monique MD 04/19/2020 08:50 Jeff Monique MD in [facility] 04/19/2020 08:50
--- NOTE | 2020-04-18 08:51 | CT_ITS ---
PROCEDURE: CT CHEST W CON CLINCAL INDICATION: BREAST CA HX OF LEFT BREAST CA, LUQ BLOATING COMPARISON: CT CHESTW CT chest w con from 10/10/2018 TECHNIQUE: IV Contrast: 75ml Isovue 370 Axial images obtained with sagittal and coronal reformats. All CT scans at the facility use one or more dose reduction, viz: automated exposure control, ma/kV adjustment per patient size (including targeted exams where dose is matched to indication, i.e. head), or iterative reconstruction technique. FINDINGS: HEART AND MEDIASTINAL STRUCTURES: Coronary artery calcifications. Mild tortuosity of thoracic aorta. No mediastinal or hilar mass. Mild nonspecific thickening of the distal esophagus. Prior left mastectomy. LUNGS AND PLEURAL SPACES: Mildly dilated bronchus once again noted involving the right upper lobe not significantly changed. There is a stable 3 mm nodule in the right lower lobe. BONY STRUCTURES: Mild upper thoracic curvature convex right. Mild lower thoracic curvature convex left. No acute bony findings. UPPER ABDOMEN: Unremarkable. ADDITIONAL FINDINGS: No other significant abnormalities. IMPRESSION: As above, no change with no acute finding. No evidence of metastatic disease. Dictated by: Jeff Monique MD 04/19/2020 08:45 Jeff Monique MD in [facility] 04/19/2020 08:45
== END ==
PROVIDERS: PCP Family Medicine; Visit Provider Internal Medicine Medical Oncology
DX: Z12.31 Encounter for screening mammogram for malignant neoplasm of breast (principal); C50.912 Malignant neoplasm of unspecified site of left female breast
CPT/HCPCS: 71260; 74177; 77063; 77067; Q9967

== ENCOUNTER → 2020-05-07 12:37 | Outpatient (CLI) | payer MEDICARE, OTHER, SELFPAY ==
--- NOTE | 2020-05-07 12:51 | MM_ITS ---
PROCEDURE: MM DIG MAMM DX UNILAT RT CAD Digital Breast Tomosynthesis Included CLINICAL INDICATION: ABN MAMM Follow-up abnormal mammogram COMPARISON: MG DXBI MM Dig mamm BI DX w/CAD from 03/24/2018 MG MM DIG SC MAMM UNILAT RT CAD from 05/03/2019 MG MM DIG SCREENING MAMM BI W/CAD from 04/18/2020 US US BREAST RT COMPLETE from 05/07/2020 TECHNIQUE: Standard CC and MLO images and 3D Tomosynthesis was obtained. R2 CAD reviewed. FINDINGS: There is average fibroglandular tissue. The area of increased density noted on the MLO appears to compress out. Right breast ultrasound complete with axilla. There is a 4 mm hypoechoic nodule in the retroareolar region possibly due to a complicated cyst. No other significant anomalies are evident. IMPRESSION: Probably benign findings. Suggest 6 month mammo and sonographic follow-up BI-RAD Category: 3 Probably Benign Finding Short Term Follow-up FOLLOW-UP: 6M 6Month Follow-up (A letter has been sent to the patient regarding results of the study.) Dictated by: Jeff Monique MD 05/24/2020 10:13 Jeff Monique MD in [facility] 05/24/2020 10:13
== END ==
PROVIDERS: PCP Family Medicine; Visit Provider Internal Medicine Medical Oncology
DX: R92.8 Other abnormal and inconclusive findings on diagnostic imaging of breast (principal)
CPT/HCPCS: 76641; 77061; 77065; G0279

== ENCOUNTER → 2020-11-15 12:20 | Outpatient (CLI) | payer MEDICARE, OTHER, SELFPAY ==
--- NOTE | 2020-11-15 12:28 | XR_ITS ---
PROCEDURE: XR WRIST RT MIN 3V CLINICAL INDICATION: RT wrist cyst COMPARISON: No exams were available for comparison FINDINGS: No fracture or dislocation. No lytic or blastic change. There is normal mineralization. Mild osteoarthritic changes are present at the 1st metacarpal-carpal joint. No bony lytic changes apparent. Minimal prominence of the scapholunate space. Minimal vascular calcification. Other findings:None. IMPRESSION: Mild degenerative changes with mild prominence of the scapholunate space which could be seen with ligamentous injury. No lytic changes apparent Dictated by: Jeff Monique MD 11/15/2020 13:58 Jeff Monique MD in [place] 11/15/2020 13:58
== END ==
LOC: RAD 12:24
PROVIDERS: PCP Family Medicine; Visit Provider Orthopaedic Surgery
DX: M67.40 Ganglion, unspecified site (principal)
CPT/HCPCS: 73110

== ENCOUNTER → 2021-02-27 10:13 | Outpatient (CLI) | payer MEDICARE, OTHER, SELFPAY ==
[2021-02-27 10:44] LABS: Basophils % 0.7 % (0.1-2.0); Eosinophils # 0.1 K/mm3 (0.0-0.4); Eosinophils % 2.9 % (0.1-12.0); Hematocrit 31.7 % (37.0-47.0); Hemoglobin 10.4 g/dL (12.2-16.2); Lymphocytes # 1.5 K/mm3 (0.7-4.5); Lymphocytes % 29.9 % (10-50); Mean Corpuscular HGB Conc 32.8 g/dL (31.8-35.4); Mean Corpuscular Hemoglobin 30.6 pg (27.0-31.2); Mean Corpuscular Volume 93.4 fl (81-99); Mean Platelet Volume 7.3 fl (7.4-10.4); Monocytes # 0.2 K/mm3 (0.1-1.0); Monocytes % 4.8 % (1.7-9.3); Neutrophils # 3.1 K/mm3 (1.8-7.8); Neutrophils % 61.8 % (37.0-80.0); Platelet Count 291 K/mm3 (142-424); Red Cell Distribution Width 14.3 % (11.5-17.5)
[2021-02-27 11:19] LABS: Chloride 106 mmol/L (98-107); Potassium 4.8 mmoL/L (3.5-5.1); Sodium 140 mmol/L (136-145)
[2021-02-27 11:22] LABS: Alanine Aminotransferase 52 U/L (12-78); Albumin Level 4.1 g/dl (3.5-5.0); Albumin/Globulin Ratio 1.3 (1.1-1.8); Alkaline Phosphatase 74 U/L (38-126); Anion Gap 16.8 mEq/L (5-15); Aspartate Amino Transferase 63 U/L (14-36); Blood Urea Nitrogen 20 mg/dl (7-17); Carbon Dioxide 22 mmol/L (22.0-30.0); Estimated Glomerular Filt Rate 55 ml/min (>60); GFR (African American) 67 ML/MIN (>60); Globulin 3.1 g/dL (1.3-3.2); Total Protein,Serum 7.2 g/dl (6.3-8.2)
[2021-02-27 11:23] LABS: Glucose 101 mg/dl (74-100)
[2021-02-27 11:29] LABS: Bilirubin,Total 0.1 mg/dl (0.2-1.3)
== END ==
PROVIDERS: Visit Provider Internal Medicine Medical Oncology
DX: C50.911 Malignant neoplasm of unspecified site of right female breast (principal); Z17.0 Estrogen receptor positive status [ER+]
CPT/HCPCS: 36415; 80053; 85025

== ENCOUNTER → 2021-03-06 14:22 | Outpatient (CLI) | payer MEDICARE, OTHER, SELFPAY ==
--- NOTE | 2021-03-06 14:24 | MM_ITS ---
PROCEDURE: MM DIG MAMM DX UNILAT RT CAD Digital Breast Tomosynthesis Included CLINICAL INDICATION: f/u rt breast, h/o lt breast cancer COMPARISON: MG MM DIG SC MAMM UNILAT RT CAD from 05/03/2019 MG MM DIG SCREENING MAMM BI W/CAD from 04/18/2020 US US BREAST RT COMPLETE from 05/07/2020 MG MM DIG MAMM DX UNILAT RT CAD from 05/07/2020 TECHNIQUE: Standard images and 3D tomosynthesis performed along with spot compression views. FINDINGS: There are scattered areas of fibroglandular density No malignant appearing mass or malignant-appearing microcalcification. Spot compression views show no evidence of architectural distortion. Benign-appearing calcifications are present. No suspicious appearing mass, malignant-appearing microcalcification, architectural distortion, or skin thickening. No significant change. IMPRESSION: Benign findings. BI-RAD Category: 2 Benign Finding FOLLOW-UP: 6M 6 Month Follow-up Recommend left screening mammogram April 2021. Also recommend right breast ultrasound at that time to follow the hypoechoic nodule seen on 05/07/2020. (A letter has been sent to the patient regarding results of the study.) Dictated by: Jeff Monique MD 03/12/2021 11:52 Jeff Monique MD in [place] 03/12/2021 11:52
== END ==
PROVIDERS: PCP Family Medicine; Visit Provider Family Medicine
DX: R92.8 Other abnormal and inconclusive findings on diagnostic imaging of breast (principal); Z85.3 Personal history of malignant neoplasm of breast
CPT/HCPCS: 77061; 77063; 77065; 77067; G0279

== ENCOUNTER 2021-12-19 06:39 | Emergency (ER) | payer MEDICARE, OTHER, SELFPAY ==
[2021-12-19 06:41] VITALS: BP 164/81; PULSE 90; RESP 16; TEMP 37.1; O2SAT 98; BMI 29.8
[2021-12-19 06:48] VITALS: BMI 29.8
--- NOTE | 2021-12-19 06:48 | XR_ITS ---
FINAL REPORT CLINICAL HISTORY: fall from bed this morning FINDINGS: The heart size is normal. The mediastinum is normal. There is no focal infiltrate or edema. There are no pleural effusions. There is no pneumothorax. There is no osseous abnormality. IMPRESSION: No acute cardiopulmonary process Reviewed, Interpreted and Dictated by Bradley Martini III, MD Transcribed by Bhanu Feliz Authenticated and . [facility]
--- NOTE | 2021-12-19 06:48 | XR_ITS ---
FINAL REPORT CLINICAL HISTORY: fall from bed this morning FINDINGS: AP PELVIS: A single view of the pelvis was obtained. There is no acute fracture or dislocation. Visualized joint spaces are normally aligned. Soft tissues are unremarkable. IMPRESSION: No acute process. Reviewed, Interpreted and Dictated by Bradley Martini III, MD Transcribed by Bhanu Feliz Authenticated and [facility]
--- NOTE | 2021-12-19 06:48 | CT_ITS ---
FINAL REPORT TECHNIQUE: Then section axial CT images of the chest were obtained with contrast. Three-D reformatted images were also obtained.This study was performed with techniques to keep radiation doses as low as reasonably achievable (ALARA). Individualized dose reduction techniques using automated exposure control or adjustment of mA and/or kV according to the patient''s size were employed. CLINICAL HISTORY: fall from bed this morning FINDINGS: There is no evidence of pulmonary embolism. There is no evidence of thoracic aortic aneurysm or dissection. There is no evidence of mediastinal or hilar mass or adenopathy. There is no evidence of pulmonary mass or suspicious nodule. No localized inflammatory process is seen within the lungs. There is mild bibasilar atelectasis. There is a fracture of the distal left clavicle. There is a nondisplaced fracture of the left 2nd distal rib. There is no pneumothorax. IMPRESSION: 1. No evidence of pulmonary embolism. 2. Nondisplaced distal left 2nd rib fracture without pneumothorax. 3. Fracture of the distal left clavicle. Reviewed, Interpreted and Dictated by Bradley Martini III, MD Transcribed by Bhanu Feliz Authenticated and [facility]
--- NOTE | 2021-12-19 06:48 | CT_ITS ---
FINAL REPORT CLINICAL HISTORY: fall from bed this morning FINDINGS: Axial images of the head were obtained without contrast. Coronal reformatted images were also obtained.This study was performed with techniques to keep radiation doses as low as reasonably achievable (ALARA). Individualized dose reduction techniques using automated exposure control or adjustment of mA and/or kV according to the patient's size were employed. There is no evidence of intracranial hemorrhage or mass. The ventricular size is within normal limits. There is no evidence of shift of the midline structures. No abnormal extra axial fluid collection is identified. No skull abnormality is seen on the bone window images. IMPRESSION: No acute intracranial abnormality. Reviewed, Interpreted and Dictated by Bradley Martini III, MD Transcribed by Bhanu Feliz Authenticated and [facility]
--- NOTE | 2021-12-19 06:48 | CT_ITS ---
FINAL REPORT CLINICAL HISTORY: fall from bed this morning FINDINGS: Axial CT images of the cervical spine were obtained without contrast. Sagittal and coronal reformatted images were also obtained. This study was performed with techniques to keep radiation doses as low as reasonably achievable (ALARA). Individualized dose reduction techniques using automated exposure control or adjustment of mA and/or kV according to the patient's size were employed. There is no evidence of fracture or dislocation. The bony alignment is normal. There are mild degenerative changes. There is no evidence of canal stenosis. No paraspinous soft tissue abnormality is seen. Limited images of the upper thorax are unremarkable. IMPRESSION: No fracture or acute bony abnormality identified. Reviewed, Interpreted and Dictated by Bradley Martini III, MD Transcribed by Bhanu Feliz Authenticated and [facility]
--- NOTE | 2021-12-19 06:48 | CT_ITS ---
FINAL REPORT TECHNIQUE: After the administration of intravenous contrast, axial images were obtained through the abdomen and pelvis by computed tomography. The study was performed with techniques to keep radiation dose as low as reasonably achievable, (ALARA). Individual dose reduction techniques using automated exposure control or adjustment of mA and/or kV according to the patient's size were employed. CLINICAL HISTORY: fall from bed this morning FINDINGS: Abdomen: There is mild bibasilar atelectasis. The liver is normal in size and attenuation. There is mild nonspecific gallbladder wall thickening. Bilateral renal cysts are identified. The spleen is unremarkable. The adrenals are normal. The pancreas is unremarkable. The kidneys enhance appropriately. The aorta is normal in caliber. There is no free fluid or adenopathy. Pelvis: The appendix is normal. There is sigmoid diverticulosis without evidence of diverticulitis. The urinary bladder is unremarkable. There is no free fluid or adenopathy. IMPRESSION: Mild nonspecific gallbladder wall thickening. Sigmoid diverticulosis without evidence of diverticulitis. Reviewed, Interpreted and Dictated by Bradley Martini III, MD Transcribed by Nanda Wright Authenticated and [facility]
--- NOTE | 2021-12-19 06:54 | XR_ITS ---
FINAL REPORT CLINICAL HISTORY: fall from bed this morning FINDINGS: LEFT SHOULDER: 3 views of the left shoulder were obtained. There is a fracture of the distal left clavicle with mild superior displacement of the distal fracture fragment. There is mild AC joint degenerative change. There is no soft tissue abnormality. IMPRESSION: Fracture of the distal clavicle. Reviewed, Interpreted and Dictated by Bradley Martini III, MD Transcribed by Bhanu Feliz Authenticated and [facility]
[2021-12-19 06:59] LABS: Basophils # 0.1 K/mm3 (0-0.2); Basophils % 0.5 % (0.1-2.0); Eosinophils # 0.1 K/mm3 (0.0-0.4); Hematocrit 35.4 % (37.0-47.0); Hemoglobin 10.9 g/dL (12.2-16.2); Lymphocytes % 10.2 % (10-50); Mean Corpuscular HGB Conc 30.9 g/dL (31.8-35.4); Mean Corpuscular Hemoglobin 28.9 pg (27.0-31.2); Mean Corpuscular Volume 93.5 fl (81-99); Mean Platelet Volume 7.4 fl (7.4-10.4); Monocytes # 0.4 K/mm3 (0.1-1.0); Neutrophils # 8.5 K/mm3 (1.8-7.8); Neutrophils % 84.3 % (37.0-80.0); Platelet Count 308 K/mm3 (142-424); Red Blood Count 3.79 M/mm3 (4.20-5.40); White Blood Count 10.1 K/mm3 (4.8-10.8)
[2021-12-19 07:08] LABS: Alanine Aminotransferase 48 U/L (12-78); Albumin Level 4.2 g/dl (3.5-5.0); Albumin/Globulin Ratio 1.1 (1.1-1.8); Alkaline Phosphatase 82 U/L (38-126); Anion Gap 11.2 mEq/L (5-15); Aspartate Amino Transferase 58 U/L (14-36); Blood Urea Nitrogen 19 mg/dl (7-17); Carbon Dioxide 28 mmol/L (22.0-30.0); Chloride 104 mmol/L (98-107); Creatinine Clearance Estimated 65 mL/min (50-200); Estimated Glomerular Filt Rate 62 ml/min (>60); GFR (African American) 75 ML/MIN (>60); Globulin 3.8 g/dL (1.3-3.2); Glucose 179 mg/dl (74-100); Potassium 5.2 mmoL/L (3.5-5.1); Sodium 138 mmol/L (136-145)
[2021-12-19 07:11] LABS: Bilirubin,Total < 0.1 mg/dl (0.2-1.3)
--- NOTE | 2021-12-19 07:19 | HMH.EDFALL ---
ED Disposition Condition on Discharge: Good - Critical Care Critical Care Time: No <Rayshawn Moreno - Last Filed: 12/19/21 09:07> Condition on Discharge: Fair <Aravind Gaines - Last Filed: 12/19/21 10:05> Clinical Impression: Fall Qualifiers: Encounter type: initial encounter Qualified Code(s): W19.XXXA - Unspecified fall, initial encounter Contusion of rib on left side Qualifiers: Encounter type: initial encounter Qualified Code(s): S20.212A - Contusion of left front wall of thorax, initial encounter Blunt abdominal trauma Qualifiers: Encounter type: initial encounter Qualified Code(s): S39.91XA - Unspecified injury of abdomen, initial encounter Rib fracture Qualifiers: Encounter type: initial encounter Rib fracture type: single rib Fracture type: closed Laterality: left Qualified Code(s): S22.32XA - Fracture of one rib, left side, initial encounter for closed fracture Clavicle fracture Qualifiers: Encounter type: initial encounter Clavicle location: lateral end Fracture type: closed Fracture alignment: displaced Laterality: left Qualified Code(s): S42.032A - Displaced fracture of lateral end of left clavicle, initial encounter for closed fracture Disposition: Home, Self-Care Instructions: How to Prevent Falls, DI for Clavicle Fracture-Adult, DI for Rib Fracture, How to Use a Sling Additional Instructions: [place] as needed for pain. Additional instructions for FRACTURED (BROKEN) BONE: See Dr. Arenas as soon as possible for further evaluation, call for appointment. Wear sling until seen by Dr. Arenas. Apply ice to shoulder 20 minutes 4-5 times a day to reduce pain and swelling. Return to an emergency department immediately if you have uncontrollable pain, loss of feeling or inability to move your injured extremity. Additional instructions for RIB INJURIES: Hold a pillow against your injured ribs to help with pain when coughing or sneezing. Sleep with several pillows to help support you in the most comfortable position. Take deep breaths frequently. Use incentive spirometer 4-5 times a day. Return immediately if shortness of breath, intolerable pain, coughing of blood, abdominal pain or vomiting. Additional instructions for CONTROLLED SUBSTANCES: You have been prescribed a medication that is a controlled substance. Controlled substances include pain medications known as opiates and sedative nerve medications known as benzodiazepines. Tramadol, fioricet, and gabapentin are also controlled substances. Some common opiates include: Codeine (such as Tylenol #3) Hydrocodone (Vicodin, Lortab, Lorcet, [place]) Oxycodone (Percocet, Percodan, Oxycodone, Oxy IR) Some common benzodiazepines include: Diazepam (Valium) Lorazepam (Ativan) Alprazolam (Xanax) Clonazepam (Klonopin) Oxazepam (Serax) All of these controlled substances are highly addictive and frequently abused. Misuse can and frequently does lead to addiction as well as overdose and . Medication should be stored in a locked cabinet or other secure storage unit. Do not store the medication in a motor vehicle. Short term supplies, 3 days or less, are prescribed because of the highly addictive nature of the medication. Any of the controlled substance medication NOT taken should be disposed of properly and NOT SAVED. The recommended method of disposing of unused medications is: Place the medicines in a sealable plastic bag. If the medicine is a solid, crush it or add water to dissolve it. Add something undesirable (cat litter, coffee grounds, etc.) Dispose of sealed bag in household trash Do not flush or pour unused medicines down a sink or drain. Controlled substances should not be shared, given away or sold. Because of the addictive nature and frequent abuse, these medications are sometimes stolen. These medications should be kept in a safe place where they cannot be stolen. Do not keep them in your car or purse. Lost or st
--- NOTE | 2021-12-19 07:30 | PC.NURSE ---
Pt to Rad
--- NOTE | 2021-12-19 07:58 | PC.NURSE ---
pt return from CT
--- NOTE | 2021-12-19 07:59 | PC.NURSE ---
checked on pt at this time, pt given pillow. pt has family at [place]. no other needs at this time. Will continue to monitor
--- NOTE | 2021-12-19 09:00 | PC.NURSE ---
rounded on pt at this time, pt notified we are waiting on radiology readings still. Pt states no needs at this time. family at BS. will continue to monitor
--- NOTE | 2021-12-19 09:45 | PC.NURSE ---
GLENIS KRAUSE at going over pt results at this time.
--- NOTE | 2021-12-19 10:07 | PC.NURSE ---
pt placed in sling
--- NOTE | 2021-12-19 10:35 | PC.NURSE ---
resp came and did teaching on spirometry
[2021-12-19 10:36] VITALS: BP 114/72; PULSE 71; RESP 20; TEMP 36.8; O2SAT 96
== END 2021-12-19 10:36 | disposition home or self-care (01) ==
PROVIDERS: Emergency Provider Emergency Medicine; PCP Family Medicine
DX: S42.032A Displaced fracture of lateral end of left clavicle, initial encounter for closed fracture (principal); S22.32XA Fracture of one rib, left side, initial encounter for closed fracture; S20.212A Contusion of left front wall of thorax, initial encounter; S39.91XA Unspecified injury of abdomen, initial encounter; R94.31 Abnormal electrocardiogram [ECG] [EKG]; J98.11 Atelectasis; I10 Essential (primary) hypertension; I50.30 Unspecified diastolic (congestive) heart failure; I25.10 Atherosclerotic heart disease of native coronary artery without angina pectoris; K21.9 Gastro-esophageal reflux disease without esophagitis; E78.5 Hyperlipidemia, unspecified; E11.9 Type 2 diabetes mellitus without complications; Z79.52 Long term (current) use of systemic steroids; Z79.82 Long term (current) use of aspirin; Z79.84 Long term (current) use of oral hypoglycemic drugs; Z79.899 Other long term (current) drug therapy; Z88.0 Allergy status to penicillin; Z90.10 Acquired absence of unspecified breast and nipple; Z85.9 Personal history of malignant neoplasm, unspecified; Z82.49 Family history of ischemic heart disease and other diseases of the circulatory system; Z83.3 Family history of diabetes mellitus; Z80.9 Family history of malignant neoplasm, unspecified; W06.XXXA Fall from bed, initial encounter
CPT/HCPCS: 70450; 71045; 71275; 72125; 72170; 73030; 74177; 80053; 85025; 99285; Q9967

== ENCOUNTER → 2022-01-09 09:55 | Outpatient (CLI) | payer MEDICARE, OTHER, SELFPAY ==
--- NOTE | 2022-01-09 09:59 | XR_ITS ---
FINAL REPORT CLINICAL HISTORY: fracture clavicle follow up COMPARISON: December 19, 2021 FINDINGS: 2 views of the left clavicle were obtained. Again seen is a distal clavicle fracture. There is some callus formation. The AC joint is intact. There is no soft tissue abnormality. IMPRESSION: Distal left clavicle fracture with some callus formation. Reviewed, Interpreted and Dictated by Marlys Jackson MD Transcribed by Bhanu Feliz Authenticated and [facility]
== END ==
PROVIDERS: PCP Family Medicine; Visit Provider Orthopaedic Surgery
DX: S42.002A Fracture of unspecified part of left clavicle, initial encounter for closed fracture (principal)
CPT/HCPCS: 73000

== ENCOUNTER → 2022-01-20 14:38 | Outpatient (CLI) | payer MEDICARE, OTHER, SELFPAY ==
--- NOTE | 2022-01-20 14:43 | MR_ITS ---
FINAL REPORT CLINICAL HISTORY: shoulder pain. PATIENT FELL AND LANDED ON SHOULDER [id number] AGO. WEAKNESS IN ARM. COMPARISON: Plain film dated 12/19/2021 FINDINGS: Multiplanar MR imaging of the left shoulder was performed without contrast. Motion on many of the images decreases exam sensitivity. There is a focal full-thickness tear of the distal supraspinatus tendon measuring approximately 7 mm in AP dimensions. There is a partial thickness articular surface tear of the infraspinatus tendon involving greater than 50% of tendon thickness. There is a fracture of the distal clavicle with bone marrow edema. The a.c. joint is intact. A small amount of fluid is seen in the subacromial/subdeltoid bursa. The glenoid labrum is intact. The long head of the biceps tendon is intact. No significant glenohumeral joint effusion is seen. The musculature is intact. There is no evidence of soft tissue mass. IMPRESSION: Distal clavicle fracture. Intact AC joint. Full-thickness supraspinatus tendon tear. Partial thickness infraspinatus tendon tear, greater than 50%. Reviewed, Interpreted and Dictated by Bradley Martini III, MD Transcribed by Bhanu Feliz Authenticated and [facility]
== END ==
PROVIDERS: PCP Family Medicine; Visit Provider Orthopaedic Surgery
DX: M25.512 Pain in left shoulder (principal)
CPT/HCPCS: 73221

== ENCOUNTER → 2022-03-19 09:21 | Outpatient (CLI) | payer MEDICARE, OTHER, SELFPAY ==
[2022-03-19 10:34] LABS: Basophils # 0.1 K/mm3 (0-0.2); Basophils % 0.9 % (0.1-2.0); Eosinophils # 0.2 K/mm3 (0.0-0.4); Eosinophils % 3.1 % (0.1-12.0); Hematocrit 31.2 % (37.0-47.0); Hemoglobin 9.9 g/dL (12.2-16.2); Lymphocytes # 1.8 K/mm3 (0.7-4.5); Lymphocytes % 33.8 % (10-50); Mean Corpuscular HGB Conc 31.6 g/dL (31.8-35.4); Mean Corpuscular Hemoglobin 28.7 pg (27.0-31.2); Mean Platelet Volume 7.3 fl (7.4-10.4); Monocytes # 0.2 K/mm3 (0.1-1.0); Monocytes % 4.1 % (1.7-9.3); Neutrophils # 3.1 K/mm3 (1.8-7.8); Platelet Count 306 K/mm3 (142-424); Red Blood Count 3.43 M/mm3 (4.20-5.40); White Blood Count 5.4 K/mm3 (4.8-10.8)
[2022-03-19 11:11] LABS: Chloride 106 mmol/L (98-107); Sodium 142 mmol/L (136-145)
[2022-03-19 11:14] LABS: Alanine Aminotransferase 26 U/L (12-78); Albumin/Globulin Ratio 1.3 (1.1-1.8); Alkaline Phosphatase 63 U/L (38-126); Aspartate Amino Transferase 45 U/L (14-36); Blood Urea Nitrogen 21 mg/dl (7-17); Carbon Dioxide 24 mmol/L (22.0-30.0); Estimated Glomerular Filt Rate 44 ml/min (>60); GFR (African American) 54 ML/MIN (>60)
[2022-03-19 11:15] LABS: Bilirubin,Total < 0.1 mg/dl (0.2-1.3); Calcium 9.4 mg/dl (8.4-10.2); Glucose 95 mg/dl (74-100)
--- NOTE | 2022-03-19 12:14 | PC.NURSE ---
Qing MORENO CALLED TO REPORT CRITICAL LAB RESULTS AT 1128 TO RN; K REPORT OF 6.0 RN REPEATED LAB VALUE, PT NAME, AND . RN REPORTED LABS TO Maria R OLEARY MD AND INSTRUCTIONS TO REPORT TO PCP OFFICE. REPORTED TO A JAREK OFFICE AT 1215
== END ==
PROVIDERS: PCP Family Medicine; Visit Provider Internal Medicine Medical Oncology
DX: Z85.3 Personal history of malignant neoplasm of breast (principal)
CPT/HCPCS: 36415; 80053; 85025

== ENCOUNTER → 2022-03-24 10:39 | Outpatient (CLI) | payer MEDICARE, OTHER, SELFPAY | PROVIDERS: PCP Family Medicine; Visit Provider Family Medicine | DX: R30.0 Dysuria (principal); B96.29 Other Escherichia coli [E. coli] as the cause of diseases classified elsewhere | CPT/HCPCS: 87086; 87088; 87186 ==

== ENCOUNTER → 2023-03-10 09:58 | Outpatient (CLI) | payer MEDICARE, OTHER, SELFPAY ==
--- NOTE | 2023-03-10 10:07 | MM_ITS ---
PROCEDURE INFORMATION: Exam: MG Left Screening 3D Mammography Exam date and time: 03/10/2023 9:58 AM Age: 72 years old Clinical indication: Screening examination . History of left breast cancer treated with mastectomy TECHNIQUE: Imaging protocol: Left Screening tomosynthesis and 2D mammography including computer-aided detection (CAD) when performed. COMPARISON: 1. MG MM DIG SCREENING MAMM BI W/CAD 04/18/2020 8:40 AM 2. MG DXBI MM Dig mamm BI DX w/CAD 03/24/2018 9:37 AM FINDINGS: MAMMOGRAPHY: Breast composition: There are scattered areas of fibroglandular density. Mass: None. Architectural distortion: None. Calcifications: No suspicious calcifications. Asymmetric density: None. Skin thickening: None. Axillary adenopathy: None. Other findings: The patient is status post left mastectomy IMPRESSION: No mammographic evidence of malignancy. Annual screening is recommended unless otherwise clinically indicated. ASSESSMENT: BI-RADS Category 1: Negative
== END ==
PROVIDERS: PCP Family Medicine; Visit Provider Internal Medicine Medical Oncology
DX: Z12.31 Encounter for screening mammogram for malignant neoplasm of breast (principal)
CPT/HCPCS: 77063; 77067

== ENCOUNTER → 2023-03-18 09:49 | Outpatient (CLI) | payer MEDICARE, OTHER, SELFPAY ==
[2023-03-18 10:41] LABS: Basophils % 0.5 % (0.1-2.0); Eosinophils # 0.1 K/mm3 (0.0-0.4); Eosinophils % 2.8 % (0.1-12.0); Hematocrit 32.9 % (37.0-47.0); Hemoglobin 10.5 g/dL (12.2-16.2); Lymphocytes # 1.6 K/mm3 (0.7-4.5); Lymphocytes % 34.7 % (10-50); Mean Corpuscular HGB Conc 31.7 g/dL (31.8-35.4); Mean Corpuscular Hemoglobin 27.8 pg (27.0-31.2); Mean Corpuscular Volume 87.6 fl (81-99); Mean Platelet Volume 7.9 fl (7.4-10.4); Monocytes # 0.3 K/mm3 (0.1-1.0); Monocytes % 6.1 % (1.7-9.3); Neutrophils # 2.6 K/mm3 (1.8-7.8); Neutrophils % 55.9 % (37.0-80.0); Platelet Count 295 K/mm3 (142-424); Red Blood Count 3.76 M/mm3 (4.20-5.40); Red Cell Distribution Width 14.8 % (11.5-17.5); White Blood Count 4.7 K/mm3 (4.8-10.8)
[2023-03-18 12:13] LABS: Alanine Aminotransferase 19 U/L (12-78); Albumin Level 3.9 g/dl (3.5-5.0); Albumin/Globulin Ratio 1.1 (1.1-1.8); Alkaline Phosphatase 59 U/L (38-126); Anion Gap 12.8 mEq/L (5-15); Aspartate Amino Transferase 26 U/L (14-36); Bilirubin,Total 0.2 mg/dl (0.2-1.3); Blood Urea Nitrogen 19 mg/dl (7-17); Calcium 9.5 mg/dl (8.4-10.2); Carbon Dioxide 27 mmol/L (22.0-30.0); Chloride 104 mmol/L (98-107); Estimated Glomerular Filt Rate 62 ml/min (>60); GFR (African American) 75 ML/MIN (>60); Globulin 3.4 g/dL (1.3-3.2); Glucose 79 mg/dl (74-100); Potassium 4.8 mmoL/L (3.5-5.1); Sodium 139 mmol/L (136-145); Total Protein,Serum 7.3 g/dl (6.3-8.2)
== END ==
PROVIDERS: PCP Family Medicine; Visit Provider Internal Medicine Medical Oncology
DX: Z85.3 Personal history of malignant neoplasm of breast (principal)
CPT/HCPCS: 36415; 80053; 85025

== ENCOUNTER 2024-03-15 07:23 | Outpatient (CLI) | payer MEDICARE, OTHER, SELFPAY ==
--- NOTE | 2024-03-15 07:33 | MM_ITS ---
PROCEDURE INFORMATION: Exam: MG Right Screening 3D Mammography Exam date and time: 03/15/2024 7:24 AM Age: 73 years old Clinical indication: Screening exam. Personal history of left breast cancer status post mastectomy. TECHNIQUE: Imaging protocol: Right Screening tomosynthesis and 2D mammography including computer-aided detection (CAD) when performed. COMPARISON: 1. MG MM DIG MAMM DX UNILAT RT CAD 03/06/2021 2:35 PM 2. MG MM DIG MAMM DX UNILAT RT CAD 05/07/2020 1:07 PM FINDINGS: MAMMOGRAPHY: Breast composition: There are scattered areas of fibroglandular density. Mass: No suspicious masses. Architectural distortion: None. Calcifications: No suspicious calcifications. Asymmetric density: None. Skin thickening: None. Axillary adenopathy: None. IMPRESSION: No mammographic evidence of malignancy. Annual screening is recommended unless otherwise clinically indicated. ASSESSMENT: BI-RADS Category 1: Negative.
[2024-03-15 07:58] LABS: Basophils # 0.1 K/mm3 (0-0.2); Basophils % 0.9 % (0.1-2.0); Eosinophils # 0.5 K/mm3 (0.0-0.4); Eosinophils % 8.4 % (0.1-12.0); Hematocrit 33.4 % (37.0-47.0); Hemoglobin 10.4 g/dL (12.2-16.2); Lymphocytes # 1.8 K/mm3 (0.7-4.5); Lymphocytes % 30.5 % (10-50); Mean Corpuscular Hemoglobin 28.1 pg (27.0-31.2); Mean Corpuscular Volume 90.7 fl (81-99); Mean Platelet Volume 6.8 fl (7.4-10.4); Monocytes # 0.3 K/mm3 (0.1-1.0); Monocytes % 4.7 % (1.7-9.3); Neutrophils # 3.3 K/mm3 (1.8-7.8); Neutrophils % 55.5 % (37.0-80.0); Platelet Count 347 K/mm3 (142-424); Red Blood Count 3.69 M/mm3 (4.20-5.40); Red Cell Distribution Width 14.7 % (11.5-17.5); White Blood Count 5.9 K/mm3 (4.8-10.8)
[2024-03-15 08:15] LABS: Albumin Level 4.1 g/dl (3.5-5.0); Chloride 101 mmol/L (98-107); Potassium 4.5 mmoL/L (3.5-5.1); Sodium 134 mmol/L (136-145)
[2024-03-15 08:18] LABS: Alanine Aminotransferase 13 U/L (12-78); Albumin/Globulin Ratio 1.5 (1.1-1.8); Alkaline Phosphatase 54 U/L (38-126); Anion Gap 10.5 mEq/L (5-15); Aspartate Amino Transferase 21 U/L (14-36); Bilirubin,Total 0.4 mg/dl (0.2-1.3); Blood Urea Nitrogen 16 mg/dl (7-17); Calcium 10.1 mg/dl (8.4-10.2); Carbon Dioxide 27 mmol/L (22.0-30.0); Estimated Glomerular Filt Rate 71 ml/min (>60); GFR (African American) 85 ML/MIN (>60); Globulin 2.8 g/dL (1.3-3.2); Glucose 79 mg/dl (74-100); Total Protein,Serum 6.9 g/dl (6.3-8.2)
== END 2024-03-15 23:59 | disposition home or self-care (01) ==
LOC: RAD 07:25
PROVIDERS: PCP Family Medicine; Visit Provider Internal Medicine Medical Oncology
DX: D50.9 Iron deficiency anemia, unspecified (principal); Z12.31 Encounter for screening mammogram for malignant neoplasm of breast
CPT/HCPCS: 36415; 77063; 77067; 80053; 85025

== ENCOUNTER 2024-06-26 17:38 | Outpatient (CLI) | payer MEDICARE, SELFPAY ==
[2024-06-26 18:22] LABS: Basophils # 0.1 K/mm3 (0-0.2); Basophils % 0.4 % (0.1-2.0); Eosinophils # 0.1 K/mm3 (0.0-0.4); Eosinophils % 0.5 % (0.1-12.0); Hematocrit 29.6 % (37.0-47.0); Hemoglobin 9.5 g/dL (12.2-16.2); Lymphocytes # 1.5 K/mm3 (0.7-4.5); Lymphocytes % 12.9 % (10-50); Mean Corpuscular HGB Conc 32.1 g/dL (31.8-35.4); Mean Corpuscular Hemoglobin 27.1 pg (27.0-31.2); Mean Corpuscular Volume 84.3 fl (81-99); Mean Platelet Volume 9.6 fl (7.4-10.4); Monocytes # 0.4 K/mm3 (0.1-1.0); Monocytes % 3.3 % (1.7-9.3); Neutrophils # 9.5 K/mm3 (1.8-7.8); Neutrophils % 82.6 % (37.0-80.0); Platelet Count 444 K/mm3 (142-424); Red Blood Count 3.51 M/mm3 (4.20-5.40); Red Cell Distribution Width 14.1 % (11.5-17.5); White Blood Count 11.6 K/mm3 (4.8-10.8)
[2024-06-26 19:24] LABS: Albumin Level 4.2 g/dl (3.5-5.0); Chloride 104 mmol/L (98-107); Sodium 132 mmol/L (136-145)
[2024-06-26 19:26] LABS: Blood Urea Nitrogen 73 mg/dl (7-17); Estimated Glomerular Filt Rate 10 ml/min (>60); GFR (African American) 12 ML/MIN (>60)
[2024-06-26 19:27] LABS: Alanine Aminotransferase 11 U/L (12-78); Albumin/Globulin Ratio 1.3 (1.1-1.8); Alkaline Phosphatase 82 U/L (38-126); Anion Gap 20.5 mEq/L (5-15); Aspartate Amino Transferase 18 U/L (14-36); Bilirubin,Total 0.4 mg/dl (0.2-1.3); Calcium 10.6 mg/dl (8.4-10.2); Carbon Dioxide 16 mmol/L (22.0-30.0); Globulin 3.3 g/dL (1.3-3.2); Glucose 55 mg/dl (74-100); Total Protein,Serum 7.5 g/dl (6.3-8.2)
[2024-06-26 19:38] LABS: 25-OH Vitamin D, Total 33.1 ng/mL (30-100)
[2024-06-26 19:53] LABS: Potassium 8.5 mmoL/L (3.5-5.1)
[2024-06-26 19:57] LABS: Thyroid Stimulating Hormone 0.87 uIU/mL (0.465-4.68)
[2024-06-26 20:05] LABS: HIV Combo NEGATIVE (Negative)
[2024-06-26 20:15] LABS: Hepatitis C Ab Qual. W/ RFX NEGATIVE (Negative)
[2024-06-26 21:30] LABS: Hemoglobin A1C 4.9 % (4.0-6.0)
== END 2024-06-26 23:59 | disposition home or self-care (01) ==
LOC: LAB.DROPOF 17:40
PROVIDERS: PCP Family Medicine; Visit Provider Family Medicine
DX: E11.9 Type 2 diabetes mellitus without complications (principal); I10 Essential (primary) hypertension; E55.9 Vitamin D deficiency, unspecified; Z11.4 Encounter for screening for human immunodeficiency virus [HIV]; R53.83 Other fatigue; Z11.59 Encounter for screening for other viral diseases; R42 Dizziness and giddiness
CPT/HCPCS: 80053; 82306; 83036; 84443; 85025; 86803; 87389

== ENCOUNTER 2024-06-26 21:28 | Inpatient (IN) | payer MEDICARE, SELFPAY ==
--- NOTE | 2024-06-26 21:25 | ECG_ITS ---
APPROVED REPORT Exam: Resting ECG HR:95 bpm ECG Measurements Heart Rate 95 AXES FL 92 P 189 QRSd 92 QRS -11 QT 331 T 42 QTc 383 Conclusion SINUS RHYTHM WITH SHORT FL INTERVAL POSSIBLE ANTERIOR MYOCARDIAL INFARCTION , OF INDETERMINATE AGE [30 ms Q WAVE IN V3/V4, OR R < 0.2 mV IN V4] ABNORMAL ECG UNCONFIRMED REPORT Electronically signed by : CHRISTIE POWERS, 06/26/2024 23:03:07
--- NOTE | 2024-06-26 21:29 | ED_ITS ---
Discharge Plan Disposition Patient Disposition: Admitted Condition: Fair Prescriptions Prescriptions: No Action anastrozole 1 mg tablet 1 mg PO DAILY aspirin [Adult Low Dose Aspirin] 81 mg tablet,delayed release (DR/EC) 81 mg PO DAILY cephalexin 500 mg capsule 500 mg PO BID Qty: 20 0RF codeine-guaifenesin 10-100 mg/5 mL liquid 10 ml PO Q4-6H PRN (Reason: cough) Qty: 120 1RF famotidine [Pepcid] 20 mg tablet 20 mg PO BID Qty: 60 2RF mirtazapine 7.5 mg tablet 7.5 mg PO HS Qty: 14 0RF allopurinol 100 mg tablet 100 mg PO DAILY 90 Days Qty: 90 2RF (DME) lancets-blood glucose strips 30 gauge combo pack See Rx Instructions .Route Qty: 100 2RF Rx Instructions: Pt is to test BID prn (DME) blood-glucose meter Misc See Rx Instructions .Route Qty: 1 0RF Rx Instructions: Pt is to test once a day (DME) lancets [Accu-Chek Softclix Lancets] Misc See Rx Instructions .Route Qty: 100 6RF Rx Instructions: Pt is to test once a day (DME) Accu-Chek Guide test strips Strip See Rx Instructions .Route Qty: 100 6RF Rx Instructions: Pt is to test once a day lisinopril 20 mg tablet 20 mg PO DAILY 90 Days Qty: 90 3RF levothyroxine 50 mcg tablet 50 mcg PO DAILY 90 Days Qty: 90 3RF gabapentin 800 mg tablet 800 mg PO QID Qty: 120 2RF (DME) Blood Glucose Test Strip See Rx Instructions .ROUTE .MEDSUPPLY Qty: 100 3RF Rx Instructions: BID prn E11.9 (DME) blood-glucose meter [Blood Glucose Monitoring] Kit See Rx Instructions .ROUTE .MEDSUPPLY Qty: 1 0RF Rx Instructions: Pt is to test BID PRN E11.9 diclofenac sodium 75 mg tablet,delayed release (DR/EC) 75 mg PO BID 90 Days Qty: 180 0RF Clinical Impressions Clinical Impression: Acute renal failure, Acute hyperkalemia, Anorexia, Shock circulatory Print Language Print Language: Mongolian Discharge ED Provider: Mahad Mcclain General Adult HPI <HOMERO Roy - Last Filed: 06/26/24 22:17> General Chief complaint: Weakness Stated complaint: abnormal labs Time Seen by Provider: 06/26/24 21:29 History of Present Illness HPI narrative: Patient presents for significantly abnormal laboratory work. Patient saw her PCP today for a several month history of general malaise. Patient has a history of ER positive HER2 negative breast cancer and follows with Dr. Amaya. She has been initiated on Arimidex for a planned 10-year span. She also reportedly at some point weighed around 300 pounds however today she weighed 122 pounds. Some medication changes were made including stopping Ambien Maxide metformin amitriptyline. Patient is also had significant social stressors including a with dementia that ultimately required him being placed in a skilled nursing and also led to necessitating a divorce for what sounds like financial reasons although I am not exactly clear. This is all occurred in the last year. Patient's laboratory work from earlier today showed a white count of 11.6 hemoglobin hematocrit of 9.5 and 29.6 MCHC of 32.1 platelet count of 444 absolute neutrophil count 9.5 CMP showed a sodium of 132 potassium of 8.5 CO2 of 16 gap of 20.5 BUN of 73 creatinine of 4.4 GFR of 10 a glucose of 55 calcium of 10.6 TSH was 0.87. Her PCP notified the patient's daughter and subsequently EMS called to bring her here. Patient currently denies chest pain fever chills hemoptysis hematochezia melena nausea vomiting diarrhea. Related Data Home Medications ?Medication ?Instructions ?Recorded ?Confirmed anastrozole 1 mg tablet 1 mg PO DAILY chemo 11/03/18 06/26/24 aspirin 81 mg tablet,delayed 81 mg PO DAILY heart. 11/03/18 06/26/24 release (Adult Low Dose Aspirin) Previous Rx's ?Medication ?Instructions ?Recorded lancets 30 gauge and blood glucose #100 ea 03/25/22 strips combo pack blood-glucose meter #1 ea 04/01/22 lancets (Accu-Chek Softclix #100 ea 05/28/22 Lancets) blood sugar diagnostic (Accu-Chek #100 ea 07/26/23 Guide test strips) allopurinol 100 mg tablet 100 mg PO DAILY gout 90 days #90 08/04/23 tabs levothyroxine 50 mcg tablet 50 mcg PO DAILY Thyroid 90 days 12/11/23 #90 tabs lisinopril 20 mg tablet 20 mg PO DAILY Hypertension 90 12/11/23 days #90 tabs gabapentin 800 mg tablet 800 mg PO QID neuropathy #120 tabs 04/03/24 blood sugar diagnostic (Blood #100 ea 04/12/24 Glucose Test strips) blood-glucose meter (Blood Glucose #1 ea 04/12/24 Monitoring kit) cephalexin 500 mg capsule 500 mg PO BID #20 caps 04/19/24 codeine 10 mg-guaifenesin 100 mg/5 10 ml PO Q4-6H PRN cough #120 mL 04/19/24 mL oral liquid diclofenac sodium 75 mg 75 mg PO BID Pain 90 days #180 tabs 06/15/24 tablet,delayed release famotidine 20 mg tablet (Pepcid) 20 mg PO BID stomach #60 tabs 06/26/24 mirtazapine 7.5 mg tablet 7.5 mg PO HS sleep #14 tabs 06/26/24 Allergies Allergy/AdvReac Type Severity Reaction Status Date / Time No Known Allergies Allergy Verified 04/19/24 10:24 [facility] <HOMERO Roy - Last Filed: 06/26/24 22:17> [facility] Disclaimer: The information contained in this section may have been updated after the patient was seen, as this information can be updated by other users. 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 current occupational exposures/hazards: No caffeine: Yes Have you lived/traveled outside [place] in past 30 days?: No Contact w/someone who lives/traveled outside US past 30 days?: No Exposure to someone with infectious disease in past 14 days?: No Do you have a fever (greater than 100.4 F or 38 C)?: No Have you tested positive for COVID-19: No Exposed to someone with COVID-19 in past 14 days?: No Do you have a sore throat?: No Do you have a cough?: No Do you have any weakness?: No Do you have any diarrhea?: No Are you experiencing any unusual bleeding?: No Do you have any muscle aches/pain?: No Do you have any abdominal pain?: No Are you experiencing loss of taste or smell?: No Other Medical History Have you received the Flu Vaccine for this season: Yes Have you received the Pneumonia Vaccine: No <HOMERO Roy - Last Filed: 06/26/24 22:17> ROS Obtained: Yes Systems reviewed as appropriate & no additional complaints except as documented Physical Exam <HOMERO Roy - Last Filed: 06/26/24 22:17> General General appearance: alert and in no apparent distress Respiratory Respiratory exam: Present normal lung sounds bilaterally Cardiovascular Cardiovascular exam: Present regular rate Neurological Exam Neurological exam: Present alert and oriented X3 Medical Decision Making <HOMERO Roy - Last Filed: 06/26/24 22:17> Medical Records Medical records reviewed: Yes I reviewed the patient's medical records. Screening: Per USPSTF and CDC recommendations, given the prevalence of disease in our region, it is our hospital?s policy to screen for HIV and viral Hepatitis for all patients aged 18 and over and those with ongoing risk factors. Jaiden Inquiry Pt receiving controlled substance: No Vital Signs: 06/26/24 21:38 06/26/24 22:30 06/26/24 22:59 Temperature 98.5 F Temperature Source Oral Pulse Rate Pulse Rate [Left Radial] 107 H Respiratory Rate 14 13 17 Blood Pressure 118/57 L 106/64 L Blood Pressure [Right Arm] 119/57 L Blood Pressure Mean Blood Pressure Mean [Right Arm] 77 Blood Pressure Source [Right Arm] Automatic Cuff Blood Pressure Position [Right Arm] Supine 02 Sat by Pulse Oximetry 94 L Oxygen Delivery Method Room Air 06/26/24 23:00 06/26/24 23:30 06/27/24 00:00 Temperature Temperature Source Pulse Rate 109 H Pulse Rate [Left Radial] Respiratory Rate 15 15 Blood Pressure 111/57 L 93/60 L Blood Pressure [Right Arm] Blood Pressure Mean 67 Blood Pressure Mean [Right Arm] Blood Pressure Source [Right Arm] Blood Pressure Position [Right Arm] 02 Sat by Pulse Oximetry 100 Oxygen Delivery Method 06/27/24 00:15 06/27/24 00:30 06/27/24 00:58 Temperature Temperature Source Pulse Rate 120 H 125 H Pulse Rate [Left Radial] Respiratory Rate 15 Blood Pressure 98/45 L 96/42 L 99/43 L Blood Pressure [Right Arm] Blood Pressure Mean 62 59 61 Blood Pressure Mean [Right Arm] Blood Pressure Source [Right Arm] Blood Pressure Position [Right Arm] 02 Sat by Pulse Oximetry 99 99 Oxygen Delivery Method Room Air Room Air 06/27/24 01:00 06/27/24 01:10 06/27/24 01:17 Temperature Temperature Source Pulse Rate 125 H 125 H Pulse Rate [Left Radial] Respiratory Rate 14 14 Blood Pressure 94/44 L 97/41 L 102/46 L Blood Pressure [Right Arm] Blood Pressure Mean 63 56 62 Blood Pressure Mean [Right Arm] Blood Pressure Source [Right Arm] Blood Pressure Position [Right Arm] 02 Sat by Pulse Oximetry 98 98 Oxygen Delivery Method Room Air Room Air 06/27/24 01:18 06/27/24 01:20 06/27/24 01:50 Temperature Temperature Source Pulse Rate Pulse Rate [Left Radial] Respiratory Rate Blood Pressure 101/42 L 96/44 L 96/41 L Blood Pressure [Right Arm] Blood Pressure Mean 62 57 59 Blood Pressure Mean [Right Arm] Blood Pressure Source [Right Arm] Blood Pressure Position [Right Arm] 02 Sat by Pulse Oximetry Oxygen Delivery Method 06/27/24 02:05 Temperature Temperature Source Pulse Rate Pulse Rate [Left Radial] Respiratory Rate Blood Pressure 102/39 L Blood Pressure [Right Arm] Blood Pressure Mean 65 Blood Pressure Mean [Right Arm] Blood Pressure Source [Right Arm] Blood Pressure Position [Right Arm] 02 Sat by Pulse Oximetry Oxygen Delivery Method Lab Data Lab results reviewed: Yes I reviewed the patient's lab results. Lab Results 06/26/24 15:55: HCV Ab DEVIKA w/Rflx PCR Qn Negative, HIV Ag/Ab Combo Qual Negative 06/26/24 21:28: VBG pH 7.43 H, VBG pCO2 21.8 L, VBG pO2 179.4 H, VBG HCO3 14.0 L , VBG Total CO2 14.7 L, VBG O2 Saturation 99.1 H, VBG Base Excess -10.3 L, VBG Lactic Acid 2.4 H 06/26/24 21:35: WBC 11.7 H, RBC 3.72 L, Hgb 9.8 L, Hct 31.0 L, MCV 83.3, MCH 26.3 L, MCHC 31.6 L, RDW 14.0, Plt Count 424, MPV 8.9, Neut % (Auto) 72.2, Lymph % (Auto) 21.2, Frontier % (Auto) 4.6, Eos % (Auto) 1.0, Baso % (Auto) 0.6, Neut # (Auto) 8.4 H, Lymph # (Auto) 2.5, Frontier # (Auto) 0.5, Eos # (Auto) 0.1, Baso # (Auto) 0.1, Sodium 133 L, Potassium 7.1 H*, Chloride 106, Carbon Dioxide 15 L, A nion Gap 19.1 H, BUN 72 H, Creatinine 4.50 H, Estimated Creat Clear 10, E stimated GFR 10 L*, Est GFR ( Amer) 12 L*, Glucose 42 L* D, Hemoglobin A1c 4.9, Calcium 10.5 H, Phosphorus 5.3 H, Magnesium 1.7, Total Bilirubin 0.4, AST 19, ALT 12, Alkaline Phosphatase 80, Troponin I < 0.01, Total Protein 7.9, Albumin 4.2, Globulin 3.7 H, Albumin/Globulin Ratio 1.1, Lipase 293, TSH 1.03, Thyroxine (T4) 8.8 06/26/24 22:30: Lactate 1.3 06/26/24 23:35: Urine Color Yellow, Urine Appearance Clear, Urine pH 5.5, Ur Specific [place] >= 1.030, Urine Protein Negative, Urine Glucose (UA) Negative, Urine Ketones Trace, Urine Blood Negative, Urine Nitrate Negative, Urine Bilirubin Negative, Urine Urobilinogen 0.2, Ur Leukocyte Esterase Negative, Urine RBC 3-5, Urine WBC 5-10, Ur Squamous Epith Cells 5-10, Amorphous Sediment 2+, Urine Bacteria 1+, Urine Mucus 1+ 06/27/24 01:19: Sodium 130 L, Potassium 4.7 D, Chloride 107, Carbon Dioxide 16 L, Anion Gap 11.7, BUN 62 H, Creatinine 3.50 H D, Estimated Creat Clear 13, E stimated GFR 13 L*, Est GFR ( Amer) 15 L* D, Glucose 153 H D, Calcium 9.6, Troponin I < 0.01 06/26/24 21:35 06/27/24 01:19 Orders (Tests/Meds): ED MEDICATIONS Generic Name Dose Route Start Last Admin Trade Name Dexter PRN Reason Stop Dose Admin Dextrose/Water 500 mls @ 25 mls/hr 06/26/24 21:45 06/26/24 21:50 Dextrose 10% In Water 500ml IV 07/26/24 21:44 25 mls/hr .Q20H RORO Administration Sodium Bicarbonate 150 meq/ 1,150 mls @ 100 mls/hr 06/26/24 21:45 06/27/24 01:03 Dextrose IV 07/26/24 21:44 Not Given .[id number] RORO Sodium Chloride 1,000 mls @ 999 mls/hr 06/27/24 01:45 06/27/24 01:42 Sod Chlor 0.9% 1000ml Bag IV 06/27/24 02:45 999 mls/hr .Q1H1M RORO Administration Norepinephrine/Dextrose 8 mg in 250 mls @ 15 mls/hr 06/27/24 02:15 06/27/24 02:03 Levophed 8mg/250ml-D5w Premix IV 07/27/24 02:14 8 mcg/min .[id number] RORO 15 mls/hr Administration Protocol 8 MCG/MIN Discontinued Medications Generic Name Dose Route Start Last Admin Trade Name Dexter PRN Reason Stop Dose Admin Albuterol Sulfate 20 mg 06/26/24 21:37 06/26/24 23:53 Albuterol 0.083% 2.5 Mg/3 Ml [facility] 06/26/24 21:38 20 mg ONCE ONE Administration Albuterol/Ipratropium 3 ml 06/26/24 21:36 Ipratropium/Albuterol 3 Ml [facility] 06/26/24 21:37 ONCE ONE Albuterol/Ipratropium 20 ml 06/26/24 21:36 Ipratropium/Albuterol 3 Ml [facility] 06/26/24 21:37 ONCE ONE Dextrose 50 ml 06/26/24 21:36 01/13/25 21:50 Dextrose 50% 50ml Syringe (Crash Cart) IVP 06/26/24 21:37 50 ml ONCE ONE Administration Dextrose 50 ml 06/26/24 23:33 06/27/24 00:00 Dextrose 50% 50ml Syringe (Crash Cart) IVP 06/26/24 23:34 50 ml ONCE ONE Administration Lactated Ringer's 1,000 mls @ 999 mls/hr 06/26/24 21:28 06/26/24 21:51 Lactated Ringer's 1000 Ml Bag IV 06/26/24 22:28 999 mls/hr .Q1H1M ONE Administration Calcium Gluconate/Sodium Chloride 2 gm in 100 mls @ 50 mls/hr 06/26/24 21:29 06/27/24 00:00 Calcium Gluconate 2,000mg/100ml Nacl Premix IV 06/26/24 23:28 50 mls/hr ONCE ONE Administration Thiamine HCl 100 mg/ Sodium 51 mls @ 204 mls/hr 06/26/24 21:39 06/26/24 22:15 Chloride IV 06/26/24 21:40 204 mls/hr ONCE ONE Administration Lactated Ringer's 1,000 mls @ 999 mls/hr 06/27/24 00:37 06/27/24 00:40 Lactated Ringer's 1000 Ml Bag IV 06/27/24 01:37 999 mls/hr .Q1H1M ONE Administration Ceftriaxone Sodium 1 gm/ 50 mls @ 100 mls/hr 06/27/24 01:32 06/27/24 01:40 Sodium Chloride IV 06/27/24 02:01 Not Given ONCE ONE Ceftriaxone Sodium 2 gm/ 100 mls @ 200 mls/hr 06/27/24 01:39 06/27/24 01:43 Sodium Chloride IV 06/27/24 02:08 200 mls/hr ONCE ONE Administration Norepinephrine Bitartrate 8 mg 258 mls @ 15.48 mls/hr 06/27/24 01:40 / Sodium Chloride IV 07/27/24 01:39 .[id number] RORO Protocol 8 MCG/MIN Insulin Human Regular 5 unit 06/26/24 23:33 06/26/24 23:54 Insulin Human Regular 100 Units/Ml 10ml Vial IV 06/26/24 23:34 5 unit ONCE ONE Administration Sodium Zirconium Cyclosilicate 10 gm 06/26/24 21:36 06/26/24 22:16 Lokelma 5gm Packet PO 06/26/24 21:37 10 gm ONCE ONE Administration ORDERS Category Date Time Status CT abdomen pelvis wo con Stat Cat Scan 06/26/24 21:[address] chest wo con Stat Cat Scan 06/26/24 21:30 Completed CXR --portable [XR chest portable] Stat Exams 06/27/24 02:27 Ordered BMP [Basic Metabolic Panel] Stat Lab 06/27/24 01:19 Completed Complete Blood Count Auto Diff Stat Lab 06/26/24 21:35 Completed Comprehensive Metabolic Panel Stat Lab 06/26/24 21:35 Completed HIV Combo Stat Lab 06/26/24 15:55 Completed Hemoglobin A1C Stat Lab 06/26/24 21:35 Completed Hepatitis C Ab Qual. W/ RFX Stat Lab 06/26/24 15:55 Completed Lactic Acid Stat Lab 06/26/24 22:30 Completed Lactic Acid Stat Lab 06/27/24 02:20 Received Lipase Stat Lab 06/26/24 21:35 Completed MAG [Magnesium] Stat Lab 06/26/24 21:35 Completed PHOS [Phosphorous] Stat Lab 06/26/24 21:35 Completed T4 (Thyroxine) Stat Lab 06/26/24 21:35 Completed TSH [Thyroid Stimulating Hormone] Stat Lab 06/26/24 21:35 Completed Trop I [Troponin I] Stat Lab 06/26/24 21:35 Completed Troponin I Q3H Lab 06/27/24 01:19 Completed Troponin I Q3H Lab 06/27/24 03:45 Ordered UA [Urinalysis and Microscopic] Stat Lab 06/26/24 23:35 Completed Blood Culture Stat Micro 06/27/24 01:19 Received Urine Culture Stat Micro 06/26/24 23:35 Received VBG [Venous Blood Gas] Stat RT 06/26/24 21:28 Completed VBG [Venous Blood Gas] Stat RT 06/27/24 01:59 Ordered EKG Request [ECG Request] Stat Y 06/27/24 01:58 Ordered Medical Decision Narrative: In summary patient is a 74-year-old female who presents to the emergency department for evaluation of multiple abnormal labs but primarily acute renal failure derived. Patient is initially hemodynamically stable with a blood pressure 119/57 pulse 107 respiratory rate is 14 O2 sats 94% on room air upon arrival, afebrile. Physical exam shows a well-developed apparently well- nourished 74-year-old female who does not appear to be acute distress. Breath sounds are critical bilaterally to the bases without adventitious sounds. Patient has no dependent edema noted. Patient has no abdominal tenderness on palpation. Patient has sinus tachycardia on the bedside monitor. Differential diagnosis includes acute renal failure versus therapeutic misadventure versus occult infection versus obstructive uropathy etc. Initial workup will be conducted with hematologic labs CT scan abdomen pelvis urinalysis CT scan of the chest without contrast VBG. Initial interventions include as patient is hypoglycemic for now we will hold on insulin and utilize other potassium lowering mechanism including nebulizer treatment as well as calcium. Patient will be started on a D10 drip along with a crystalloid bolus. Patient will be on continuous cardiac monitoring and pulse oximetry. Initial workup ordered and pending at the time of handoff to Dr. Cardona at 2200 hrs. <Katelyn Cardona, DO - Last Filed: 06/26/24 23:38> Vital Signs: 06/26/24 21:38 06/26/24 22:30 06/26/24 22:59 Temperature 98.5 F Temperature Source Oral Pulse Rate Pulse Rate [Left Radial] 107 H Respiratory Rate 14 13 17 Blood Pressure 118/57 L 106/64 L Blood Pressure [Right Arm] 119/57 L Blood Pressure Mean Blood Pressure Mean [Right Arm] 77 Blood Pressure Source [Right Arm] Automatic Cuff Blood Pressure Position [Right Arm] Supine 02 Sat by Pulse Oximetry 94 L Oxygen Delivery Method Room Air 06/26/24 23:00 06/26/24 23:30 06/27/24 00:00 Temperature Temperature Source Pulse Rate 109 H Pulse Rate [Left Radial] Respiratory Rate 15 15 Blood Pressure 111/57 L 93/60 L Blood Pressure [Right Arm] Blood Pressure Mean 67 Blood Pressure Mean [Right Arm] Blood Pressure Source [Right Arm] Blood Pressure Position [Right Arm] 02 Sat by Pulse Oximetry 100 Oxygen Delivery Method 06/27/24 00:15 06/27/24 00:30 06/27/24 00:58 Temperature Temperature Source Pulse Rate 120 H 125 H Pulse Rate [Left Radial] Respiratory Rate 15 Blood Pressure 98/45 L 96/42 L 99/43 L Blood Pressure [Right Arm] Blood Pressure Mean 62 59 61 Blood Pressure Mean [Right Arm] Blood Pressure Source [Right Arm] Blood Pressure Position [Right Arm] 02 Sat by Pulse Oximetry 99 99 Oxygen Delivery Method Room Air Room Air 06/27/24 01:00 06/27/24 01:10 06/27/24 01:17 Temperature Temperature Source Pulse Rate 125 H 125 H Pulse Rate [Left Radial] Respiratory Rate 14 14 Blood Pressure 94/44 L 97/41 L 102/46 L Blood Pressure [Right Arm] Blood Pressure Mean 63 56 62 Blood Pressure Mean [Right Arm] Blood Pressure Source [Right Arm] Blood Pressure Position [Right Arm] 02 Sat by Pulse Oximetry 98 98 Oxygen Delivery Method Room Air Room Air 06/27/24 01:18 06/27/24 01:20 06/27/24 01:50 Temperature Temperature Source Pulse Rate Pulse Rate [Left Radial] Respiratory Rate Blood Pressure 101/42 L 96/44 L 96/41 L Blood Pressure [Right Arm] Blood Pressure Mean 62 57 59 Blood Pressure Mean [Right Arm] Blood Pressure Source [Right Arm] Blood Pressure Position [Right Arm] 02 Sat by Pulse Oximetry Oxygen Delivery Method 06/27/24 02:05 Temperature Temperature Source Pulse Rate Pulse Rate [Left Radial] Respiratory Rate Blood Pressure 102/39 L Blood Pressure [Right Arm] Blood Pressure Mean 65 Blood Pressure Mean [Right Arm] Blood Pressure Source [Right Arm] Blood Pressure Position [Right Arm] 02 Sat by Pulse Oximetry Oxygen Delivery Method Lab Data Lab Results 06/26/24 15:55: HCV Ab DEVIKA w/Rflx PCR Qn Negative, HIV Ag/Ab Combo Qual Negative 06/26/24 21:28: VBG pH 7.43 H, VBG pCO2 21.8 L, VBG pO2 179.4 H, VBG HCO3 14.0 L , VBG Total CO2 14.7 L, VBG O2 Saturation 99.1 H, VBG Base Excess -10.3 L, VBG Lactic Acid 2.4 H 06/26/24 21:35: WBC 11.7 H, RBC 3.72 L, Hgb 9.8 L, Hct 31.0 L, MCV 83.3, MCH 26.3 L, MCHC 31.6 L, RDW 14.0, Plt Count 424, MPV 8.9, Neut % (Auto) 72.2, Lymph % (Auto) 21.2, [place] % (Auto) 4.6, Eos % (Auto) 1.0, Baso % (Auto) 0.6, Neut # (Auto) 8.4 H, Lymph # (Auto) 2.5, [place] # (Auto) 0.5, Eos # (Auto) 0.1, Baso # (Auto) 0.1, Sodium 133 L, Potassium 7.1 H*, Chloride 106, Carbon Dioxide 15 L, A nion Gap 19.1 H, BUN 72 H, Creatinine 4.50 H, Estimated Creat Clear 10, E stimated GFR 10 L*, Est GFR ( Amer) 12 L*, Glucose 42 L* D, Hemoglobin A1c 4.9, Calcium 10.5 H, Phosphorus 5.3 H, Magnesium 1.7, Total Bilirubin 0.4, AST 19, ALT 12, Alkaline Phosphatase 80, Troponin I < 0.01, Total Protein 7.9, Albumin 4.2, Globulin 3.7 H, Albumin/Globulin Ratio 1.1, Lipase 293, TSH 1.03, Thyroxine (T4) 8.8 06/26/24 22:30: Lactate 1.3 06/26/24 23:35: Urine Color Yellow, Urine Appearance Clear, Urine pH 5.5, Ur Specific [place] >= 1.030, Urine Protein Negative, Urine Glucose (UA) Negative, Urine Ketones Trace, Urine Blood Negative, Urine Nitrate Negative, Urine Bilirubin Negative, Urine Urobilinogen 0.2, Ur Leukocyte Esterase Negative, Urine RBC 3-5, Urine WBC 5-10, Ur Squamous Epith Cells 5-10, Amorphous Sediment 2+, Urine Bacteria 1+, Urine Mucus 1+ 06/27/24 01:19: Sodium 130 L, Potassium 4.7 D, Chloride 107, Carbon Dioxide 16 L, Anion Gap 11.7, BUN 62 H, Creatinine 3.50 H D, Estimated Creat Clear 13, E stimated GFR 13 L*, Est GFR ( Amer) 15 L* D, Glucose 153 H D, Calcium 9.6, Troponin I < 0.01 Orders (Tests/Meds): ED MEDICATIONS Generic Name Dose Route Start Last Admin Trade Name Freq PRN Reason Stop Dose Admin Dextrose/Water 500 mls @ 25 mls/hr 06/26/24 21:45 06/26/24 21:50 Dextrose 10% In Water 500ml IV 07/26/24 21:44 25 mls/hr .Q20H RORO Administration Sodium Bicarbonate 150 meq/ 1,150 mls @ 100 mls/hr 06/26/24 21:45 06/27/24 01:03 Dextrose IV 07/26/24 21:44 Not Given .[id number] RORO Sodium Chloride 1,000 mls @ 999 mls/hr 06/27/24 01:45 06/27/24 01:42 Sod Chlor 0.9% 1000ml Bag IV 06/27/24 02:45 999 mls/hr .Q1H1M RORO Administration Norepinephrine/Dextrose 8 mg in 250 mls @ 15 mls/hr 06/27/24 02:15 06/27/24 02:03 Levophed 8mg/250ml-D5w Premix IV 07/27/24 02:14 8 mcg/min .[id number] RORO 15 mls/hr Administration Protocol 8 MCG/MIN Discontinued Medications Generic Name Dose Route Start Last Admin Trade Name Freq PRN Reason Stop Dose Admin Albuterol Sulfate 20 mg 06/26/24 21:37 06/26/24 23:53 Albuterol 0.083% 2.5 Mg/3 Ml Neb 06/26/24 21:38 20 mg ONCE ONE Administration Albuterol/Ipratropium 3 ml 06/26/24 21:36 Ipratropium/Albuterol 3 Ml [facility] 06/26/24 21:37 ONCE ONE Albuterol/Ipratropium 20 ml 06/26/24 21:36 Ipratropium/Albuterol 3 Ml [facility] 06/26/24 21:37 ONCE ONE Dextrose 50 ml 06/26/24 21:36 06/26/24 21:50 Dextrose 50% 50ml Syringe (Crash Cart) IVP 06/26/24 21:37 50 ml ONCE ONE Administration Dextrose 50 ml 06/26/24 23:33 06/27/24 00:00 Dextrose 50% 50ml Syringe (Crash Cart) IVP 06/26/24 23:34 50 ml ONCE ONE Administration Lactated Ringer's 1,000 mls @ 999 mls/hr 06/26/24 21:28 06/26/24 21:51 Lactated Ringer's 1000 Ml Bag IV 06/26/24 22:28 999 mls/hr .Q1H1M ONE Administration Calcium Gluconate/Sodium Chloride 2 gm in 100 mls @ 50 mls/hr 06/26/24 21:29 06/27/24 00:00 Calcium Gluconate 2,000mg/100ml Nacl Premix IV 06/26/24 23:28 50 mls/hr ONCE ONE Administration Thiamine HCl 100 mg/ Sodium 51 mls @ 204 mls/hr 06/26/24 21:39 06/26/24 22:15 Chloride IV 06/26/24 21:40 204 mls/hr ONCE ONE Administration Lactated Ringer's 1,000 mls @ 999 mls/hr 06/27/24 00:37 06/27/24 00:40 Lactated Ringer's 1000 Ml Bag IV 06/27/24 01:37 999 mls/hr .Q1H1M ONE Administration Ceftriaxone Sodium 1 gm/ 50 mls @ 100 mls/hr 06/27/24 01:32 06/27/24 01:40 Sodium Chloride IV 06/27/24 02:01 Not Given ONCE ONE Ceftriaxone Sodium 2 gm/ 100 mls @ 200 mls/hr 06/27/24 01:39 06/27/24 01:43 Sodium Chloride IV 06/27/24 02:08 200 mls/hr ONCE ONE Administration Norepinephrine Bitartrate 8 mg 258 mls @ 15.48 mls/hr 06/27/24 01:40 / Sodium Chloride IV 07/27/24 01:39 .[id number] RORO Protocol 8 MCG/MIN Insulin Human Regular 5 unit 06/26/24 23:33 06/26/24 23:54 Insulin Human Regular 100 Units/Ml 10ml Vial IV 06/26/24 23:34 5 unit ONCE ONE Administration Sodium Zirconium Cyclosilicate 10 gm 06/26/24 21:36 06/26/24 22:16 Lokelma 5gm Packet PO 06/26/24 21:37 10 gm ONCE ONE Administration ORDERS Category Date Time Status CT abdomen pelvis wo con Stat Cat Scan 06/26/24 21:[address] chest wo con Stat Cat Scan 06/26/24 21:30 Completed CXR --portable [XR chest portable] Stat Exams 06/27/24 02:27 Ordered BMP [Basic Metabolic Panel] Stat Lab 06/27/24 01:19 Completed Complete Blood Count Auto Diff Stat Lab 06/26/24 21:35 Completed Comprehensive Metabolic Panel Stat Lab 06/26/24 21:35 Completed HIV Combo Stat Lab 06/26/24 15:55 Completed Hemoglobin A1C Stat Lab 06/26/24 21:35 Completed Hepatitis C Ab Qual. W/ RFX Stat Lab 06/26/24 15:55 Completed Lactic Acid Stat Lab 06/26/24 22:30 Completed Lactic Acid Stat Lab 06/27/24 02:20 Received Lipase Stat Lab 06/26/24 21:35 Completed MAG [Magnesium] Stat Lab 06/26/24 21:35 Completed PHOS [Phosphorous] Stat Lab 06/26/24 21:35 Completed T4 (Thyroxine) Stat Lab 06/26/24 21:35 Completed TSH [Thyroid Stimulating Hormone] Stat Lab 06/26/24 21:35 Completed Trop I [Troponin I] Stat Lab 06/26/24 21:35 Completed Troponin I Q3H Lab 06/27/24 01:19 Completed Troponin I Q3H Lab 06/27/24 03:45 Ordered UA [Urinalysis and Microscopic] Stat Lab 06/26/24 23:35 Completed Blood Culture Stat Micro 06/27/24 01:19 Received Urine Culture Stat Micro 06/26/24 23:35 Received VBG [Venous Blood Gas] Stat RT 06/26/24 21:28 Completed VBG [Venous Blood Gas] Stat RT 06/27/24 01:59 Ordered EKG Request [ECG Request] Stat Y 06/27/24 01:58 Ordered ECG Data Tracing #1: I reviewed this ECG and interpreted as documented below: Normal sinus rhythm with a ventricular rate of 95 bpm. First-degree AV block with prolonged SD interval. No acute STEMI. Nonspecific ST/T wave changes, likely related to hyperkalemia. ECG initial impression date: 06/26/24 ECG initial impression time: 21:27 Medical Decision Narrative: In summary patient is a 74-year-old female who presents to the emergency department for evaluation of multiple abnormal labs but primarily acute renal failure derived. Patient is initially hemodynamically stable with a blood pressure 119/57 pulse 107 respiratory rate is 14 O2 sats 94% on room air upon arrival, afebrile. Physical exam shows a well-developed apparently well- nourished 74-year-old female who does not appear to be acute distress. Breath sounds are critical bilaterally to the bases without adventitious sounds. Patient has no dependent edema noted. Patient has no abdominal tenderness on palpation. Patient has sinus tachycardia on the bedside monitor. Differential diagnosis includes acute renal failure versus therapeutic misadventure versus occult infection versus obstructive uropathy etc. Initial workup will be conducted with hematologic labs CT scan abdomen pelvis urinalysis CT scan of the chest without contrast VBG. Initial interventions include as patient is hypoglycemic for now we will hold on insulin and utilize other potassium lowering mechanism including nebulizer treatment as well as calcium. Patient will be started on a D10 drip along with a crystalloid bolus. Patient will be on continuous cardiac monitoring and pulse oximetry. Initial workup ordered and pending at the time of handoff to Dr. Cardona at 2200 hrs. Brendan DO: I was consulted by the JONO, and we discussed the complexity of the problems being addressed. I approved the treatment and management plan for this patient's care in the emergency department, thus performing a substantive portion of the medical decision making. Patient arrives critically ill in the setting of acute renal failure with hyperkalemia and EKG changes. She is hemodynamically stable. She states she is not been eating or drinking anything for quite some time and has had unintentional weight loss, initially starting out over 300 pounds but now weighing 56 kg here. She looks very dry. She states that she has been making urine though not as much as usual because she has not been drinking at all. She also has been continue to take her medications as prescribed despite not eating and drinking as well as despite her unintentional weight loss. She arrives hypoglycemic. She was given D50 push initially and started on a D10 infusion, as I would like to ideally give her insulin to help shift potassium intracellularly. I also ordered continuous albuterol nebulizer treatment. Calcium gluconate was ordered for cardiac membrane stabilization. She was given a liter bolus of IV fluids. CT scan of the chest, abdomen, and pelvis without IV contrast were ordered given acute renal failure in setting of malignancy as well as some chest discomfort. Ultimately, I had a very extensive discussion with the patient and family regarding the fact that I feel that she needs to be transferred to higher level of care with nephrology should she worsen and need dialysis, especially given hyperkalemia. I explained the risk of hyperkalemia, including sudden cardiac . They expressed understanding agreement and are hopeful that the patient will improve with fluid resuscitation and gradual refeeding. They would like to decline any sort of transfer at this time despite knowing the risk of keeping her here since we cannot perform dialysis and do not have nephrology. Workup significant for hyperkalemia, hypoglycemia, elevated anion gap likely in the setting of starvation ketosis, phosphorus 5.3. CBC demonstrates mild leukocytosis and anemia which appear to be stable from earlier labs. She actually has a respiratory alkalosis with metabolic acidosis. Lactic acid mildly elevated at 2.4. Fluid resuscitation ongoing with second liter of fluids ordered. D10 infusion is ongoing. Fingerstick blood glucose at 2330 is 83. She was given additional amp of D50 and given 5 units of insulin IV to try and help with potassium shift. She is on continuous neb at this time of albuterol. I had an interactive discussion with the hospitalist given that the family is adamant against transfer, but they advised that they feel she would benefit from transfer to higher level of care given acute critical illness, EKG changes in the setting of hyperkalemia and acute renal failure. I discussed this with family and they asked if there is any way that we can keep her here in the ED long enough to assess response to intervention and see if there is any way the hospitalist would feel comfortable keeping her if things start to improve. I did discuss this with oncoming provider, Dr. Mcclain, who assumed care of the patient at 2335. Katelyn Cardona DO <Mahad Mcclain MD - Last Filed: 06/27/24 02:42> Vital Signs: 06/26/24 21:38 06/26/24 22:30 06/26/24 22:59 Temperature 98.5 F Temperature Source Oral Pulse Rate Pulse Rate [Left Radial] 107 H Respiratory Rate 14 13 17 Blood Pressure 118/57 L 106/64 L Blood Pressure [Right Arm] 119/57 L Blood Pressure Mean Blood Pressure Mean [Right Arm] 77 Blood Pressure Source [Right Arm] Automatic Cuff Blood Pressure Position [Right Arm] Supine 02 Sat by Pulse Oximetry 94 L Oxygen Delivery Method Room Air 06/26/24 23:00 06/26/24 23:30 06/27/24 00:00 Temperature Temperature Source Pulse Rate 109 H Pulse Rate [Left Radial] Respiratory Rate 15 15 Blood Pressure 111/57 L 93/60 L Blood Pressure [Right Arm] Blood Pressure Mean 67 Blood Pressure Mean [Right Arm] Blood Pressure Source [Right Arm] Blood Pressure Position [Right Arm] 02 Sat by Pulse Oximetry 100 Oxygen Delivery Method 06/27/24 00:15 06/27/24 00:30 06/27/24 00:58 Temperature Temperature Source Pulse Rate 120 H 125 H Pulse Rate [Left Radial] Respiratory Rate 15 Blood Pressure 98/45 L 96/42 L 99/43 L Blood Pressure [Right Arm] Blood Pressure Mean 62 59 61 Blood Pressure Mean [Right Arm] Blood Pressure Source [Right Arm] Blood Pressure Position [Right Arm] 02 Sat by Pulse Oximetry 99 99 Oxygen Delivery Method Room Air Room Air 06/27/24 01:00 06/27/24 01:10 06/27/24 01:17 Temperature Temperature Source Pulse Rate 125 H 125 H Pulse Rate [Left Radial] Respiratory Rate 14 14 Blood Pressure 94/44 L 97/41 L 102/46 L Blood Pressure [Right Arm] Blood Pressure Mean 63 56 62 Blood Pressure Mean [Right Arm] Blood Pressure Source [Right Arm] Blood Pressure Position [Right Arm] 02 Sat by Pulse Oximetry 98 98 Oxygen Delivery Method Room Air Room Air 06/27/24 01:18 06/27/24 01:20 06/27/24 01:50 Temperature Temperature Source Pulse Rate Pulse Rate [Left Radial] Respiratory Rate Blood Pressure 101/42 L 96/44 L 96/41 L Blood Pressure [Right Arm] Blood Pressure Mean 62 57 59 Blood Pressure Mean [Right Arm] Blood Pressure Source [Right Arm] Blood Pressure Position [Right Arm] 02 Sat by Pulse Oximetry Oxygen Delivery Method 06/27/24 02:05 Temperature Temperature Source Pulse Rate Pulse Rate [Left Radial] Respiratory Rate Blood Pressure 102/39 L Blood Pressure [Right Arm] Blood Pressure Mean 65 Blood Pressure Mean [Right Arm] Blood Pressure Source [Right Arm] Blood Pressure Position [Right Arm] 02 Sat by Pulse Oximetry Oxygen Delivery Method Lab Data Lab Results 06/26/24 15:55: HCV Ab DEVIKA w/Rflx PCR Qn Negative, HIV Ag/Ab Combo Qual Negative 06/26/24 21:28: VBG pH 7.43 H, VBG pCO2 21.8 L, VBG pO2 179.4 H, VBG HCO3 14.0 L , VBG Total CO2 14.7 L, VBG O2 Saturation 99.1 H, VBG Base Excess -10.3 L, VBG Lactic Acid 2.4 H 06/26/24 21:35: WBC 11.7 H, RBC 3.72 L, Hgb 9.8 L, Hct 31.0 L, MCV 83.3, MCH 26.3 L, MCHC 31.6 L, RDW 14.0, Plt Count 424, MPV 8.9, Neut % (Auto) 72.2, Lymph % (Auto) 21.2, Frontier % (Auto) 4.6, Eos % (Auto) 1.0, Baso % (Auto) 0.6, Neut # (Auto) 8.4 H, Lymph # (Auto) 2.5, Frontier # (Auto) 0.5, Eos # (Auto) 0.1, Baso # (Auto) 0.1, Sodium 133 L, Potassium 7.1 H*, Chloride 106, Carbon Dioxide 15 L, A nion Gap 19.1 H, BUN 72 H, Creatinine 4.50 H, Estimated Creat Clear 10, E stimated GFR 10 L*, Est GFR ( Amer) 12 L*, Glucose 42 L* D, Hemoglobin A1c 4.9, Calcium 10.5 H, Phosphorus 5.3 H, Magnesium 1.7, Total Bilirubin 0.4, AST 19, ALT 12, Alkaline Phosphatase 80, Troponin I < 0.01, Total Protein 7.9, Albumin 4.2, Globulin 3.7 H, Albumin/Globulin Ratio 1.1, Lipase 293, TSH 1.03, Thyroxine (T4) 8.8 06/26/24 22:30: Lactate 1.3 06/26/24 23:35: Urine Color Yellow, Urine Appearance Clear, Urine pH 5.5, Ur Specific [place] >= 1.030, Urine Protein Negative, Urine Glucose (UA) Negative, Urine Ketones Trace, Urine Blood Negative, Urine Nitrate Negative, Urine Bilirubin Negative, Urine Urobilinogen 0.2, Ur Leukocyte Esterase Negative, Urine RBC 3-5, Urine WBC 5-10, Ur Squamous Epith Cells 5-10, Amorphous Sediment 2+, Urine Bacteria 1+, Urine Mucus 1+ 06/27/24 01:19: Sodium 130 L, Potassium 4.7 D, Chloride 107, Carbon Dioxide 16 L, Anion Gap 11.7, BUN 62 H, Creatinine 3.50 H D, Estimated Creat Clear 13, E stimated GFR 13 L*, Est GFR ( Amer) 15 L* D, Glucose 153 H D, Calcium 9.6, Troponin I < 0.01 Orders (Tests/Meds): ED MEDICATIONS Generic Name Dose Route Start Last Admin Trade Name Dexter PRN Reason Stop Dose Admin Dextrose/Water 500 mls @ 25 mls/hr 06/26/24 21:45 06/26/24 21:50 Dextrose 10% In Water 500ml IV 07/26/24 21:44 25 mls/hr .Q20H RORO Administration Sodium Bicarbonate 150 meq/ 1,150 mls @ 100 mls/hr 06/26/24 21:45 06/27/24 01:03 Dextrose IV 07/26/24 21:44 Not Given .[id number] RORO Sodium Chloride 1,000 mls @ 999 mls/hr 06/27/24 01:45 06/27/24 01:42 Sod Chlor 0.9% 1000ml Bag IV 06/27/24 02:45 999 mls/hr .Q1H1M RORO Administration Norepinephrine/Dextrose 8 mg in 250 mls @ 15 mls/hr 06/27/24 02:15 06/27/24 02:03 Levophed 8mg/250ml-D5w Premix IV 07/27/24 02:14 8 mcg/min .[id number] RORO 15 mls/hr Administration Protocol 8 MCG/MIN Discontinued Medications Generic Name Dose Route Start Last Admin Trade Name Dexter PRN Reason Stop Dose Admin Albuterol Sulfate 20 mg 06/26/24 21:37 06/26/24 23:53 Albuterol 0.083% 2.5 Mg/3 Ml [facility] 06/26/24 21:38 20 mg ONCE ONE Administration Albuterol/Ipratropium 3 ml 06/26/24 21:36 Ipratropium/Albuterol 3 Ml [facility] 06/26/24 21:37 ONCE ONE Albuterol/Ipratropium 20 ml 06/26/24 21:36 Ipratropium/Albuterol 3 Ml [facility] 06/26/24 21:37 ONCE ONE Dextrose 50 ml 06/26/24 21:36 06/26/24 21:50 Dextrose 50% 50ml Syringe (Crash Cart) IVP 06/26/24 21:37 50 ml ONCE ONE Administration Dextrose 50 ml 06/26/24 23:33 06/27/24 00:00 Dextrose 50% 50ml Syringe (Crash Cart) IVP 06/26/24 23:34 50 ml ONCE ONE Administration Lactated Ringer's 1,000 mls @ 999 mls/hr 06/26/24 21:28 06/26/24 21:51 Lactated Ringer's 1000 Ml Bag IV 06/26/24 22:28 999 mls/hr .Q1H1M ONE Administration Calcium Gluconate/Sodium Chloride 2 gm in 100 mls @ 50 mls/hr 06/26/24 21:29 06/27/24 00:00 Calcium Gluconate 2,000mg/100ml Nacl Premix IV 06/26/24 23:28 50 mls/hr ONCE ONE Administration Thiamine HCl 100 mg/ Sodium 51 mls @ 204 mls/hr 06/26/24 21:39 06/26/24 22:15 Chloride IV 06/26/24 21:40 204 mls/hr ONCE ONE Administration Lactated Ringer's 1,000 mls @ 999 mls/hr 06/27/24 00:37 06/27/24 00:40 Lactated Ringer's 1000 Ml Bag IV 06/27/24 01:37 999 mls/hr .Q1H1M ONE Administration Ceftriaxone Sodium 1 gm/ 50 mls @ 100 mls/hr 06/27/24 01:32 06/27/24 01:40 Sodium Chloride IV 06/27/24 02:01 Not Given ONCE ONE Ceftriaxone Sodium 2 gm/ 100 mls @ 200 mls/hr 06/27/24 01:39 06/27/24 01:43 Sodium Chloride IV 06/27/24 02:08 200 mls/hr ONCE ONE Administration Norepinephrine Bitartrate 8 mg 258 mls @ 15.48 mls/hr 06/27/24 01:40 / Sodium Chloride IV 07/27/24 01:39 .[id number] RORO Protocol 8 MCG/MIN Insulin Human Regular 5 unit 06/26/24 23:33 06/26/24 23:54 Insulin Human Regular 100 Units/Ml 10ml Vial IV 06/26/24 23:34 5 unit ONCE ONE Administration Sodium Zirconium Cyclosilicate 10 gm 06/26/24 21:36 06/26/24 22:16 Lokelma 5gm Packet PO 06/26/24 21:37 10 gm ONCE ONE Administration ORDERS Category Date Time Status CT abdomen pelvis wo con Stat Cat Scan 06/26/24 21:[address] chest wo con Stat Cat Scan 06/26/24 21:30 Completed CXR --portable [XR chest portable] Stat Exams 06/27/24 02:27 Ordered BMP [Basic Metabolic Panel] Stat Lab 06/27/24 01:19 Completed Complete Blood Count Auto Diff Stat Lab 06/26/24 21:35 Completed Comprehensive Metabolic Panel Stat Lab 06/26/24 21:35 Completed HIV Combo Stat Lab 06/26/24 15:55 Completed Hemoglobin A1C Stat Lab 06/26/24 21:35 Completed Hepatitis C Ab Qual. W/ RFX Stat Lab 06/26/24 15:55 Completed Lactic Acid Stat Lab 06/26/24 22:30 Completed Lactic Acid Stat Lab 06/27/24 02:20 Received Lipase Stat Lab 06/26/24 21:35 Completed MAG [Magnesium] Stat Lab 06/26/24 21:35 Completed PHOS [Phosphorous] Stat Lab 06/26/24 21:35 Completed T4 (Thyroxine) Stat Lab 06/26/24 21:35 Completed TSH [Thyroid Stimulating Hormone] Stat Lab 06/26/24 21:35 Completed Trop I [Troponin I] Stat Lab 06/26/24 21:35 Completed Troponin I Q3H Lab 06/27/24 01:19 Completed Troponin I Q3H Lab 06/27/24 03:45 Ordered UA [Urinalysis and Microscopic] Stat Lab 06/26/24 23:35 Completed Blood Culture Stat Micro 06/27/24 01:19 Received Urine Culture Stat Micro 06/26/24 23:35 Received VBG [Venous Blood Gas] Stat RT 06/26/24 21:28 Completed VBG [Venous Blood Gas] Stat RT 06/27/24 01:59 Ordered EKG Request [ECG Request] Stat Y 06/27/24 01:58 Ordered ECG Data Tracing #2: I reviewed this ECG and interpreted as documented below: Sinus rhythm with tachycardia to 116, no evidence of peaked T waves consistent with improvement of hyperkalemia ECG initial impression date: 06/27/24 ECG initial impression time: 02:05 Tissue Perfus/Sepsis Re-Eval Sepsis Re-Evaluation Performed: Yes Date Performed: 06/27/24 Time Performed: 02:39 Medical Decision Narrative: In summary patient is a 74-year-old female who presents to the emergency department for evaluation of multiple abnormal labs but primarily acute renal failure derived. Patient is initially hemodynamically stable with a blood pressure 119/57 pulse 107 respiratory rate is 14 O2 sats 94% on room air upon arrival, afebrile. Physical exam shows a well-developed apparently well- nourished 74-year-old female who does not appear to be acute distress. Breath sounds are critical bilaterally to the bases without adventitious sounds. Patient has no dependent edema noted. Patient has no abdominal tenderness on palpation. Patient has sinus tachycardia on the bedside monitor. Differential diagnosis includes acute renal failure versus therapeutic misadventure versus occult infection versus obstructive uropathy etc. Initial workup will be conducted with hematologic labs CT scan abdomen pelvis urinalysis CT scan of the chest without contrast VBG. Initial interventions include as patient is hypoglycemic for now we will hold on insulin and utilize other potassium lowering mechanism including nebulizer treatment as well as calcium. Patient will be started on a D10 drip along with a crystalloid bolus. Patient will be on continuous cardiac monitoring and pulse oximetry. Initial workup ordered and pending at the time of handoff to Dr. Cardona at 2200 hrs. Brendan DO: I was consulted by the JONO, and we discussed the complexity of the problems being addressed. I approved the treatment and management plan for this patient's care in the emergency department, thus performing a substantive portion of the medical decision making. Patient arrives critically ill in the setting of acute renal failure with hyperkalemia and EKG changes. She is hemodynamically stable. She states she is not been eating or drinking anything for quite some time and has had unintentional weight loss, initially starting out over 300 pounds but now weighing 56 kg here. She looks very dry. She states that she has been making urine though not as much as usual because she has not been drinking at all. She also has been continue to take her medications as prescribed despite not eating and drinking as well as despite her unintentional weight loss. She arrives hypoglycemic. She was given D50 push initially and started on a D10 infusion, as I would like to ideally give her insulin to help shift potassium intracellularly. I also ordered continuous albuterol nebulizer treatment. Calcium gluconate was ordered for cardiac membrane stabilization. She was given a liter bolus of IV fluids. CT scan of the chest, abdomen, and pelvis without IV contrast were ordered given acute renal failure in setting of malignancy as well as some chest discomfort. Ultimately, I had a very extensive discussion with the patient and family regarding the fact that I feel that she needs to be transferred to higher level of care with nephrology should she worsen and need dialysis, especially given hyperkalemia. I explained the risk of hyperkalemia, including sudden cardiac . They expressed understanding agreement and are hopeful that the patient will improve with fluid resuscitation and gradual refeeding. They would like to decline any sort of transfer at this time despite knowing the risk of keeping her here since we cannot perform dialysis and do not have nephrology. Workup significant for hyperkalemia, hypoglycemia, elevated anion gap likely in the setting of starvation ketosis, phosphorus 5.3. CBC demonstrates mild leukocytosis and anemia which appear to be stable from earlier labs. She actually has a respiratory alkalosis with metabolic acidosis. Lactic acid mildly elevated at 2.4. Fluid resuscitation ongoing with second liter of fluids ordered. D10 infusion is ongoing. Fingerstick blood glucose at 2330 is 83. She was given additional amp of D50 and given 5 units of insulin IV to try and help with potassium shift. She is on continuous neb at this time of albuterol. I had an interactive discussion with the hospitalist given that the family is adamant against transfer, but they advised that they feel she would benefit from transfer to higher level of care given acute critical illness, EKG changes in the setting of hyperkalemia and acute renal failure. I discussed this with family and they asked if there is any way that we can keep her here in the ED long enough to assess response to intervention and see if there is any way the hospitalist would feel comfortable keeping her if things start to improve. I did discuss this with oncoming provider, Dr. Mcclain, who assumed care of the patient at 2335. DO Johny Ortega MD: I assumed care of the patient at the time of handoff from the prior provider. On my initial assessment patient is more tachycardic after the albuterol nebulizer. BP remains stable with maps in the 60s. As fluids would finish, the blood pressure drops and would come back up with additional fluids. She got total interventions including 3 L of IV fluid, 2 g of calcium, 2 A of D50, 5 units insulin, albuterol nebulizer. I had an interactive discussion with the hospitalist on-call regarding next steps. We plan for repeat BMP and EKG 1 hour after interventions. Patient reports significant symptomatic improvement, but her vital signs continued to worsen with tachycardia to 130 and hypotension with maps in the 50s repeatedly. She was initiated on fourth liter of IV fluids and started on Levophed as well. urine results show some WBCs and bacteria, nitrate negative, could be consistent with UTI. She is initiated on 2 g ceftriaxone IV. I performed a bedside echo and lung ultrasound which shows trace pericardial effusion with no evidence of tamponade, grossly normal EF, grossly normal TAPSE, IVC collapsible with respiratory phasic variation consistent with fluid responsiveness. No evidence of pulmonary edema on anterior views of the lungs. Given this, patient's worsening hemodynamics seem most consistent with distributive shock, most likely septic. Patient's blood pressure and heart rate are improving after the fourth liter and initiation of Levophed. Repeat laboratory results marked improvement in potassium at 4.7, creatinine improved at 3.5. Patient had over 450 of urine out. Repeat EKG shows improvement in T waves and tachycardia. Repeat discussion was had with hospitalist, given improvements in laboratory measures and significant urine output, patient was deemed appropriate for admission here. Johny KRAUSE critical care documentation: On 06/27/24, the high probability of a clinically significant, sudden or life threatening deterioration of the following system: Renal, cardiovascular, neurologic; required my full and direct attention, intervention and personal management. The time I documented below is in addition to time spent performing reported procedures but includes the following listed in this critical care notation. Total critical care time 40 minutes. Procedures <Mahad Mcclain MD - Last Filed: 06/27/24 02:42> Limited Ultrasound Indication:: Limited cardiac ultrasound Indication: Shock Views Obtained: PLAX, PSAX, Apical 4-chamber, Subxiphoid Findings: Trace pericardial effusion with no evidence of tamponade. Grossly normal EF and TAPSE, no focal wall motion abnormalities. IVC is collapsible with respiratory phasic variation Impression: Grossly normal cardiac function, trace pericardial effusion, IVC suggestive of fluid responsiveness Images were saved to permanent archive The study was technically adequate This study was performed by me, and I personally interpreted all images/videos. Views:: Limited lung ultrasound A focused ultrasound exam of the pleural spaces was performed to evaluate for pneumothorax, pulmonary edema, pleural effusion and/or consolidation. The ultrasound was performed with the following indications, as noted in the H&P: Shock Identified structures: Bilateral thoracic cavities were examined. Findings: Lung sliding: -Present bilaterally B-lines: -Absent anteriorly bilaterally Pleural effusion: -Absent bilateral Impression: -No evidence of pneumothorax or volume overload Images were saved to permanent archive The study was technically adequate CPT 95781-41 This study was performed by me, and I personally interpreted all images/videos. Critical Care <HOMERO Roy - Last Filed: 06/26/24 22:17> Critical Care Time Critical Care Time: Yes Attestation: On 06/26/24, the high probability of a clinically significant, sudden or life threatening deterioration of the following system: Renal, cardiovascular, neurologic; required my full and direct attention, intervention and personal management. The time I documented below is in addition to time spent performing reported procedures but includes the following listed in this critical care notation. Total Time Total Critical Care Time: 100 <Katelyn Cardona DO - Last Filed: 06/26/24 23:38> Total Time Total Critical Care Time: 75
--- NOTE | 2024-06-26 21:30 | CT_ITS ---
PROCEDURE INFORMATION: Exam: CT Chest Without Contrast; Diagnostic Exam date and time: 06/26/2024 10:04 PM Age: 74 years old Clinical indication: Pain; Other: Chest discomfort, acute renal failure TECHNIQUE: Imaging protocol: Diagnostic computed tomography of the chest without contrast. Total images: 387 Radiation optimization: All CT scans at this facility use at least one of these dose optimization techniques: automated exposure control; mA and/or kV adjustment per patient size (includes targeted exams where dose is matched to clinical indication); or iterative reconstruction. COMPARISON: CT ANGIO CHEST 12/19/2021 7:36 AM FINDINGS: Lungs: The trachea and main bronchi are patent. Focal right upper lobe bronchiectasis. Stable 4 mm noncalcified right lower lobe nodule, axial image 46 series 3, unchanged from December 19, 2021. Lungs are otherwise clear and well expanded. Calcified right upper lobe granuloma. Pleural spaces: Unremarkable. No pneumothorax. No pleural effusion. Heart: Normal heart size. No pericardial effusion. Coronary arteries: Moderate to severe coronary artery calcifications. Lymph nodes: Calcified mediastinal lymph nodes compatible with remote granulomatous disease. No mediastinal or hilar lymphadenopathy. Vasculature: Ascending aorta is upper normal in caliber 3.8 cm. Mildly atherosclerotic and tortuous thoracic aorta without focal aneurysm. Bones/joints: Osteopenia. Moderate degenerative changes of the thoracic spine. Remote mild anterior wedging and inferior endplate depression of the T4 vertebral body. Remote sternal fracture. Remote distal left clavicular fracture. S-shaped thoracic scoliosis. No acute osseous abnormality. Soft tissues: Status post left mastectomy. IMPRESSION: 1. No acute intrathoracic process. 2. Stable benign 4 mm right lower lobe nodule requiring no follow-up. 3. Remote calcified granulomatous disease. 4. Moderate to severe coronary artery calcifications 5. Status post left mastectomy. 6. Additional chronic and incidental findings.
--- NOTE | 2024-06-26 21:30 | CT_ITS ---
PROCEDURE INFORMATION: Exam: CT Abdomen And Pelvis Without Contrast Exam date and time: 06/26/2024 10:07 PM Age: 74 years old Clinical indication: Other: Acute renal failure TECHNIQUE: Imaging protocol: Computed tomography of the abdomen and pelvis without contrast. Total images: 293 Radiation optimization: All CT scans at this facility use at least one of these dose optimization techniques: automated exposure control; mA and/or kV adjustment per patient size (includes targeted exams where dose is matched to clinical indication); or iterative reconstruction. COMPARISON: CT ABDOMEN PELVIS W CON 12/19/2021 7:36 AM FINDINGS: Liver: Calcified liver granuloma. Otherwise, unremarkable liver. Gallbladder and biliary ducts: Layering gallbladder density implying sludge or noncalcified gallstones. No secondary signs of acute cholecystitis. No bile duct dilatation. Pancreas: Normal. No ductal dilation. Spleen: Calcified splenic granuloma. No splenomegaly. Adrenal glands: Normal. No mass. Kidneys and ureters: 3.3 cm left renal cortical cyst. Mild bilateral perinephric edema. Benign rim type calcification upper pole right kidney. Mild bilateral pelviectasis without ford hydronephrosis. No ureteral stones. Stomach and bowel: Unremarkable stomach and duodenum. Limited bowel wall assessment. No ileus or bowel obstruction. Grossly unremarkable small bowel. Moderate diverticulosis of the descending and sigmoid colon without acute diverticulitis. Appendix: Normal appendix. Intraperitoneal space: Unremarkable. No free air. No significant fluid collection. Vasculature: Moderate atherosclerotic vascular disease. Nonaneurysmal abdominal aorta. Numerous pelvic phleboliths. Lymph nodes: Unremarkable. No enlarged lymph nodes. Urinary bladder: Unremarkable as visualized. Reproductive: Atrophic uterus and ovaries. No adnexal mass. Bones/joints: Moderate degenerative disc disease L5-S1. Minor anterolisthesis L4-L5 is most likely degenerative. Mild degenerative spondylosis remainder of the lumbar spine. No acute osseous abnormality. Soft tissues: Nonspecific mild thickening of the umbilicus. IMPRESSION: 1. No acute intra-abdominal or pelvic process. 2. Mild bilateral perinephric edema. Please correlate with urinalysis and renal function. No obstructive uropathy. 3. Layering gallbladder sludge versus noncalcified gallstones. 4. Moderate colonic diverticulosis. No acute diverticulitis. 5. Additional chronic and incidental findings. COMMENTS: Consistent with the [employer]'s Incidental Findings Committee white paper (J Am Emelyn Radiol 2018): Any incidental renal lesion less than 1 cm or classified as too small to characterize, or any incidental cystic renal lesion characterized as simple-appearing, is likely benign. No follow-up imaging is recommended for these lesions per consensus recommendations based on imaging criteria.
[2024-06-26 21:38] VITALS: BP 119/57; PULSE 107; RESP 14; TEMP 36.9; O2SAT 94
--- NOTE | 2024-06-26 21:44 | PC.NURSE ---
Report received from [facility] and [facility] Pt awake and alert Skin pink warm and dry REsp full and easy Speech clear and appropriate. PT in NSR with 1st degree block. IV site without redness or drainage
[2024-06-26] MEDS: DEXTROSE 10 % IN WATER 500 ML 25 ML IV (21:50)
[2024-06-26] MEDS: DEXTROSE 50% 50ML SYRINGE (CRASH CART) 50 ML IVP (21:50)
[2024-06-26] MEDS: LACTATED RINGERS 1000ML 1,000 ML 999 ML IV (21:51)
[2024-06-26 21:58] LABS: Basophils # 0.1 K/mm3 (0-0.2); Basophils % 0.6 % (0.1-2.0); Eosinophils # 0.1 K/mm3 (0.0-0.4); Hemoglobin 9.8 g/dL (12.2-16.2); Lymphocytes # 2.5 K/mm3 (0.7-4.5); Lymphocytes % 21.2 % (10-50); Mean Corpuscular HGB Conc 31.6 g/dL (31.8-35.4); Mean Corpuscular Hemoglobin 26.3 pg (27.0-31.2); Mean Corpuscular Volume 83.3 fl (81-99); Mean Platelet Volume 8.9 fl (7.4-10.4); Monocytes # 0.5 K/mm3 (0.1-1.0); Monocytes % 4.6 % (1.7-9.3); Neutrophils # 8.4 K/mm3 (1.8-7.8); Neutrophils % 72.2 % (37.0-80.0); Platelet Count 424 K/mm3 (142-424); Red Blood Count 3.72 M/mm3 (4.20-5.40); White Blood Count 11.7 K/mm3 (4.8-10.8)
--- NOTE | 2024-06-26 21:59 | PC.NURSE ---
FSBS recheck, 82mg/DL. SHIELA Baum notified. No new orders at this time. Patient being transported to CT scan via stretcher. Placed on 2LNC prior to departure for CT.
[2024-06-26 22:01] LABS: Albumin Level 4.2 g/dl (3.5-5.0); Chloride 106 mmol/L (98-107); Sodium 133 mmol/L (136-145)
[2024-06-26 22:03] LABS: Blood Urea Nitrogen 72 mg/dl (7-17); Creatinine Clearance Estimated 10 mL/min (50-200); Estimated Glomerular Filt Rate 10 ml/min (>60); GFR (African American) 12 ML/MIN (>60)
[2024-06-26 22:04] LABS: Alanine Aminotransferase 12 U/L (12-78); Albumin/Globulin Ratio 1.1 (1.1-1.8); Alkaline Phosphatase 80 U/L (38-126); Anion Gap 19.1 mEq/L (5-15); Aspartate Amino Transferase 19 U/L (14-36); Bilirubin,Total 0.4 mg/dl (0.2-1.3); Calcium 10.5 mg/dl (8.4-10.2); Carbon Dioxide 15 mmol/L (22.0-30.0); Globulin 3.7 g/dL (1.3-3.2); Magnesium 1.7 mg/dl (1.6-2.3); Phosphorous 5.3 mg/dl (2.5-4.5); Total Protein,Serum 7.9 g/dl (6.3-8.2)
[2024-06-26] MEDS: THIAMINE HCL 100 MG in 0.9 % SODIUM CHLORIDE 50 ML 204 MG IV (22:15)
[2024-06-26] MEDS: LOKELMA 5GM PACKET 10 GM PO (22:16)
[2024-06-26 22:21] LABS: T4 (Thyroxine) 8.8 ug/dl (5.53-11.0)
[2024-06-26 22:30] VITALS: BP 118/57; RESP 13
[2024-06-26 22:35] LABS: Thyroid Stimulating Hormone 1.03 uIU/mL (0.465-4.68)
[2024-06-26 22:37] LABS: Hemoglobin A1C 4.9 % (4.0-6.0); Troponin I < 0.01 ng/ml (0.00-0.034)
[2024-06-26 22:38] LABS: Potassium 7.1 mmoL/L (3.5-5.1)
[2024-06-26 22:39] LABS: Glucose 42 mg/dl (74-100)
--- NOTE | 2024-06-26 22:40 | PC.NURSE ---
2239 - Helder from the lab for critical values, K+7.1, Creat 4.50, Glucose upon arrival 42. Brendan Hope notified of critical lab values 2239. No new orders at this time.
[2024-06-26 22:46] LABS: HIV Combo NEGATIVE (Negative)
[2024-06-26 22:58] LABS: Lactic Acid 1.3 mmol/L (0.7-2.1)
[2024-06-26 22:59] VITALS: BP 106/64; RESP 17
[2024-06-26 23:00] VITALS: BP 111/57; RESP 15
--- NOTE | 2024-06-26 23:07 | PC.NURSE ---
As per the MAR administered 150meq of Sodium Bicarb in 1000mL of D5 at 100mL's/hr, Dr Cardona advised not to administer due to no VBG results back. Also administered 100mg of Thamine in 50mL NS.
[2024-06-26 23:14] LABS: Lactate Venous 2.4 mmol/L (0.4-2.0); VBG Base Excess -10.3 mmol/L (-2.4-2.3); VBG Oxygen Saturation 99.1 % (50-70); VBG PCO2 21.8 mmol/L (35-51); VBG PH 7.43 mmol/L (7.31-7.41); VBG PO2 179.4 mmol/L (28-40); VBG Total CO2 14.7 mmol/L (23-27)
[2024-06-26 23:30] VITALS: BP 93/60
[2024-06-26 23:32] LABS: Lipase 293 U/L (23-300)
[2024-06-26 23:43] LABS: Microscopic, Urine URINE MICROSCOPIC (MICROSCOPIC)
[2024-06-26 23:47] LABS: Hepatitis C Ab Qual. W/ RFX NEGATIVE (Negative)
[2024-06-26] MEDS: ALBUTEROL 0.083% 2.5 MG/3 ML NEB 20 MG IH (23:53)
[2024-06-26] MEDS: INSULIN HUMAN REGULAR 100 UNITS/ML 10ML VIAL 5 UNIT IV (23:54)
--- NOTE | 2024-06-26 23:55 | PC.NURSE ---
[facility] called to obtain Calcium gluconate and D50
[2024-06-27] VITALS (76 sets, daily range): BP systolic 85–125; BP diastolic 39–82; PULSE 50–125; RESP 10–20; TEMP 36.9–37.3; O2SAT 86–100; BMI 22.4
[2024-06-27] MEDS: DEXTROSE 50% 50ML SYRINGE (CRASH CART) 50 ML IVP
[2024-06-27] MEDS: CALCIUM GLUC IN NACL, ISO-OSM 2 GM/100 ML BAG IV
[2024-06-27 00:11] LABS: Appearance,Urine CLEAR (Clear); Bilirubin,Urine Negative (Negative); Blood, Urine Negative (Negative); Color,Urine YELLOW (Yellow); Glucose,Urine (UA) Negative (Negative); Ketones,Urine TRACE (Negative); Leukocyte Esterase,Urine Negative (Negative); Nitrate,Urine Negative (Negative); PH,Urine 5.5 (5.0-8.5); Protein,Urine Negative (Negative); Specific Gravity, Urine >= 1.030 (1.005-1.030); Urobilinogen,Urine 0.2 EU/dl (0.2)
--- NOTE | 2024-06-27 00:12 | PC.NURSE ---
Pt resting comfortably in bed Awake and alert Skin pale warm and dry REsp full and easy Speech clear and appropriate. Family at bedside
--- NOTE | 2024-06-27 00:17 | PC.NURSE ---
BGL of 249mL/dL Q15min check
[2024-06-27] MEDS: LACTATED RINGERS 1000ML 1,000 ML 999 ML IV (00:40)
--- NOTE | 2024-06-27 01:22 | PC.NURSE ---
Blood cultures and repeat labs drawn and sent LR complete.
[2024-06-27 01:26] LABS: Amorphous Sediment,Urine 2+ /lpf; Bacteria,Urine 1+ /lpf; Mucus,Urine 1+ /lpf
[2024-06-27 01:36] LABS: Chloride 107 mmol/L (98-107); Sodium 130 mmol/L (136-145)
[2024-06-27 01:37] LABS: Potassium 4.7 mmoL/L (3.5-5.1)
[2024-06-27 01:39] LABS: Blood Urea Nitrogen 62 mg/dl (7-17); Creatinine Clearance Estimated 13 mL/min (50-200); Estimated Glomerular Filt Rate 13 ml/min (>60); GFR (African American) 15 ML/MIN (>60)
[2024-06-27 01:40] LABS: Anion Gap 11.7 mEq/L (5-15); Calcium 9.6 mg/dl (8.4-10.2); Carbon Dioxide 16 mmol/L (22.0-30.0); Glucose 153 mg/dl (74-100)
[2024-06-27] MEDS: 0.9 % SODIUM CHLORIDE 1000ML 1,000 ML 999 ML IV (01:42)
[2024-06-27] MEDS: CEFTRIAXONE SODIUM 2 GM in 0.9 % SODIUM CHLORIDE 100 ML IV ×2 (01:43→20:31)
[2024-06-27] MEDS: NOREPINEPHRINE BITARTRATE/D5W 8 MG/250 ML PLAST..BAG 15 MG IV (02:03)
--- NOTE | 2024-06-27 02:04 | ECG_ITS ---
APPROVED REPORT Exam: Resting ECG HR:116 bpm ECG Measurements Heart Rate 116 AXES HI 77 P 247 QRSd 77 QRS -5 QT 308 T 98 QTc 377 Conclusion JUNCTIONAL TACHYCARDIA LOW QRS VOLTAGE IN PRECORDIAL LEADS [QRS DEFLECTION < 1.0 mV IN CHEST LEADS] ANTEROSEPTAL MYOCARDIAL INFARCTION , OF INDETERMINATE AGE [40+ ms Q WAVE IN V1-V4] No STEMI Electronically signed by : MICHAEL PATEL, 06/28/2024 03:16:41
--- NOTE | 2024-06-27 02:09 | PC.NURSE ---
IV's infusing without difficulty no change in previous assessment
[2024-06-27 02:23] LABS: Troponin I < 0.01 ng/ml (0.00-0.034)
--- NOTE | 2024-06-27 02:27 | XR_ITS ---
PROCEDURE INFORMATION: Exam: XR Chest Exam date and time: 06/27/2024 2:31 AM Age: 74 years old Clinical indication: Other: Shock TECHNIQUE: Imaging protocol: Radiologic exam of the chest. Views: 1 view. Total images: 1 COMPARISON: CT CHEST WO CON 06/26/2024 10:04 PM FINDINGS: Tubes, catheters and devices: EKG leads are present. Lungs: Unremarkable. No consolidation. No pulmonary vascular congestion or edema. Pleural spaces: Unremarkable. No pleural effusion. No pneumothorax. Heart/Mediastinum: Unremarkable. No cardiomegaly. No mediastinal widening or hilar enlargement. Vasculature: Tortuous and mildly atherosclerotic thoracic aorta. Diaphragm: Mild eventration right hemidiaphragm. Bones/joints: Mild thoracic dextrocurvature. Osteopenia. Partially visualized mild degenerative changes lower thoracic spine. Soft tissues: Status post left mastectomy with multiple surgical clips in the chest wall. IMPRESSION: No radiographically acute cardiopulmonary process.
--- NOTE | 2024-06-27 02:33 | PC.NURSE ---
REport called to [facility] Pt transported to ICu via stretcher with IV O2, RN and monitor
--- NOTE | 2024-06-27 02:58 | P.HP_ITS ---
History of Present Illness *Admission Date: 06/27/24 *Reason for visit:: Generalized weakness *History of present illness: This is a 74-year-old female with past medical history of breast cancer on oral chemo, recent significant weight loss, who presents emergency department today for generalized weakness. She presents to the ER with her daughter today who provides collateral and states that she has been generally weak for several months. She reports loss of appetite with substantial weight loss. Used to be about 300 pounds now down to about 122 with 20 pounds being lost in the last month. 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 Other than generalized weakness and ongoing tiredness, has felt at her baseline. Denies any chest pain, shortness of breath, cough, chest congestion. Denies any diarrhea or vomiting. Denies any dysuria or CVA tenderness. She does admit to extreme stressors over the last year. Has been the primary caregiver of her who does suffer from dementia who has had increasing behavioral issues recently. He has recently been admitted to the custodial. She also has had to sell her home and moved to an apartment as well as being from her to be able to afford increasing financial pressures. She had labs drawn at her PCPs office and was noted to have acute renal failure with a creatinine of 4.4 and a potassium of 8.5. She was called immediately to present to the emergency department for further evaluation Initial repeat labs on ED workup notable as follows K 7.1 Anion gap 19 Creatinine 4.5 Glucose 42 pH 7.43 Bicarb 15 Troponin negative Lipase 293 EKG with Q waves and ST changes Urinalysis with bacteria, sediment, white blood cells CT chest abdomen pelvis imaging notable for: Stable benign 4 mm right lower lobe nodule, status post left mastectomy, bilateral perinephric edema, gallbladder sludge without gallstones Given above abnormalities, hospitalist admission was initially deferred given no nephrology available. Shared decision making with the family per ED provider and given patient's daughter is an employee of the hospital, requested not being transferred to another facility. It was determined that treatment modalities would be initiated to attempt to improve overall picture to see if patient would be a candidate for admission here. Family requested treatment in the ER with repeat labs for this purpose. Patient was medicated in the ER with albuterol, D10 infusion, IV insulin, Rocephin, Kayexalate, and 2 L crystalloid infusion Repeat labs obtained with significant improvement in labs K of 4.7 Creatinine of 3.5 glucose of 153 Calcium of 9.6 Bicarbonate of [address] changes. Patient did become hypotensive and tachycardic with systolic blood pressure in the 90s and tachycardic in the 120s. With additional 2 L fluid infusion, she was fluid responsive but ultimately requiring Levophed for MAP support. Chaudhari catheter in place draining 75 to 100 mL/h On reassessment, patient feels substantially better. States that she feels less weak and more alert. States this is the best that she has felt in several days. Given improvement in labs, and with request of family for no transfer to another facility, will admit here for further evaluation [facility] Disclaimer: The information contained in this section may have been updated after the patient was seen, as this information can be updated by other users. 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 current occupational exposures/hazards: No caffeine: Yes Have you lived/traveled outside [place] in past 30 days?: No Contact w/someone who lives/traveled outside US past 30 days?: No Exposure to someone with infectious disease in past 14 days?: No Do you have a fever (greater than 100.4 F or 38 C)?: No Have you tested positive for COVID-19: No Exposed to someone with COVID-19 in past 14 days?: No Do you have a sore throat?: No Do you have a cough?: No Do you have any weakness?: No Do you have any diarrhea?: No Are you experiencing any unusual bleeding?: No Do you have any muscle aches/pain?: No Do you have any abdominal pain?: No Are you experiencing loss of taste or smell?: No Other Medical History Have you received the Flu Vaccine for this season: Yes Have you received the Pneumonia Vaccine: No Review of Systems Review of Systems Review of systems:: pertinent systems reviewed and negative unless documented below Review of systems (narrative): Negative except for HPI Meds Home Medications and Allergies Home Medications ?Medication ?Instructions ?Recorded ?Confirmed ?Type anastrozole 1 mg tablet 1 mg PO DAILY 11/03/18 06/27/24 History aspirin 81 mg tablet,delayed 81 mg PO DAILY 11/03/18 06/27/24 History release (Adult Low Dose Aspirin) lancets 30 gauge and blood glucose #100 ea 03/25/22 06/27/24 Rx strips combo pack blood-glucose meter #1 ea 04/01/22 06/27/24 Rx lancets (Accu-Chek Softclix #100 ea 05/28/22 06/27/24 Rx Lancets) blood sugar diagnostic (Accu-Chek #100 ea 07/26/23 06/27/24 Rx Guide test strips) allopurinol 100 mg tablet 100 mg PO DAILY gout 90 days #90 08/04/23 06/27/24 Rx tabs levothyroxine 50 mcg tablet 50 mcg PO DAILY Thyroid 90 days 12/11/23 06/27/24 Rx #90 tabs lisinopril 20 mg tablet 20 mg PO DAILY Hypertension 90 12/11/23 06/27/24 Rx days #90 tabs gabapentin 800 mg tablet 800 mg PO QID neuropathy #120 tabs 04/03/24 06/27/24 Rx blood sugar diagnostic (Blood #100 ea 04/12/24 06/27/24 Rx Glucose Test strips) blood-glucose meter (Blood Glucose #1 ea 04/12/24 06/27/24 Rx Monitoring kit) diclofenac sodium 75 mg 75 mg PO BID Pain 90 days #180 tabs 06/15/24 06/27/24 Rx tablet,delayed release mirtazapine 7.5 mg tablet 7.5 mg PO HS sleep #14 tabs 06/26/24 06/27/24 Rx amitriptyline 25 mg tablet 25 mg PO DAILY 06/27/24 06/27/24 History famotidine 20 mg tablet (Pepcid) 20 mg PO BID 06/27/24 06/27/24 History metformin 1,000 mg tablet 1,000 mg PO BID 06/27/24 06/27/24 History triamterene 37.5 1 tab PO DAILY 06/27/24 06/27/24 History mg-hydrochlorothiazide 25 mg tablet zolpidem 10 mg tablet 10 mg PO DAILY 06/27/24 06/27/24 History New Prescriptions to Start Prescriptions: Allergies Allergy/AdvReac Type Severity Reaction Status Date / Time No Known Allergies Allergy Verified 04/19/24 10:24 Exam Data for Last 24 hours Vital signs and Labs for Last 24 Hours: Temp Pulse Resp BP Pulse Ox O2 Del Method O2 Flow Rate 98.5 F 111 H 20 100/50 L 98 Nasal Cannula 2 06/27/24 02:56 06/27/24 02:56 06/27/24 02:56 06/27/24 02:56 06/27/24 01:10 06/27/24 02:56 06/27/24 02:56 Laboratory Results - last 24 hr 06/26/24 15:55: HCV Ab DEVIKA w/Rflx PCR Qn Negative, HIV Ag/Ab Combo Qual Negative 06/26/24 21:28: VBG pH 7.43 H, VBG pCO2 21.8 L, VBG pO2 179.4 H, VBG HCO3 14.0 L , VBG Total CO2 14.7 L, VBG O2 Saturation 99.1 H, VBG Base Excess -10.3 L, VBG Lactic Acid 2.4 H 06/26/24 21:35: WBC 11.7 H, RBC 3.72 L, Hgb 9.8 L, Hct 31.0 L, MCV 83.3, MCH 26.3 L, MCHC 31.6 L, RDW 14.0, Plt Count 424, MPV 8.9, Neut % (Auto) 72.2, Lymph % (Auto) 21.2, [place] % (Auto) 4.6, Eos % (Auto) 1.0, Baso % (Auto) 0.6, Neut # (Auto) 8.4 H, Lymph # (Auto) 2.5, [place] # (Auto) 0.5, Eos # (Auto) 0.1, Baso # (Auto) 0.1, Sodium 133 L, Potassium 7.1 H*, Chloride 106, Carbon Dioxide 15 L, Anion Gap 19.1 H, BUN 72 H, Creatinine 4.50 H, Estimated Creat Clear 10, Estimated GFR 10 L*, Est GFR ( Amer) 12 L*, Glucose 42 L* D, Hemoglobin A1c 4.9, Calcium 10.5 H, Phosphorus 5.3 H, Magnesium 1.7, Total Bilirubin 0.4, AST 19, ALT 12, Alkaline Phosphatase 80, Troponin I < 0.01, Total Protein 7.9, Albumin 4.2, Globulin 3.7 H, Albumin/Globulin Ratio 1.1, Lipase 293, TSH 1.03, Thyroxine (T4) 8.8 06/26/24 22:30: Lactate 1.3 06/26/24 23:35: Urine Color Yellow, Urine Appearance Clear, Urine pH 5.5, Ur Specific [place] >= 1.030, Urine Protein Negative, Urine Glucose (UA) Negative, Urine Ketones Trace, Urine Blood Negative, Urine Nitrate Negative, Urine Bilirubin Negative, Urine Urobilinogen 0.2, Ur Leukocyte Esterase Negative, Urine RBC 3-5, Urine WBC 5-10, Ur Squamous Epith Cells 5-10, Amorphous Sediment 2+, Urine Bacteria 1+, Urine Mucus 1+ 06/27/24 01:19: Sodium 130 L, Potassium 4.7 D, Chloride 107, Carbon Dioxide 16 L, Anion Gap 11.7, BUN 62 H, Creatinine 3.50 H D, Estimated Creat Clear 13, Estimated GFR 13 L*, Est GFR ( Amer) 15 L* D, Glucose 153 H D, Calcium 9.6, Troponin I < 0.01 06/27/24 02:20: Lactate 1.0 I & O for Last 24 hours: Intake & Output 06/24/24 06/25/24 06/26/24 06/27/24 23:59 23:59 23:59 23:59 Output Total 150 / 150 250 / 250 Balance -150 / -150 -250 / -250 Weight 56.699 kg Constitutional Constitutional: no acute distress *Routine HEENT Exam Head: Present normocephalic Eye: Present EOMI and PERRL ENT: Present mucous membranes moist *Routine Neck Exam Neck: Present supple; Absent lymphadenopathy *Routine Respiratory Exam Respiratory: Present CTA bilaterally *Routine Cardiovascular Exam Cardiovascular: Present RRR *Routine Abdominal Exam Abdominal: Present soft and normoactive bowel sounds; Absent tenderness *Routine Rectal Exam Rectal:: deferred *Routine Genitalia Exam Genitalia:: deferred *Routine Extremities Exam Extremities: Absent cyanosis, clubbing or edema *Routine Skin Exam Skin: Present warm; Absent rash *Routine Neurological Exam Neurological: Present alert and oriented X3 Assessment and Plan *Assessment and plan (1) Sepsis with acute organ dysfunction and septic shock: Status: Acute Qualifiers: Sepsis type: sepsis due to unspecified organism Severe sepsis acute organ dysfunction type: unspecified Qualified Code(s): A41.9 - Sepsis, unspecified organism; R65.21 - Severe sepsis with septic shock Category: Medical Code(s): A41.9 - Sepsis, unspecified organism; R65.21 - Severe sepsis with septic shock (2) Acute renal failure: Status: Acute Qualifiers: Acute renal failure type: with acute tubular necrosis Qualified Code(s): N17.0 - Acute kidney failure with tubular necrosis Category: Medical Code(s): N17.9 - Acute kidney failure, unspecified (3) Acute cystitis: Status: Acute Qualifiers: Hematuria presence: without hematuria Qualified Code(s): N30.00 - Acute cystitis without hematuria Category: Medical Code(s): N30.00 - Acute cystitis without hematuria (4) Hypoglycemia: Status: Acute Category: Medical Code(s): E16.2 - Hypoglycemia, unspecified (5) Respiratory alkalosis: Status: Acute Category: Medical Code(s): E87.3 - Alkalosis (6) Metabolic acidosis: Status: Acute Category: Medical Code(s): E87.20 - Acidosis, unspecified (7) Breast cancer, left breast: Status: Acute Qualifiers: Breast location: unspecified site of breast Estrogen receptor status: positive Patient sex: female Qualified Code(s): C50.912 - Malignant neoplasm of unspecified site of left female breast; Z17.0 - Estrogen receptor positive status [ER+] Category: Medical Code(s): C50.912 - Malignant neoplasm of unspecified site of left female breast (8) Grief: Status: Acute Category: Medical Code(s): F43.21 - Adjustment disorder with depressed mood (9) Hyperkalemia: Status: Acute Category: Medical Code(s): E87.5 - Hyperkalemia (10) Severe protein-calorie malnutrition: Status: Acute Category: Medical Code(s): E43 - Unspecified severe protein-calorie malnutrition Plan Case discussed with ER physician, request admission for septic shock and acute organ dysfunction including renal failure, hyperkalemia, urinary tract infection with suspected pyelonephritis. Medicine agreed to admit after stabilization in the ER. Patient critically ill necessitating ICU treatment. Monitoring electrolytes closely. Repeat CBC, CMP, magnesium and procalcitonin ordered for the morning. #Acute renal failure with ATN #Hyperkalemia New acute renal failure likely secondary to severe dehydration. Reports poor oral intake over the last week with substantial weight loss over the last year. Initial potassium today of 8.5--7.1--4.7 (after medical treatment modalities) Continue IV hydration Strict intake and output, Chaudhari catheter in place. Currently with 75 mL liters per hour output Renal function improved. Initial creatinine 4.5 with improvement to 3.5 Repeat BMP in a.m. Avoid nephrotoxic medications #Severe sepsis with septic shock #Acute cystitis Meets criteria for tachycardia, hypotension, acute renal failure and possible urinalysis source Urine with bacteria, sediment and perinephric stranding noted on CT imaging Continue Rocephin Blood cultures obtained, follow-up Follow-up urine culture Follow-up MRSA legionnaire Follow-up procalcitonin Continue Levophed for MAP of 65, wean as tolerated Continue IV fluid resuscitation POCUS in ED notable for significantly collapsible IVC. No evidence of respiratory involvement with fluid administration. #Mixed metabolic acidosis with respiratory alkalosis CO2 of 16, pH is 7.47 with respiratory alkalosis component Repeat VBG pending Continue treatment of the above-mentioned diagnoses Oxygenating well on room air. #T2DM #Hypoglycemia Glucose of 42 on chemistry, now improved into the 150s. Requiring D10 infusion for glucose maintenance. Also required for shifting modalities for hyperkalemia Continue glucose drip at this time. Every hour glucose checks with the intent to titrate D10 by a.m. #Severe protein calorie malnutrition Substantial weight loss. At some point this year weighed approximately 300 pounds now down to 122. Megace started by PCP, will continue #Grief, depression Significant stressors in patient's life Complicating all aspects of care Rounded on patient after nurse practitioner. Personally examined and interviewed patient. Agree with exam findings and care plan as documented.
[2024-06-27 03:24] LABS: Lactate Venous 1.6 mmol/L (0.4-2.0); VBG Base Excess -9.9 mmol/L (-2.4-2.3); VBG HCO3 15.9 mmol/L (23-30); VBG PCO2 30.2 mmol/L (35-51); VBG PH 7.34 mmol/L (7.31-7.41); VBG PO2 94.4 mmol/L (28-40); VBG Total CO2 16.8 mmol/L (23-27)
[2024-06-27] MEDS: 0.9 % SODIUM CHLORIDE 1000ML 1,000 ML 100 ML IV (03:54)
[2024-06-27 03:59] LABS: Troponin I 0.02 ng/ml (0.00-0.034)
--- NOTE | 2024-06-27 04:27 | EXP.SEPSISRE ---
[facility] Tissue Perfusion Eval Sepsis Re-Evaluation Performed: Yes Date Performed: 06/27/24 Time Performed: 04:27
[2024-06-27] MEDS: ACETAMINOPHEN 325MG TAB 650 MG PO (04:53)
[2024-06-27 06:15] LABS: Basophils # 0.1 K/mm3 (0-0.2); Basophils % 0.6 % (0.1-2.0); Eosinophils # 0.1 K/mm3 (0.0-0.4); Eosinophils % 0.9 % (0.1-12.0); Hematocrit 23.4 % (37.0-47.0); Lymphocytes # 2.1 K/mm3 (0.7-4.5); Lymphocytes % 18.9 % (10-50); Mean Corpuscular HGB Conc 32.9 g/dL (31.8-35.4); Mean Corpuscular Hemoglobin 27.2 pg (27.0-31.2); Mean Corpuscular Volume 82.7 fl (81-99); Mean Platelet Volume 8.9 fl (7.4-10.4); Monocytes # 0.7 K/mm3 (0.1-1.0); Monocytes % 6.4 % (1.7-9.3); Neutrophils # 8.2 K/mm3 (1.8-7.8); Neutrophils % 72.8 % (37.0-80.0); Platelet Count 368 K/mm3 (142-424); Red Blood Count 2.83 M/mm3 (4.20-5.40); Red Cell Distribution Width 13.9 % (11.5-17.5); White Blood Count 11.3 K/mm3 (4.8-10.8)
[2024-06-27 06:33] LABS: Anion Gap 15.3 mEq/L (5-15); Blood Urea Nitrogen 58 mg/dl (7-17); Calcium 9.4 mg/dl (8.4-10.2); Carbon Dioxide 16 mmol/L (22.0-30.0); Chloride 109 mmol/L (98-107); Creatinine Clearance Estimated 13 mL/min (50-200); Estimated Glomerular Filt Rate 12 ml/min (>60); GFR (African American) 15 ML/MIN (>60); Glucose 129 mg/dl (74-100); Magnesium 1.4 mg/dl (1.6-2.3); Potassium 5.3 mmoL/L (3.5-5.1); Sodium 135 mmol/L (136-145)
[2024-06-27 06:34] LABS: Hemoglobin 7.6 g/dL (12.2-16.2)
[2024-06-27 06:37] LABS: Alanine Aminotransferase 9 U/L (12-78); Albumin Level 2.8 g/dl (3.5-5.0); Alkaline Phosphatase 63 U/L (38-126); Aspartate Amino Transferase 14 U/L (14-36); Bilirubin,Direct 0.1 mg/dl (0.0-0.4); Total Protein,Serum 5.5 g/dl (6.3-8.2)
[2024-06-27 06:45] LABS: Bilirubin,Total 0.1 mg/dl (0.2-1.3)
[2024-06-27 06:47] LABS: Procalcitonin 0.199 ng/mL (0.0-2.0)
--- NOTE | 2024-06-27 07:31 | [facility].PHAINT1 ---
Pharmacy Intervention Comments: VERIFIED AND CONFIRMED MEDICATIONS WITH OUTPATIENT PHARMACY.
[2024-06-27] MEDS: LEVOTHYROXINE 50MCG (0.05MG) TAB 50 MCG PO (08:49)
--- NOTE | 2024-06-27 11:57 | HMH.OTEV ---
OT Inpatient Evaluation Rehab OT IP Evaluation Start: 06/27/24 09:25 Freq: ONCE Status: Active Protocol: Document 06/27/24 11:48 BRUNOSOBEIDA (Rec: 06/27/24 11:57 TUCKER [id number]) Rehab OT IP Assessment Subjective History This is a 74-year-old female with past medical history of breast cancer on oral chemo, recent significant weight loss , who presents emergency department today for generalized weakness. She presents to the ER with her daughter today who provides collateral and states that she has been generally weak for several months. She reports loss of appetite with substantial weight loss. Used to be about 300 pounds now down to about 122 with 20 pounds being lost in the last month. 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 Other than generalized weakness and ongoing tiredness , has felt at her baseline. Denies any chest pain, shortness of breath, cough, chest congestion. Denies any diarrhea or vomiting. Denies any dysuria or CVA tenderness. She does admit to extreme stressors over the last year. Has been the primary caregiver of her who does suffer from dementia who has had increasing behavioral issues recently. He has recently been admitted to the [facility]. She also has had to sell her home and moved to an apartment as well as being from her to be able to afford increasing financial pressures . She had labs drawn at her PCPs office and was noted to have acute renal failure with a creatinine of 4.4 and a potassium of 8.5. She was called immediately to present to the emergency department for further evaluation. Patient lives alone in 1 story apart with no JOSÉ MIGUEL. Independent with ADLs and fx'l mobility prior to admission. Continues to drives. Subjective I can get up. Instructed Patient on safety awareness to complete bed mobility, STS and LB drsg requiring Min A. No LOB noted. Assisted Patient back in bed with min A. Objective Patient Orientation Person,Place,Name,Age,Birthday Right Upper Extremity Gross ROM WFL Left Upper Extremity Gross ROM WFL Bed Mobility bed mobility - supine/sit Assist Level Minimal x 1 (25% assist) Transfer Training Sit/Stand Transfer Assist Level Minimal x 1 (25% assist) Chair Transfer Ability Minimal x 1 (25% assist) Rehab OT IP prob,goals,plan Problems Date of Evaluation: 06/27/24 OT IP Problems Bed Mobility,Transfers,Balance ,Self care,Safety Rehab Potential Rehab Potential Good Equipment Needs Assistive Devices None / NA Plan OT intervention Plan Bed Mobility,Transfers,Balance ,Self care,Safety,Therapeutic Exercise OT Plan Frequency Daily Discharge Goals Bed Mobility Ability Standby Assistance Sit to Stand Chair Transfer Ability Supervision/Stand by Chair Transfer Ability Supervision/Stand by Chair Transfer Technique Sit to/from Ambulatory Lower Body Dressing Ability Contact Guard Discharge Plan OT Discharge Plan Return home with services or 04/01 care or referred to [facility] facility prior to returning home. Patient continues to need assistance for fx'l mobility to decrease LOB and fall risk. Patient to continue to be seen at [facility] for OT IP services. Eval Complexity Eval Charge Codes 15428 - Low Complexity PHYSICIAN CERTIFICATION: I certify the specified therapy services for Maya Hope are required, authorized, and reviewed every 30 days.
[2024-06-27 12:25] LABS: POC Glucose,Bedside 140 (70-110)
[2024-06-27 12:25] LABS: POC Glucose,Bedside 217 (70-110)
[2024-06-27 12:25] LABS: POC Glucose,Bedside 189 (70-110)
[2024-06-27 12:25] LABS: POC Glucose,Bedside 183 (70-110)
[2024-06-27 12:25] LABS: POC Glucose,Bedside 151 (70-110)
[2024-06-27 12:25] LABS: POC Glucose,Bedside 120 (70-110)
[2024-06-27 12:25] LABS: POC Glucose,Bedside 121 (70-110)
--- NOTE | 2024-06-27 13:58 | HMH.PTEV ---
Physical Therapy Evaluation Rehab PT IP Evaluation Start: 06/27/24 09:25 Freq: ONCE Status: Active Protocol: Document 06/27/24 13:47 RITU (Rec: 06/27/24 13:58 RITU [id number]) Subjective/History History History Per H&P: This is a 74-year- old female with past medical history of breast cancer on oral chemo, recent significant weight loss, who presents emergency department today for generalized weakness... Subjective Subjective Pt reports she lives home alone in a single story home and is IND with all mobility with AD use. New diagnosis of cancer in past 12 No months? Rehab PT IP Eval Objective Appearance Patient Behavior Appropriate,Cooperative Patient Orientation Person,Situation Difficulty following instructions none Speech Pattern Clear Ambulation Patient Able to Ambulate Yes Ambulation Observation IP General Gait Pattern Observation Narrow Based Gait Ambulation Distance (feet) 40 Ambulation Assistive Device Rolling Walker Ambulation Ability Minimal x 1 (25% assist) Balance Ability to Arise Able, uses arms to help Sitting Balance Steady, safe Standing Balance Steady, wide stance Dynamic Sitting Balance Ability Good Dynamic Standing Balance Ability Good Transfers Bed Transfer Ability Minimal x 1 (25% assist) Sit to Stand Bed Transfer Ability Contact Guard/Hand Hold Rehab PT IP prob,goals,plan Problems Date of Evaluation: 06/27/24 PT IP Problems Bed Mobility,Transfers,Gait, Balance,Self care,Safety Rehab Potential Rehab Potential Good Equipment Needs Assistive Devices Rolling / Wheeled Walker Plan PT Intervention Plan Bed Mobility,Transfers,Gait, Balance,Self care,Safety, Therapeutic Exercise Other Intervention Plan 1-2 times PT Plan Frequency Daily Duration LOS Discharge Goals Bed Transfer Ability Supervision/Stand by Sit to Stand Chair Transfer Ability Supervision/Stand by Ambulation Assistive Device Rolling Walker Ambulation Distance (feet) 100 Discharge Plan PT Discharge Plan Initial physical therapy evaluation performed. Patient presents below baseline at this time in functional mobility, transfers, and strength. Pt not safe to return home alone at this time d/t current level of functional mobility. PT recommending short-term inpatient rehabilitation stay upon d/c from [facility]. Pt may be able to return home with RW for ambulation if she can obtain 24/7 supervision from family. Pt would benefit from skilled PT while at [facility] to prevent further functional decline and maximize safety with mobility. Eval Complexity Eval Charge Codes 64907 - Moderate Complexity PHYSICIAN CERTIFICATION: I certify the specified therapy services for Maya Galiciaarland are required, authorized, and reviewed every 30 days.
--- NOTE | 2024-06-27 14:08 | P.PN_ITS ---
Critical Care Event Note Summary Code activated: No Narrative: This case had a high probability of a clinically significant, sudden, or life threatening deterioration of this patient's condition which required my full and direct attention, intervention and personal management. Evaluated patient was morning. Remains quite weak. Seeing improvement in kidney function and electrolytes. Monitoring on telemetry. Remains in sinus rhythm, having's bradycardia today with heart rates in the high 50s to low 60s. Remained stable on room air. Tolerating maintenance fluids at 100 cc of normal saline an hour. White count remains elevated 11.3. Kidney function with improvement of BUN from 73-58 on morning labs. Creatinine down from 4.5-3.6. Potassium 4.3 today. Magnesium 1.4 being replaced. Phosphorus acceptable at 4.0. Continues to have a metabolic acidosis with bicarb of 16. Urine output is improved overnight. Making 100-150 cc of urine an hour, light yellow, clear. Has had almost a liter and a half of output since admission/placement of Chaudhari. Alert but slow per daughter who is at bedside. Denies any chest pain. Does complain of some flank pain. Afebrile. Repeat CBC, CMP, magnesium ordered for this afternoon. Remains on norepinephrine to maintain blood pressure MAP greater than 65. Weaning from 8-7 mcg/min. Remains anemic with hemoglobin 7.6. Transfusion threshold hemoglobin less than 7. Patient continues to require inpatient management in the ICU for septic shock. Continuing antibiotics with ceftriaxone pending urine culture. ICU/Critical care attestation This patient is critically ill with 35 minutes devoted solely to this patient managing life/organ supporting interventions that required physician assessment. This includes time spent making adjustments in ventilator settings, IV fluid administration, titration of pressors, adjustments of medications, discussion of patient with consultants and other care providers as well as updating patient and/or family (if patient by virtue of his/her condition is unable to participate in decision making). This does not include time spent performing separately billed procedures. Time is not concurrent with that of other providers. Critical care time: 30 - 74 mins [facility] Critical Care Exam Physical Exam Vital signs: Temp Pulse Resp BP Pulse Ox O2 Del Method O2 Flow Rate 99.1 F 56 L 14 106/82 L 99 Room Air 2 06/27/24 04:16 06/27/24 13:00 06/27/24 13:00 06/27/24 13:00 06/27/24 13:00 06/27/24 13:00 06/27/24 03:00 Constitutional Constitutional: Present no acute distress and cooperative Comments: Fatigued. Routine HEENT Exam Head: Present normocephalic and atraumatic ENT: Present mucous membranes moist Routine Respiratory Exam Respiratory: Absent rhonchi, wheezes or crackles Routine Cardiovascular Exam Cardiovascular: Present RRR Routine Abdominal Exam Abdominal: Present soft and normoactive bowel sounds; Absent tenderness
--- NOTE | 2024-06-27 16:43 | PC.NURSE ---
Pt is A&O x4. No complaints stated. She is currently resting in bed. Has ambulated with OT/PT this shift and done well. Still remains week though. Appetite is fair. VS are currently stable. She remains on Levophed gtt currently infusing @ 4 mcg/min. She has been Sinus, Sinus reggie, Sinus Tach on telemetry. FSBS has remained stable this shift. Last fingerstick 186. Call light within reach.
[2024-06-27 16:48] LABS: POC Glucose,Bedside 184 (70-110)
[2024-06-27 17:48] LABS: Hematocrit 25.7 % (37.0-47.0); Hemoglobin 8.3 g/dL (12.2-16.2)
[2024-06-27 17:54] LABS: Blood Urea Nitrogen 48 mg/dl (7-17); Calcium 9.6 mg/dl (8.4-10.2); Carbon Dioxide 19 mmol/L (22.0-30.0); Chloride 110 mmol/L (98-107); Creatinine Clearance Estimated 17 mL/min (50-200); Estimated Glomerular Filt Rate 17 ml/min (>60); GFR (African American) 20 ML/MIN (>60); Glucose 163 mg/dl (74-100); Sodium 138 mmol/L (136-145)
--- NOTE | 2024-06-27 17:55 | PC.NURSE ---
Levophed was titrated up to 5 mcg/min due to BP decline. BP is currently 98/51. CRE swab obtained. Call light within reach.
[2024-06-27 18:33] LABS: Anion Gap 14.3 mEq/L (5-15); Potassium 5.3 mmoL/L (3.5-5.1)
[2024-06-27] MEDS: NOREPINEPHRINE BITARTRATE/D5W 8 MG/250 ML PLAST..BAG 9.38 MG IV (20:32)
[2024-06-27 20:46] LABS: POC Glucose,Bedside 128 (70-110)
[2024-06-28] VITALS (67 sets, daily range): BP systolic 85–129; BP diastolic 42–78; PULSE 47–94; RESP 10–19; TEMP 36.6–37; O2SAT 90–100; BMI 22.9
[2024-06-28 06:19] LABS: POC Glucose,Bedside 96 (70-110)
[2024-06-28] MEDS: LEVOTHYROXINE 50MCG (0.05MG) TAB 50 MCG PO (07:04)
[2024-06-28 07:05] LABS: Basophils # 0.1 K/mm3 (0-0.2); Basophils % 0.8 % (0.1-2.0); Eosinophils # 0.3 K/mm3 (0.0-0.4); Hematocrit 27.6 % (37.0-47.0); Hemoglobin 8.7 g/dL (12.2-16.2); Lymphocytes # 1.6 K/mm3 (0.7-4.5); Mean Corpuscular HGB Conc 31.5 g/dL (31.8-35.4); Mean Corpuscular Hemoglobin 26.3 pg (27.0-31.2); Mean Corpuscular Volume 83.4 fl (81-99); Mean Platelet Volume 9.1 fl (7.4-10.4); Monocytes # 0.4 K/mm3 (0.1-1.0); Monocytes % 5.6 % (1.7-9.3); Neutrophils # 5.2 K/mm3 (1.8-7.8); Neutrophils % 68.3 % (37.0-80.0); Platelet Count 354 K/mm3 (142-424); Red Blood Count 3.31 M/mm3 (4.20-5.40); Red Cell Distribution Width 14.3 % (11.5-17.5); White Blood Count 7.5 K/mm3 (4.8-10.8)
[2024-06-28 07:32] LABS: Alanine Aminotransferase 10 U/L (12-78); Albumin Level 3.2 g/dl (3.5-5.0); Alkaline Phosphatase 68 U/L (38-126); Anion Gap 12.1 mEq/L (5-15); Aspartate Amino Transferase 23 U/L (14-36); Blood Urea Nitrogen 39 mg/dl (7-17); Calcium 9.7 mg/dl (8.4-10.2); Carbon Dioxide 20 mmol/L (22.0-30.0); Chloride 112 mmol/L (98-107); Creatinine Clearance Estimated 22 mL/min (50-200); Estimated Glomerular Filt Rate 22 ml/min (>60); GFR (African American) 26 ML/MIN (>60); Globulin 3.1 g/dL (1.3-3.2); Glucose 101 mg/dl (74-100); Magnesium 1.3 mg/dl (1.6-2.3); Potassium 5.1 mmoL/L (3.5-5.1); Sodium 139 mmol/L (136-145); Total Protein,Serum 6.3 g/dl (6.3-8.2)
[2024-06-28 07:36] LABS: Bilirubin,Total 0.1 mg/dl (0.2-1.3)
[2024-06-28 07:38] LABS: C-Reactive Protein 21.6 mg/L (0-4)
[2024-06-28 07:48] LABS: Procalcitonin 0.179 ng/mL (0.0-2.0)
[2024-06-28] MEDS: MAGNESIUM SULFATE IN WATER 2 GM/50 ML PIGGYBACK IV (08:43)
--- NOTE | 2024-06-28 09:35 | SW/DCPLANNER ---
Addendum entered by [facility] 07/03/24 10:07: Per Jose Max they can accept this patient SNF level of care. I have updated patient, daughter and MD. Patient will discharge today. Addendum entered by [facility] 07/03/24 08:13: Updated patient information faxed to [facility]. I will wait to hear back from Jose Max regarding acceptance for today. Addendum entered by [facility] 06/30/24 13:14: Updated patient information faxed to [facility]. Addendum entered by [facility] 06/30/24 13:10: [facility] at bedside to evaluate patient. Adry stated that she can not accept patient until she is less confused. I updated patient's nurse (Keli Rievra) that stated that patient may be ready tomorrow pending no setbacks. I have requested that Eva follow up w/ Ad[facility] tomorrow morning. Addendum entered by [facility] 06/29/24 15:18: Updated patient information faxed to [facility]/ Arsalan Max. Addendum entered by [facility] 06/28/24 12:35: Per [facility]/ Arsalan Max she can accept this patient on Friday 06/30 SNF level of care. I will update patient, family and MD. Original Note: I spoke w/ this patient regarding plans once medically stable for discharge. PT/OT evaluated patient yesterday and recommended SNF level of care. Patient and daughter discussed together and they are agreeable to placement short term at [facility]. Patient information will be faxed to [facility] this AM. Discharge date is unknown at this time.
[2024-06-28 11:16] LABS: POC Glucose,Bedside 97 (70-110)
[2024-06-28] MEDS: NOREPINEPHRINE BITARTRATE/D5W 8 MG/250 ML PLAST..BAG 1.88 MG IV (16:16)
[2024-06-28 16:51] LABS: POC Glucose,Bedside 79 (70-110)
--- NOTE | 2024-06-28 17:09 | PC.NURSE ---
Pt is A&O x4. She remains on Levophed. Currently infusing @ 1 mcg/min. She has ambulated in room to BSC and to chair this shift with this nurse and SRNA. Ambulated outside of room with OT/PT this shift. Has participated with her bed bath. Tolerated well. She is currently sitting up in the chair eating dinner. VS are currently stable. Appetite is good. Pt has voided via BSC. No BM this shift. Call light within reach. Daughter is at bedside.
[2024-06-28] MEDS: CEFTRIAXONE SODIUM 2 GM in 0.9 % SODIUM CHLORIDE 100 ML IV (20:05)
--- NOTE | 2024-06-28 21:38 | EXP.PN ---
Subjective *Date: 06/28/24 *Time: 21:38 Exam Data for Last 24 hours Vital signs and Labs for Last 24 Hours: Temp Pulse Resp BP Pulse Ox O2 Del Method O2 Flow Rate 98.6 F 92 H 19 98/56 L 98 Room Air 2 06/28/24 15:45 06/28/24 18:01 06/28/24 18:01 06/28/24 18:15 06/28/24 18:01 06/28/24 18:40 06/27/24 03:00 Laboratory Results - last 24 hr 06/28/24 05:36: WBC 7.5 D, RBC 3.31 L, Hgb 8.7 L, Hct 27.6 L, MCV 83.4, MCH 26.3 L, MCHC 31.5 L, RDW 14.3, Plt Count 354, MPV 9.1, Neut % (Auto) 68.3, Lymph % (Auto) 21.0, [place] % (Auto) 5.6, Eos % (Auto) 4.0, Baso % (Auto) 0.8, Neut # (Auto) 5.2, Lymph # (Auto) 1.6, [place] # (Auto) 0.4, Eos # (Auto) 0.3, Baso # (Auto) 0.1, Sodium 139, Potassium 5.1, Chloride 112 H, Carbon Dioxide 20 L, Anion Gap 12.1, BUN 39 H, Creatinine 2.20 H D, Estimated Creat Clear 22, Estimated GFR 22 L, Est GFR ( Amer) 26 L D, Glucose 101 H D, Calcium 9.7, Magnesium 1.3 L, Total Bilirubin 0.1 L, AST 23 D, ALT 10 L, Alkaline Phosphatase 68, C-Reactive Protein 21.6 H, Total Protein 6.3, Albumin 3.2 L D, Globulin 3.1, Albumin/Globulin Ratio 1.0 L, Procalcitonin 0.179 06/28/24 06:12: POC Glucose 96 06/28/24 11:08: POC Glucose 97 06/28/24 16:33: POC Glucose 79 I & O for Last 24 hours: Intake & Output 06/25/24 06/26/24 06/27/24 06/28/24 23:59 23:59 23:59 23:59 Intake Total 2231.575 / 2231.575 1591.078 / 1591.078 Output Total 150 / 150 3475 / 3475 3550 / 3550 Balance -150 / -150 -1243.425 / -1243.425 -1957.922 / -1957.2 Weight 56.699 kg 59 kg 60.28 kg Microbiology Reports for the Last 24 Hours: Microbiology 06/27/24 17:49 Anus CRE Surveillance Culture - Final No growth. 06/26/24 23:35 Urine,Clean Catch Urine Culture - Final No growth. 06/27/24 01:19 Blood Blood Culture - Preliminary NO GROWTH AFTER 24 HOURS 06/27/24 01:19 Blood Blood Culture - Preliminary NO GROWTH AFTER 24 HOURS Constitutional Constitutional: no acute distress *Routine HEENT Exam Head: Present normocephalic Eye: Present EOMI and PERRL ENT: Present mucous membranes moist *Routine Neck Exam Neck: Present supple; Absent lymphadenopathy *Routine Respiratory Exam Respiratory: Present CTA bilaterally *Routine Cardiovascular Exam Cardiovascular: Present RRR *Routine Abdominal Exam Abdominal: Present soft and normoactive bowel sounds; Absent tenderness *Routine Extremities Exam Extremities: Absent cyanosis, clubbing or edema *Routine Skin Exam Skin: Present warm; Absent rash *Routine Neurological Exam Neurological: Present alert and oriented X3 Assessment and Plan *Assessment and plan (1) Sepsis with acute organ dysfunction and septic shock: Status: Acute Qualifiers: Sepsis type: sepsis due to unspecified organism Severe sepsis acute organ dysfunction type: unspecified Qualified Code(s): A41.9 - Sepsis, unspecified organism; R65.21 - Severe sepsis with septic shock Category: Medical Code(s): A41.9 - Sepsis, unspecified organism; R65.21 - Severe sepsis with septic shock (2) Acute renal failure: Status: Acute Qualifiers: Acute renal failure type: with acute tubular necrosis Qualified Code(s): N17.0 - Acute kidney failure with tubular necrosis Category: Medical Code(s): N17.9 - Acute kidney failure, unspecified (3) Acute cystitis: Status: Acute Qualifiers: Hematuria presence: without hematuria Qualified Code(s): N30.00 - Acute cystitis without hematuria Category: Medical Code(s): N30.00 - Acute cystitis without hematuria (4) Hypoglycemia: Status: Acute Category: Medical Code(s): E16.2 - Hypoglycemia, unspecified (5) Respiratory alkalosis: Status: Acute Category: Medical Code(s): E87.3 - Alkalosis (6) Metabolic acidosis: Status: Acute Category: Medical Code(s): E87.20 - Acidosis, unspecified (7) Breast cancer, left breast: Status: Acute Qualifiers: Breast location: unspecified site of breast Estrogen receptor status: positive Patient sex: female Qualified Code(s): C50.912 - Malignant neoplasm of unspecified site of left female breast; Z17.0 - Estrogen receptor positive status [ER+] Category: Medical Code(s): C50.912 - Malignant neoplasm of unspecified site of left female breast (8) Grief: Status: Acute Category: Medical Code(s): F43.21 - Adjustment disorder with depressed mood (9) Hyperkalemia: Status: Acute Category: Medical Code(s): E87.5 - Hyperkalemia (10) Severe protein-calorie malnutrition: Status: Acute Category: Medical Code(s): E43 - Unspecified severe protein-calorie malnutrition Plan Case discussed with ER physician, request admission for septic shock and acute organ dysfunction including renal failure, hyperkalemia, urinary tract infection with suspected pyelonephritis. Medicine agreed to admit after stabilization in the ER. Patient critically ill necessitating ICU treatment. Monitoring electrolytes closely. Repeat CBC, CMP, magnesium and procalcitonin ordered for the morning. #Acute renal failure with ATN #Hyperkalemia #Hypotension New acute renal failure likely secondary to severe dehydration. Reports poor oral intake over the last week with substantial weight loss over the last year. Initial potassium today of 8.5--7.1--4.7-5.1 (after medical treatment modalities) Continue IV hydration Strict intake and output, Chaudhari catheter in place. Currently with 75 mL liters per hour output Renal function improved. Initial creatinine 4.5 with improvement to 3.5 -> 2.2 Repeat BMP in a.m. Avoid nephrotoxic medications Hypotension initally thought to be infection, but no source identified. UC, BC unremarkable as well. Continue to wean Levophed, requiring 1mcg currently. Continue rocephin for now. #T2DM #Hypoglycemia Glucose of 42 on chemistry, now improved into the 150s. Weaned off D10 today. #Severe protein calorie malnutrition Substantial weight loss. At some point this year weighed approximately 300 pounds now down to 122. Megace started by PCP, will continue #Grief, depression Significant stressors in patient's life Complicating all aspects of care
[2024-06-29] VITALS (30 sets, daily range): BP systolic 87–142; BP diastolic 46–77; PULSE 55–111; RESP 12–19; TEMP 36.6–36.8; O2SAT 94–100; BMI 20.4
[2024-06-29 00:30] LABS: POC Glucose,Bedside 64 (70-110)
[2024-06-29 00:30] LABS: POC Glucose,Bedside 93 (70-110)
[2024-06-29 02:20] LABS: POC Glucose,Bedside 76 (70-110)
[2024-06-29] MEDS: Dextrose 5 % and 0.9 % NaCl 1,000 ML 75 ML IV (02:30)
--- NOTE | 2024-06-29 03:02 | EXP.EVENT.NO ---
Patient with waxing and waning Levophed needs. Was able to come off Levophed briefly but eventually needed to be placed back on 2 mics. Also noted to have downtrending glucoses. Patient self reports that she has not been able to eat or drink very much because she just does not have an appetite. Patient is -3.5 L at this time. Will initiate D5 NS at 75 for nutritional support as well as IV hydration overnight. Patient is otherwise doing well.'s reports feeling improved.
[2024-06-29 06:06] LABS: POC Glucose,Bedside 110 (70-110)
[2024-06-29] MEDS: LEVOTHYROXINE 50MCG (0.05MG) TAB 50 MCG PO (06:07)
[2024-06-29 06:18] LABS: Alanine Aminotransferase 9 U/L (12-78); Albumin Level 3.1 g/dl (3.5-5.0); Aspartate Amino Transferase 16 U/L (14-36); Blood Urea Nitrogen 23 mg/dl (7-17); Calcium 9.6 mg/dl (8.4-10.2); Carbon Dioxide 23 mmol/L (22.0-30.0); Chloride 109 mmol/L (98-107); Creatinine Clearance Estimated 30 mL/min (50-200); Estimated Glomerular Filt Rate 37 ml/min (>60); GFR (African American) 45 ML/MIN (>60); Glucose 109 mg/dl (74-100); Magnesium 1.4 mg/dl (1.6-2.3); Sodium 138 mmol/L (136-145); Total Protein,Serum 6.1 g/dl (6.3-8.2)
[2024-06-29 06:48] LABS: Anion Gap 10.3 mEq/L (5-15); Potassium 4.3 mmoL/L (3.5-5.1)
[2024-06-29 06:49] LABS: Alkaline Phosphatase 63 U/L (38-126); Bilirubin,Total 0.2 mg/dl (0.2-1.3)
[2024-06-29 06:57] LABS: Basophils # 0.1 K/mm3 (0-0.2); Basophils % 0.9 % (0.1-2.0); Eosinophils # 0.5 K/mm3 (0.0-0.4); Eosinophils % 7.6 % (0.1-12.0); Hematocrit 27.2 % (37.0-47.0); Hemoglobin 8.8 g/dL (12.2-16.2); Lymphocytes # 1.6 K/mm3 (0.7-4.5); Lymphocytes % 24.4 % (10-50); Mean Corpuscular HGB Conc 32.4 g/dL (31.8-35.4); Mean Corpuscular Hemoglobin 26.7 pg (27.0-31.2); Mean Corpuscular Volume 82.7 fl (81-99); Mean Platelet Volume 9.6 fl (7.4-10.4); Monocytes # 0.4 K/mm3 (0.1-1.0); Monocytes % 6.4 % (1.7-9.3); Neutrophils % 60.4 % (37.0-80.0); Platelet Count 355 K/mm3 (142-424); Red Blood Count 3.29 M/mm3 (4.20-5.40); Red Cell Distribution Width 14.1 % (11.5-17.5); White Blood Count 6.7 K/mm3 (4.8-10.8)
--- NOTE | 2024-06-29 09:00 | PC.NURSE ---
Per Dr. Morales this nurse was instructed to discontinue the pts D5W infusion and encourage oral intake today with glucose monitoring. He also ordered nurse to titrate Levophed down aggressively in order to get the patient off of the medication. Will titrate per protocol and pt toleration.
[2024-06-29 13:18] LABS: POC Glucose,Bedside 94 (70-110)
--- NOTE | 2024-06-29 13:18 | PC.NURSE ---
pt ambulated from her room (261) to the bathroom with a walker and standby assist. tolerated well.
--- NOTE | 2024-06-29 16:22 | PC.NURSE ---
pt POC glucose is 71 at this time. pt given a mt dew and a chicken salad sandwich. MD notified. no new orders
--- NOTE | 2024-06-29 17:32 | PC.NURSE ---
patient is currently alert and oriented x 3 but has been increasingly confused throughout the day. slot shift supervisor nurse reported that the patient had maybe 2-3 hours of sleep throughout the night and despite multiple efforts the patient has slept much throughout the day either. MD notified of this and reported he will add medication for sleep tonight. Pt has remained off levophed and D5W infusion throughout the day as well and maintained a map above 65. Pt has had a decrease in appetite and needed reminding to eat meals. Pt was able to ambulate throughout the unit to the bathroom with a walker. Tolerated well. pt is currently resting. call light in reach. no complaints at this time.
[2024-06-29 17:37] LABS: POC Glucose,Bedside 71 (70-110)
[2024-06-29 19:40] LABS: POC Glucose,Bedside 70 (70-110)
[2024-06-29] MEDS: CEFTRIAXONE SODIUM 2 GM in 0.9 % SODIUM CHLORIDE 100 ML IV (21:12)
[2024-06-29] MEDS: MELATONIN 5MG TABLET 5 MG PO (21:12)
--- NOTE | 2024-06-29 22:09 | P.PN_ITS ---
Subjective *Date: 06/29/24 *Time: 22:09 Exam Data for Last 24 hours Vital signs and Labs for Last 24 Hours: Temp Pulse Resp BP Pulse Ox O2 Del Method O2 Flow Rate 98.1 F 67 17 108/53 L 97 Room Air 2 06/29/24 20:00 06/29/24 18:00 06/29/24 18:00 06/29/24 18:00 06/29/24 18:00 06/29/24 18:00 06/27/24 03:00 Laboratory Results - last 24 hr 06/28/24 23:36: POC Glucose 64 L 06/29/24 00:19: POC Glucose 93 06/29/24 02:13: POC Glucose 76 06/29/24 05:32: WBC 6.7, RBC 3.29 L, Hgb 8.8 L, Hct 27.2 L, MCV 82.7, MCH 26.7 L , MCHC 32.4, RDW 14.1, Plt Count 355, MPV 9.6, Neut % (Auto) 60.4, Lymph % (Auto) 24.4, [place] % (Auto) 6.4, Eos % (Auto) 7.6, Baso % (Auto) 0.9, Neut # (Auto) 4.0, Lymph # (Auto) 1.6, [place] # (Auto) 0.4, Eos # (Auto) 0.5 H, Baso # (Auto) 0.1, Sodium 138, Potassium 4.3, Chloride 109 H, Carbon Dioxide 23, Anion Gap 10.3, BUN 23 H D, Creatinine 1.40 H D, Estimated Creat Clear 30, Estimated GFR 37 L, Est GFR ( Amer) 45 L D, Glucose 109 H, Calcium 9.6, Magnesium 1.4 L, Total Bilirubin 0.2, AST 16 D, ALT 9 L, Alkaline Phosphatase 63, Total Protein 6.1 L, Albumin 3.1 L, Globulin 3.0, Albumin/Globulin Ratio 1.0 L 06/29/24 05:58: POC Glucose 110 06/29/24 13:11: POC Glucose 94 06/29/24 16:16: POC Glucose 71 06/29/24 19:28: POC Glucose 70 I & O for Last 24 hours: Intake & Output 06/26/24 06/27/24 06/28/24 06/29/24 23:59 23:59 23:59 23:59 Intake Total 2231.575 / 2231.575 1848.266 / 2088.266 884.321 / 884.321 Output Total 150 / 150 3475 / 3475 3950 / 3950 1100 / 1100 Balance -150 / -150 -1243.425 / -1243.425 -2101.734 / -1861.734 -215.679 / - 215.679 Weight 56.699 kg 59 kg 60.28 kg 53.637 kg Microbiology Reports for the Last 24 Hours: Microbiology 06/27/24 01:19 Blood Blood Culture - Preliminary NO GROWTH AFTER 48 HOURS 06/27/24 01:19 Blood Blood Culture - Preliminary NO GROWTH AFTER 48 HOURS Constitutional Constitutional: no acute distress *Routine HEENT Exam Head: Present normocephalic Eye: Present EOMI and PERRL ENT: Present mucous membranes moist *Routine Neck Exam Neck: Present supple; Absent lymphadenopathy *Routine Respiratory Exam Respiratory: Present CTA bilaterally *Routine Cardiovascular Exam Cardiovascular: Present RRR *Routine Abdominal Exam Abdominal: Present soft and normoactive bowel sounds; Absent tenderness *Routine Extremities Exam Extremities: Absent cyanosis, clubbing or edema *Routine Skin Exam Skin: Present warm; Absent rash *Routine Neurological Exam Neurological: Present alert and oriented X3 Assessment and Plan *Assessment and plan (1) Sepsis with acute organ dysfunction and septic shock: Status: Acute Qualifiers: Sepsis type: sepsis due to unspecified organism Severe sepsis acute organ dysfunction type: unspecified Qualified Code(s): A41.9 - Sepsis, unspecified organism; R65.21 - Severe sepsis with septic shock Category: Medical Code(s): A41.9 - Sepsis, unspecified organism; R65.21 - Severe sepsis with septic shock (2) Acute renal failure: Status: Acute Qualifiers: Acute renal failure type: with acute tubular necrosis Qualified Co de(s): N17.0 - Acute kidney failure with tubular necrosis Category: Medical Code(s): N17.9 - Acute kidney failure, unspecified (3) Acute cystitis: Status: Acute Qualifiers: Hematuria presence: without hematuria Qualified Code(s): N30.00 - Acute cystitis without hematuria Category: Medical Code(s): N30.00 - Acute cystitis without hematuria (4) Hypoglycemia: Status: Acute Category: Medical Code(s): E16.2 - Hypoglycemia, unspecified (5) Respiratory alkalosis: Status: Acute Category: Medical Code(s): E87.3 - Alkalosis (6) Metabolic acidosis: Status: Acute Category: Medical Code(s): E87.20 - Acidosis, unspecified (7) Breast cancer, left breast: Status: Acute Qualifiers: Breast location: unspecified site of breast Estrogen receptor status: positive Patient sex: female Qualified Code(s): C50.912 - Malignant neoplasm of unspecified site of left female breast; Z17.0 - Estrogen receptor positive status [ER+] Category: Medical Code(s): C50.912 - Malignant neoplasm of unspecified site of left female breast (8) Grief: Status: Acute Category: Medical Code(s): F43.21 - Adjustment disorder with depressed mood (9) Hyperkalemia: Status: Acute Category: Medical Code(s): E87.5 - Hyperkalemia (10) Severe protein-calorie malnutrition: Status: Acute Category: Medical Code(s): E43 - Unspecified severe protein-calorie malnutrition Plan Case discussed with ER physician, request admission for septic shock and acute organ dysfunction including renal failure, hyperkalemia. Medicine agreed to admit after stabilization in the ER. #Acute renal failure with ATN #Hyperkalemia #Hypotension #Hypoglycemia, T2DM New acute renal failure likely secondary to severe dehydration. Reports poor oral intake over the last week with substantial weight loss over the last year. - Clinically improved with aggressive IV and oral fluid resuscitation. - Creatnine 1.4 today, peak 4.5. Potassium normal today. - Weaned off Levophed this morning with stable pressures. - Continues to intermittent hypoglycemia in the 60s. - There is some suspicion of adrenal insufficiency, however was able to wean Levophed and sugars are improving. Will hold off on stress dose steroids for now. Follow-up cortisol, ACTH levels. - Initially thought to be septic shock from UTI, but urine culture normal. However, will continue ceftriaxone for a 5 day course given grossly abnormal UA. #Severe protein calorie malnutrition Substantial weight loss. At some point this year weighed approximately 300 pounds now down to 122. Megace started by PCP, will continue #Grief, depression Significant stressors in patient's life Complicating all aspects of care
[2024-06-30] VITALS (10 sets, daily range): BP systolic 95–127; BP diastolic 48–69; PULSE 58–116; RESP 14–22; TEMP 36.4–36.8; O2SAT 96–100; BMI 21.3
[2024-06-30] MEDS: OLANZapine 5 MG ODT TABLET SL (00:18)
[2024-06-30 00:28] LABS: POC Glucose,Bedside 78 (70-110)
[2024-06-30 05:42] LABS: POC Glucose,Bedside 70 (70-110)
[2024-06-30] MEDS: LEVOTHYROXINE 50MCG (0.05MG) TAB 50 MCG PO (06:28)
--- NOTE | 2024-06-30 06:47 | PC.NURSE ---
Alert to self, patient confused throughout the shift. Daughter remained at the bedside. Patient tried multiple times to get out of the bed, bed alarm on. Pt takes medications and follows commands. Glucoses have been reported to Marycarmen Trujillo APRN. PRN medication for agitation given per AUG. Room air. No complaints of pain. Call light in reach.
[2024-06-30 07:17] LABS: Basophils % 0.7 % (0.1-2.0); Eosinophils # 0.4 K/mm3 (0.0-0.4); Eosinophils % 6.5 % (0.1-12.0); Hematocrit 27.3 % (37.0-47.0); Hemoglobin 8.7 g/dL (12.2-16.2); Lymphocytes # 1.8 K/mm3 (0.7-4.5); Lymphocytes % 32.3 % (10-50); Mean Corpuscular HGB Conc 31.9 g/dL (31.8-35.4); Mean Corpuscular Hemoglobin 26.4 pg (27.0-31.2); Mean Platelet Volume 9.4 fl (7.4-10.4); Monocytes # 0.3 K/mm3 (0.1-1.0); Monocytes % 5.6 % (1.7-9.3); Neutrophils % 54.5 % (37.0-80.0); Platelet Count 346 K/mm3 (142-424); Red Blood Count 3.29 M/mm3 (4.20-5.40); Red Cell Distribution Width 14.2 % (11.5-17.5); White Blood Count 5.5 K/mm3 (4.8-10.8)
[2024-06-30 07:36] LABS: Alanine Aminotransferase 10 U/L (12-78); Albumin Level 3.2 g/dl (3.5-5.0); Alkaline Phosphatase 66 U/L (38-126); Anion Gap 11.8 mEq/L (5-15); Aspartate Amino Transferase 27 U/L (14-36); Blood Urea Nitrogen 14 mg/dl (7-17); Calcium 9.6 mg/dl (8.4-10.2); Carbon Dioxide 23 mmol/L (22.0-30.0); Chloride 108 mmol/L (98-107); Creatinine Clearance Estimated 40 mL/min (50-200); Estimated Glomerular Filt Rate 49 ml/min (>60); GFR (African American) 59 ML/MIN (>60); Globulin 3.2 g/dL (1.3-3.2); Glucose 73 mg/dl (74-100); Magnesium 1.2 mg/dl (1.6-2.3); Potassium 3.8 mmoL/L (3.5-5.1); Sodium 139 mmol/L (136-145); Total Protein,Serum 6.4 g/dl (6.3-8.2)
[2024-06-30 07:37] LABS: Bilirubin,Total 0.1 mg/dl (0.2-1.3)
[2024-06-30] MEDS: MAGNESIUM SULFATE IN WATER 2 GM/50 ML PIGGYBACK IV (09:22)
[2024-06-30] MEDS: HYDROCORTISONE SOD SUCCINATE 100MG VIAL 100 MG IV (11:18)
[2024-06-30 11:29] LABS: MRSA DNA PCR NEGATIVE
[2024-06-30] MEDS: HALOPERIDOL LACTATE 5 MG/ML VIAL IV (11:51)
[2024-06-30 14:10] LABS: Adrenocorticotropic Hormone 24.5 pg/mL (7.2-63.3)
[2024-06-30 15:34] LABS: Free T4 (Free Thyroxine) 1.62 ng/dl (0.78-2.19)
[2024-06-30 17:02] LABS: POC Glucose,Bedside 149 (70-110)
[2024-06-30 17:08] LABS: Legionella pneumophila Urinary Negative (Negative)
--- NOTE | 2024-06-30 17:29 | P.PN_ITS ---
Subjective *Date: 06/30/24 *Time: 17:42 Exam Data for Last 24 hours Vital signs and Labs for Last 24 Hours: Temp Pulse Resp BP Pulse Ox O2 Del Method O2 Flow Rate 98.1 F 82 22 127/66 96 Room Air 2 06/30/24 16:00 06/30/24 16:00 06/30/24 16:00 06/30/24 16:00 06/30/24 16:00 06/30/24 17:00 06/27/24 03:00 Laboratory Results - last 24 hr 06/27/24 00:00: Ur L.pneumophila Ag Negative 06/27/24 03:45: MRSA (PCR) Negative 06/29/24 08:08: Cortisol 19.3, ACTH 24.5 06/29/24 16:16: POC Glucose 71 06/29/24 19:28: POC Glucose 70 06/30/24 00:20: POC Glucose 78 06/30/24 05:26: POC Glucose 70 06/30/24 05:46: WBC 5.5, RBC 3.29 L, Hgb 8.7 L, Hct 27.3 L, MCV 83.0, MCH 26.4 L , MCHC 31.9, RDW 14.2, Plt Count 346, MPV 9.4, Neut % (Auto) 54.5, Lymph % (Auto) 32.3, [place] % (Auto) 5.6, Eos % (Auto) 6.5, Baso % (Auto) 0.7, Neut # (Auto) 3.0, Lymph # (Auto) 1.8, [place] # (Auto) 0.3, Eos # (Auto) 0.4, Baso # (Auto) 0.0, Sodium 139, Potassium 3.8, Chloride 108 H, Carbon Dioxide 23, Anion Gap 11.8, BUN 14 D, Creatinine 1.10 H D, Estimated Creat Clear 40, Estimated GFR 49 L, Est GFR ( Amer) 59 D, Glucose 73 L, Calcium 9.6, Magnesium 1.2 L D, Total Bilirubin 0.1 L, AST 27 D, ALT 10 L, Alkaline Phosphatase 66, Total Protein 6.4, Albumin 3.2 L, Globulin 3.2, Albumin/Globulin Ratio 1.0 L, Free T4 1.62 06/30/24 16:55: POC Glucose 149 H I & O for Last 24 hours: Intake & Output 06/27/24 06/28/24 06/29/24 06/30/24 23:59 23:59 23:59 23:59 Intake Total 2231.575 / 2231.575 1848.266 / 2088.266 884.321 / 1164.321 550 / 550 Output Total 3475 / 3475 3950 / 3950 1100 / 1100 0 / 0 Balance -1243.425 / -1243.425 -2101.734 / -1861.734 -215.679 / 64.321 550 / 550 Weight 59 kg 60.28 kg 53.637 kg 55.973 kg Constitutional Constitutional: no acute distress *Routine HEENT Exam Head: Present normocephalic Eye: Present EOMI and PERRL ENT: Present mucous membranes moist *Routine Neck Exam Neck: Present supple; Absent lymphadenopathy *Routine Respiratory Exam Respiratory: Present CTA bilaterally *Routine Cardiovascular Exam Cardiovascular: Present RRR *Routine Abdominal Exam Abdominal: Present soft and normoactive bowel sounds; Absent tenderness *Routine Extremities Exam Extremities: Absent cyanosis, clubbing or edema *Routine Skin Exam Skin: Present warm; Absent rash *Routine Neurological Exam Neurological: Present alert and oriented X3 Assessment and Plan *Assessment and plan (1) Sepsis with acute organ dysfunction and septic shock: Status: Acute Qualifiers: Sepsis type: sepsis due to unspecified organism Severe sepsis acute organ dysfunction type: unspecified Qualified Code(s): A41.9 - Sepsis, unspecified organism; R65.21 - Severe sepsis with septic shock Category: Medical Code(s): A41.9 - Sepsis, unspecified organism; R65.21 - Severe sepsis with septic shock (2) Acute renal failure: Status: Acute Qualifiers: Acute renal failure type: with acute tubular necrosis Qualified Code(s): N17.0 - Acute kidney failure with tubular necrosis Category: Medical Code(s): N17.9 - Acute kidney failure, unspecified (3) Acute cystitis: Status: Acute Qualifiers: Hematuria presence: without hematuria Qualified Code(s): N30.00 - Acute cystitis without hematuria Category: Medical Code(s): N30.00 - Acute cystitis without hematuria (4) Hypoglycemia: Status: Acute Category: Medical Code(s): E16.2 - Hypoglycemia, unspecified (5) Respiratory alkalosis: Status: Acute Category: Medical Code(s): E87.3 - Alkalosis (6) Metabolic acidosis: Status: Acute Category: Medical Code(s): E87.20 - Acidosis, unspecified (7) Breast cancer, left breast: Status: Acute Qualifiers: Breast location: unspecified site of breast Estrogen receptor status: positive Patient sex: female Qualified Code(s): C50.912 - Malignant neoplasm of unspecified site of left female breast; Z17.0 - Estrogen receptor positive status [ER+] Category: Medical Code(s): C50.912 - Malignant neoplasm of unspecified site of left female breast (8) Grief: Status: Acute Category: Medical Code(s): F43.21 - Adjustment disorder with depressed mood (9) Hyperkalemia: Status: Acute Category: Medical Code(s): E87.5 - Hyperkalemia (10) Severe protein-calorie malnutrition: Status: Acute Category: Medical Code(s): E43 - Unspecified severe protein-calorie malnutrition Plan Case discussed with ER physician, request admission for septic shock and acute organ dysfunction including renal failure, hyperkalemia. Medicine agreed to admit after stabilization in the ER. #Acute renal failure with ATN #Hyperkalemia #Hypotension #Hypoglycemia, T2DM #Poor appetite #Severe protein calorie malnutrition New acute renal failure likely secondary to severe dehydration. Reports poor oral intake over the last week with substantial weight loss over the last year. - Clinically improved with aggressive IV and oral fluid resuscitation. - Creatnine 1.1 today, peak 4.5. Potassium 3.8 today, peaked at 8.5. - Has been weaned off Levophed 06/29/2024. - Sugars have improved, currently stable in 100s, though morning sugar was 74. ? Patient continues to have poor appetite, barely eating much food. Workup so far has been unremarkable including metabolic, TSH, infectious, cortisol, ACTH. CT chest/abdomen/pelvis unremarkable for cancer burden. ? There was initially suspicion of adrenal insufficiency given hypotension, hypoglycemia, poor oral intake for many months. However, morning cortisol, ACTH returned as normal today. IV hydrocortisone was given today, will not continue. - Initially thought to be septic shock from UTI, but urine culture normal. How ever, will continue ceftriaxone for a 5 day course given grossly abnormal UA. Discontinue tomorrow. ? Started mirtazapine 7.5 mg nightly for appetite, mood. ? Resumed home zolpidem 10 mg as patient has not 2 days due to withdrawal effects. ? Patient will benefit from GI evaluation outpatient for idiopathic poor appetite. #Grief, depression Significant stressors in patient's life Complicating all aspects of care ? Resumed home mirtazapine 7.5 mg nightly.
--- NOTE | 2024-06-30 18:25 | PC.NURSE ---
PT IS RESTING IN BED. ALERT TO SELF ONLY. PT HAS BEEN CONFUSED AND AGITATED OFF AND ON T/O THE SHIFT. APPETITE HAS BEEN POOR. PT TOLERATED SITTING UP IN THE CHAIR FOR SEVERAL HOURS THIS SHIFT. FAMILY STATES PT HAS NOT SLEPT IN 2 DAYS. PT HAD A ONE TIME DOSE OF HALDOL THIS SHIFT THAT DID HELP WITH AGITATION HOWEVER PT DID NOT REST AT ALL. LUNG SOUNDS CLEAR. ABDOMEN SOFT/NON TENDER WITH ACTIVE BOWEL SOUNDS. WILL CONTINUE TO MONITOR.
[2024-06-30] MEDS: CEFTRIAXONE SODIUM 2 GM in 0.9 % SODIUM CHLORIDE 100 ML IV (20:13)
[2024-06-30] MEDS: MIRTAZAPINE 15 MG TABLET 7.5 MG PO (20:13)
[2024-06-30] MEDS: MELATONIN 5MG TABLET 5 MG PO (20:13)
[2024-06-30] MEDS: ZOLPIDEM TARTRATE 10 MG TABLET 5 MG PO (20:15)
[2024-06-30 21:41] LABS: POC Glucose,Bedside 159 (70-110)
[2024-07-01] VITALS: BP 110/56; PULSE 64; RESP 17; TEMP 36.8; O2SAT 100
[2024-07-01 04:00] VITALS: BP 122/68; PULSE 72; RESP 16; TEMP 36.4; O2SAT 100; BMI 20.4
--- NOTE | 2024-07-01 05:35 | PC.NURSE ---
Pt has had a 1 on 1 sitting for the night. She has done much much better tonight and has been able to sleep! she did get a bed bath and has been up to void. no other issues or complaints tonight
[2024-07-01] MEDS: LEVOTHYROXINE 50MCG (0.05MG) TAB 50 MCG PO (06:47)
[2024-07-01 06:57] LABS: POC Glucose,Bedside 67 (70-110)
[2024-07-01 07:43] LABS: Basophils % 0.3 % (0.1-2.0); Eosinophils # 0.2 K/mm3 (0.0-0.4); Eosinophils % 2.6 % (0.1-12.0); Hematocrit 29.4 % (37.0-47.0); Hemoglobin 9.5 g/dL (12.2-16.2); Lymphocytes # 2.5 K/mm3 (0.7-4.5); Lymphocytes % 40.2 % (10-50); Mean Corpuscular HGB Conc 32.3 g/dL (31.8-35.4); Mean Corpuscular Hemoglobin 26.9 pg (27.0-31.2); Mean Corpuscular Volume 83.3 fl (81-99); Mean Platelet Volume 8.8 fl (7.4-10.4); Monocytes # 0.4 K/mm3 (0.1-1.0); Monocytes % 6.1 % (1.7-9.3); Neutrophils # 3.1 K/mm3 (1.8-7.8); Neutrophils % 50.5 % (37.0-80.0); Platelet Count 416 K/mm3 (142-424); Red Blood Count 3.53 M/mm3 (4.20-5.40); Red Cell Distribution Width 14.3 % (11.5-17.5); White Blood Count 6.1 K/mm3 (4.8-10.8)
[2024-07-01 08:30] LABS: Alanine Aminotransferase 12 U/L (12-78); Alkaline Phosphatase 63 U/L (38-126); Aspartate Amino Transferase 22 U/L (14-36); Blood Urea Nitrogen 13 mg/dl (7-17); Calcium 9.8 mg/dl (8.4-10.2); Chloride 106 mmol/L (98-107); Creatinine Clearance Estimated 42 mL/min (50-200); Estimated Glomerular Filt Rate 61 ml/min (>60); GFR (African American) 74 ML/MIN (>60); Glucose 75 mg/dl (74-100); Magnesium 1.7 mg/dl (1.6-2.3); Sodium 140 mmol/L (136-145); Total Protein,Serum 6.9 g/dl (6.3-8.2)
[2024-07-01 08:31] LABS: Albumin Level 3.6 g/dl (3.5-5.0); Albumin/Globulin Ratio 1.1 (1.1-1.8); Carbon Dioxide 25 mmol/L (22.0-30.0); Globulin 3.3 g/dL (1.3-3.2)
[2024-07-01 08:32] LABS: Bilirubin,Total 0.1 mg/dl (0.2-1.3)
[2024-07-01 08:53] LABS: Anion Gap 12.7 mEq/L (5-15); Potassium 3.7 mmoL/L (3.5-5.1)
[2024-07-01 08:54] VITALS: BP 108/49; PULSE 64; RESP 18; TEMP 36.9; O2SAT 99
--- NOTE | 2024-07-01 09:55 | PC.NURSE ---
pt is well rested. pt had an appetite this morning and enjoyed her breakfast. pt ambulates good with a steady gait. staff is at BS. no needs voiced at this time.
[2024-07-01 12:00] VITALS: BP 95/49; PULSE 74; RESP 19; TEMP 36.7; O2SAT 95
--- NOTE | 2024-07-01 13:32 | PC.NURSE ---
Addendum entered by Amalia Lobo RN 07/01/24 18:30: pt continues to do well and mentation improving Original Note: pt has been pleasant and done well so far this shift. a&o to self, place and year. fsbg have been stable, pts appetite has increased, eating >75% of meals today. daughter currently at bs, cb within reach. no needs or concerns at this time.
[2024-07-01 16:00] VITALS: BP 95/54; PULSE 90; RESP 18; TEMP 37.2; O2SAT 96
[2024-07-01 16:01] LABS: POC Glucose,Bedside 85 (70-110)
--- NOTE | 2024-07-01 18:28 | P.PN_ITS ---
Subjective *Date: 07/01/24 *Time: 18:28 Interval history: Patient feels much better today after sleeping well last night. Eating much better this morning after starting mirtazapine, sleeping well last night. No complaints. Exam Data for Last 24 hours Vital signs and Labs for Last 24 Hours: Temp Pulse Resp BP Pulse Ox O2 Del Method O2 Flow Rate 99.0 F 90 18 95/54 L 96 Room Air 2 07/01/24 16:00 07/01/24 16:00 07/01/24 16:00 07/01/24 16:00 07/01/24 16:00 07/01/24 13:00 06/27/24 03:00 Laboratory Results - last 24 hr 06/30/24 21:34: POC Glucose 159 H 07/01/24 06:50: WBC 6.1, RBC 3.53 L, Hgb 9.5 L, Hct 29.4 L, MCV 83.3, MCH 26.9 L , MCHC 32.3, RDW 14.3, Plt Count 416, MPV 8.8, Neut % (Auto) 50.5, Lymph % (Auto) 40.2, [place] % (Auto) 6.1, Eos % (Auto) 2.6, Baso % (Auto) 0.3, Neut # (Auto) 3.1, Lymph # (Auto) 2.5, [place] # (Auto) 0.4, Eos # (Auto) 0.2, Baso # (Auto) 0.0, Sodium 140, Potassium 3.7, Chloride 106, Carbon Dioxide 25, Anion Gap 12.7, BUN 13, Creatinine 0.90, Estimated Creat Clear 42, Estimated GFR 61, Est GFR ( Amer) 74 D, Glucose 75, POC Glucose 67 L, Calcium 9.8, Magnesium 1.7 D, Total Bilirubin 0.1 L, AST 22, ALT 12, Alkaline Phosphatase 63, Total Protein 6.9, Albumin 3.6 D, Globulin 3.3 H, Albumin/Globulin Ratio 1.1 07/01/24 15:53: POC Glucose 85 I & O for Last 24 hours: Intake & Output 06/28/24 06/29/24 06/30/24 07/01/24 23:59 23:59 23:59 23:59 Intake Total 1848.266 / 2088.266 884.321 / 2967.311 4045 / 1030 660 / 660 Output Total 3950 / 3950 1100 / 1100 0 / 0 0 / 0 Balance -2101.734 / -1861.734 -215.679 / 64.321 1030 / 1030 660 / 660 Weight 60.28 kg 53.637 kg 55.973 kg 53.569 kg Microbiology Reports for the Last 24 Hours: Microbiology 06/27/24 01:19 Blood Blood Culture - Preliminary NO GROWTH AFTER 4 DAYS 06/27/24 01:19 Blood Blood Culture - Preliminary NO GROWTH AFTER 4 DAYS Constitutional Constitutional: no acute distress *Routine Neck Exam Neck: Present supple; Absent lymphadenopathy *Routine Respiratory Exam Respiratory: Present CTA bilaterally *Routine Cardiovascular Exam Cardiovascular: Present RRR *Routine Abdominal Exam Abdominal: Present soft and normoactive bowel sounds; Absent tenderness *Routine Extremities Exam Extremities: Absent cyanosis, clubbing or edema *Routine Skin Exam Skin: Present warm; Absent rash *Routine Neurological Exam Neurological: Present alert and oriented X3 Assessment and Plan *Assessment and plan (1) Sepsis with acute organ dysfunction and septic shock: Status: Acute Qualifiers: Sepsis type: sepsis due to unspecified organism Severe sepsis acute organ dysfunction type: unspecified Qualified Code(s): A41.9 - Sepsis, unspecified organism; R65.21 - Severe sepsis with septic shock Category: Medical Code(s): A41.9 - Sepsis, unspecified organism; R65.21 - Severe sepsis with septic shock (2) Acute renal failure: Status: Acute Qualifiers: Acute renal failure type: with acute tubular necrosis Qualified Code(s): N17.0 - Acute kidney failure with tubular necrosis Category: Medical Code(s): N17.9 - Acute kidney failure, unspecified (3) Acute cystitis: Status: Acute Qualifiers: Hematuria presence: without hematuria Qualified Code(s): N30.00 - Acute cystitis without hematuria Category: Medical Code(s): N30.00 - Acute cystitis without hematuria (4) Hypoglycemia: Status: Acute Category: Medical Code(s): E16.2 - Hypoglycemia, unspecified (5) Respiratory alkalosis: Status: Acute Category: Medical Code(s): E87.3 - Alkalosis (6) Metabolic acidosis: Status: Acute Category: Medical Code(s): E87.20 - Acidosis, unspecified (7) Breast cancer, left breast: Status: Acute Qualifiers: Breast location: unspecified site of breast Estrogen receptor status: positive Patient sex: female Qualified Code(s): C50.912 - Malignant neoplasm of unspecified site of left female breast; Z17.0 - Estrogen receptor positive status [ER+] Category: Medical Code(s): C50.912 - Malignant neoplasm of unspecified site of left female breast (8) Grief: Status: Acute Category: Medical Code(s): F43.21 - Adjustment disorder with depressed mood (9) Hyperkalemia: Status: Acute Category: Medical Code(s): E87.5 - Hyperkalemia (10) Severe protein-calorie malnutrition: Status: Acute Category: Medical Code(s): E43 - Unspecified severe protein-calorie malnutrition Plan Case discussed with ER physician, request admission for septic shock and acute organ dysfunction including renal failure, hyperkalemia. Medicine agreed to admit after stabilization in the ER. #Acute renal failure with ATN #Hyperkalemia #Hypotension #Hypoglycemia, T2DM #Poor appetite #Severe protein calorie malnutrition New acute renal failure likely secondary to severe dehydration. Reports poor oral intake over the last week with substantial weight loss over the last year. - Clinically improved with aggressive IV and oral fluid resuscitation. - Creatnine 1.1 today, peak 4.5. Potassium 3.8 today, peaked at 8.5. - Has been weaned off Levophed 06/29/2024. - Sugars have improved, currently stable in 100s, though morning sugar was 74. ? Initially presented with poor appetite, however responding well to mirtazapine. Workup so far has been unremarkable including metabolic, TSH, infectious, cortisol, ACTH. CT chest/abdomen/pelvis unremarkable for cancer burden. ? There was initially suspicion of adrenal insufficiency given hypotension, hypoglycemia, poor oral intake for many months. However, morning cortisol, ACTH returned as normal today. IV hydrocortisone was given today, will not continue. - Initially thought to be septic shock from UTI, but urine culture normal. However, will continue ceftriaxone for a 5 day course given grossly abnormal UA. Discontinue tomorrow. ? Continue mirtazapine 7.5 mg nightly for appetite, mood. ? Resumed home zolpidem 5 mg, slept very well last night ? Patient will benefit from GI evaluation outpatient for idiopathic poor appetite. #Physical deconditioning ? PT/OT recommended SNF. Currently waiting on [facility] to get back to us to transition care. #Grief, depression Significant stressors in patient's life Complicating all aspects of care ? Resumed home mirtazapine 7.5 mg nightly.
[2024-07-01 20:00] VITALS: BP 125/58; PULSE 81; RESP 16; TEMP 36.9; O2SAT 95
[2024-07-01] MEDS: MIRTAZAPINE 15 MG TABLET 7.5 MG PO (20:38)
[2024-07-01] MEDS: ZOLPIDEM TARTRATE 5 MG TABLET PO (20:38)
[2024-07-01] MEDS: MELATONIN 5MG TABLET 5 MG PO (20:38)
[2024-07-01 21:06] LABS: POC Glucose,Bedside 81 (70-110)
[2024-07-02 04:00] VITALS: BP 121/69; PULSE 100; RESP 20; TEMP 37; O2SAT 99; BMI 20.3
[2024-07-02] MEDS: LEVOTHYROXINE 50MCG (0.05MG) TAB 50 MCG PO (06:37)
[2024-07-02 06:48] LABS: POC Glucose,Bedside 85 (70-110)
--- NOTE | 2024-07-02 06:51 | PC.NURSE ---
Pt has been alert to self, place, and time this shift. She has tolerated room air. She has ambulated to the bathroom with standby assist. She has had no complaints throughout the night. Currently up to chair with call light within reach.
[2024-07-02 08:00] VITALS: BP 129/76; PULSE 87; RESP 17; TEMP 36.8; O2SAT 94
[2024-07-02] MEDS: ASPIRIN EC 81MG TABLET 81 MG PO (08:42)
[2024-07-02 09:10] LABS: Basophils % 0.8 % (0.1-2.0); Eosinophils # 0.3 K/mm3 (0.0-0.4); Eosinophils % 5.5 % (0.1-12.0); Hematocrit 27.4 % (37.0-47.0); Hemoglobin 8.7 g/dL (12.2-16.2); Lymphocytes # 1.1 K/mm3 (0.7-4.5); Lymphocytes % 22.6 % (10-50); Mean Corpuscular HGB Conc 31.8 g/dL (31.8-35.4); Mean Corpuscular Hemoglobin 26.9 pg (27.0-31.2); Mean Corpuscular Volume 84.6 fl (81-99); Mean Platelet Volume 8.8 fl (7.4-10.4); Monocytes # 0.3 K/mm3 (0.1-1.0); Monocytes % 6.3 % (1.7-9.3); Neutrophils # 3.2 K/mm3 (1.8-7.8); Neutrophils % 64.4 % (37.0-80.0); Platelet Count 364 K/mm3 (142-424); Red Blood Count 3.24 M/mm3 (4.20-5.40); Red Cell Distribution Width 14.3 % (11.5-17.5); White Blood Count 4.9 K/mm3 (4.8-10.8)
[2024-07-02 10:06] LABS: Chloride 105 mmol/L (98-107)
[2024-07-02 10:07] LABS: Albumin Level 3.4 g/dl (3.5-5.0); Sodium 136 mmol/L (136-145)
[2024-07-02 10:09] LABS: Alanine Aminotransferase 12 U/L (12-78); Albumin/Globulin Ratio 1.1 (1.1-1.8); Aspartate Amino Transferase 22 U/L (14-36); Blood Urea Nitrogen 12 mg/dl (7-17); Carbon Dioxide 26 mmol/L (22.0-30.0); Creatinine Clearance Estimated 42 mL/min (50-200); Estimated Glomerular Filt Rate 61 ml/min (>60); GFR (African American) 74 ML/MIN (>60); Globulin 3.1 g/dL (1.3-3.2); Total Protein,Serum 6.5 g/dl (6.3-8.2)
[2024-07-02 10:10] LABS: Alkaline Phosphatase 56 U/L (38-126); Calcium 9.7 mg/dl (8.4-10.2); Glucose 128 mg/dl (74-100); Magnesium 1.4 mg/dl (1.6-2.3)
[2024-07-02 10:18] LABS: Bilirubin,Total 0.1 mg/dl (0.2-1.3)
[2024-07-02 11:33] LABS: POC Glucose,Bedside 92 (70-110)
[2024-07-02 12:00] VITALS: BP 128/70; PULSE 103; RESP 20; TEMP 36.9; O2SAT 99
[2024-07-02 14:08] LABS: Insulin Level Total 4.6 uIU/mL (2.6-24.9)
[2024-07-02 16:00] VITALS: BP 114/64; PULSE 101; RESP 17; TEMP 37; O2SAT 94
--- NOTE | 2024-07-02 17:17 | PC.NURSE ---
pt has waxed and weaned with her confusion t/o the day but has been alert to self and time consistently. remains pleasant and uses cb when needed. spoke with daughter earlier in shift and gave an update. no needs or concerns at this time. cb within reach.
--- NOTE | 2024-07-02 17:24 | EXP.PN ---
Subjective *Date: 07/02/24 *Time: 17:24 Interval history: Patient states she is feeling really well. Slept well last night. Eating well. Medically stable for discharge. Pending placement at [facility]. Exam Data for Last 24 hours Vital signs and Labs for Last 24 Hours: Temp Pulse Resp BP Pulse Ox O2 Del Method O2 Flow Rate 98.4 F 103 H 20 128/70 99 Room Air 2 07/02/24 12:00 07/02/24 12:00 07/02/24 12:00 07/02/24 12:00 07/02/24 12:00 07/02/24 15:00 06/27/24 03:00 Laboratory Results - last 24 hr 06/30/24 05:46: Total Insulin 4.6 07/01/24 20:59: POC Glucose 81 07/02/24 06:39: POC Glucose 85 07/02/24 08:35: WBC 4.9, RBC 3.24 L, Hgb 8.7 L, Hct 27.4 L, MCV 84.6, MCH 26.9 L, MCHC 31.8, RDW 14.3, Plt Count 364, MPV 8.8, Neut % (Auto) 64.4, Lymph % (Auto) 22.6, [place] % (Auto) 6.3, Eos % (Auto) 5.5, Baso % (Auto) 0.8, Neut # (Auto) 3.2, Lymph # (Auto) 1.1, [place] # (Auto) 0.3, Eos # (Auto) 0.3, Baso # (Auto) 0.0, Sodium 136, Potassium 4.0, Chloride 105, Carbon Dioxide 26, Anion Gap 9.0, BUN 12, Creatinine 0.90, Estimated Creat Clear 42, Estimated GFR 61, Est GFR ( Amer) 74, Glucose 128 H, Calcium 9.7, Magnesium 1.4 L D, Total Bilirubin 0.1 L, AST 22, ALT 12, Alkaline Phosphatase 56, Total Protein 6.5, Albumin 3.4 L, Globulin 3.1, Albumin/Globulin Ratio 1.1 07/02/24 11:25: POC Glucose 92 I & O for Last 24 hours: Intake & Output 06/29/24 06/30/24 07/01/24 07/02/24 23:59 23:59 23:59 23:59 Intake Total 884.321 / 9110.631 0691 / 1030 1140 / 1290 480 / 480 Output Total 1100 / 1100 0 / 0 0 / 0 0 / 0 Balance -215.679 / 64.321 1030 / 1030 1140 / 1290 480 / 480 Weight 53.637 kg 55.973 kg 53.569 kg 53.362 kg Microbiology Reports for the Last 24 Hours: Microbiology 06/27/24 01:19 Blood Blood Culture - Final NO GROWTH AFTER 5 DAYS 06/27/24 01:19 Blood Blood Culture - Final NO GROWTH AFTER 5 DAYS Constitutional Constitutional: no acute distress *Routine Neck Exam Neck: Present supple; Absent lymphadenopathy *Routine Respiratory Exam Respiratory: Present CTA bilaterally *Routine Cardiovascular Exam Cardiovascular: Present RRR *Routine Abdominal Exam Abdominal: Present soft and normoactive bowel sounds; Absent tenderness *Routine Extremities Exam Extremities: Absent cyanosis, clubbing or edema *Routine Skin Exam Skin: Present warm; Absent rash *Routine Neurological Exam Neurological: Present alert and oriented X3 Assessment and Plan *Assessment and plan (1) Sepsis with acute organ dysfunction and septic shock: Status: Acute Qualifiers: Sepsis type: sepsis due to unspecified organism Severe sepsis acute organ dysfunction type: unspecified Qualified Code(s): A41.9 - Sepsis, unspecified organism; R65.21 - Severe sepsis with septic shock Category: Medical Code(s): A41.9 - Sepsis, unspecified organism; R65.21 - Severe sepsis with septic shock (2) Acute renal failure: Status: Acute Qualifiers: Acute renal failure type: with acute tubular necrosis Qualified Code(s): N17.0 - Acute kidney failure with tubular necrosis Category: Medical Code(s): N17.9 - Acute kidney failure, unspecified (3) Acute cystitis: Status: Acute Qualifiers: Hematuria presence: without hematuria Qualified Code(s): N30.00 - Acute cystitis without hematuria Category: Medical Code(s): N30.00 - Acute cystitis without hematuria (4) Hypoglycemia: Status: Acute Category: Medical Code(s): E16.2 - Hypoglycemia, unspecified (5) Respiratory alkalosis: Status: Acute Category: Medical Code(s): E87.3 - Alkalosis (6) Metabolic acidosis: Status: Acute Category: Medical Code(s): E87.20 - Acidosis, unspecified (7) Breast cancer, left breast: Status: Acute Qualifiers: Breast location: unspecified site of breast Estrogen receptor status: positive Patient sex: female Qualified Code(s): C50.912 - Malignant neoplasm of unspecified site of left female breast; Z17.0 - Estrogen receptor positive status [ER+] Category: Medical Code(s): C50.912 - Malignant neoplasm of unspecified site of left female breast (8) Grief: Status: Acute Category: Medical Code(s): F43.21 - Adjustment disorder with depressed mood (9) Hyperkalemia: Status: Acute Category: Medical Code(s): E87.5 - Hyperkalemia (10) Severe protein-calorie malnutrition: Status: Acute Category: Medical Code(s): E43 - Unspecified severe protein-calorie malnutrition Plan Case discussed with ER physician, request admission for septic shock and acute organ dysfunction including renal failure, hyperkalemia. Medicine agreed to admit after stabilization in the ER. #Acute renal failure with ATN #Hyperkalemia #Hypotension #Hypoglycemia, T2DM #Poor appetite #Severe protein calorie malnutrition ? Initial acute renal failure likely secondary to severe dehydration. Reports poor oral intake over the last week with substantial weight loss over the last year. - Clinically improved with aggressive IV and oral fluid resuscitation. - Creatnine 0.9 today, peak 4.5. Potassium 4.0 today, peaked at 8.5. - Has been weaned off Levophed 06/29/2024. - Sugars have improved, currently stable in 100s. ? Initially presented with poor appetite, however responding well to mirtazapine. Workup so far has been unremarkable including metabolic, TSH, infectious, cortisol, ACTH. CT chest/abdomen/pelvis unremarkable for cancer burden. ? There was initially suspicion of adrenal insufficiency given hypotension, hypoglycemia, poor oral intake for many months. However, morning cortisol, ACTH returned as normal. IV hydrocortisone was given during admission, will not continue. - Initially thought to be septic shock from UTI, but urine culture normal. However, will continue ceftriaxone for a 5 day course given grossly abnormal UA. ? Continue mirtazapine 7.5 mg nightly for appetite, mood. ? Resumed home zolpidem 5 mg, slept very well last night ? Patient will benefit from GI evaluation outpatient for idiopathic poor appetite. ? Pending placement at [facility]. #Physical deconditioning ? PT/OT recommended SNF. Currently waiting on [facility] to get back to us to transition care. #Grief, depression Significant stressors in patient's life Complicating all aspects of care ? Resumed home mirtazapine 7.5 mg nightly.
[2024-07-02 20:00] VITALS: BP 144/78; PULSE 92; RESP 18; TEMP 36.9; O2SAT 96
[2024-07-02] MEDS: MIRTAZAPINE 15 MG TABLET 7.5 MG PO (20:12)
[2024-07-02] MEDS: ZOLPIDEM TARTRATE 5 MG TABLET PO (20:12)
[2024-07-02] MEDS: MELATONIN 5MG TABLET 5 MG PO (20:12)
[2024-07-03 04:00] VITALS: BP 132/66; PULSE 77; RESP 16; TEMP 37.1; O2SAT 96; BMI 21.1
--- NOTE | 2024-07-03 06:50 | PC.NURSE ---
Pt has remained alert to self and time only. She has had bed alarm in place. She has tried to get up multiple times but was easily redirected. She has ambulated to the bathroom with standby assist. Currently asleep with call light within reach.
[2024-07-03] MEDS: LEVOTHYROXINE 50MCG (0.05MG) TAB 50 MCG PO (06:59)
[2024-07-03 07:12] LABS: POC Glucose,Bedside 95 (70-110)
[2024-07-03 07:51] VITALS: BP 114/59; PULSE 80; RESP 18; TEMP 36.8; O2SAT 98
[2024-07-03 08:02] LABS: Alanine Aminotransferase 14 U/L (12-78); Albumin Level 3.6 g/dl (3.5-5.0); Albumin/Globulin Ratio 1.2 (1.1-1.8); Alkaline Phosphatase 57 U/L (38-126); Aspartate Amino Transferase 24 U/L (14-36); Blood Urea Nitrogen 13 mg/dl (7-17); Calcium 9.9 mg/dl (8.4-10.2); Carbon Dioxide 27 mmol/L (22.0-30.0); Chloride 106 mmol/L (98-107); Creatinine Clearance Estimated 44 mL/min (50-200); Estimated Glomerular Filt Rate 70 ml/min (>60); GFR (African American) 85 ML/MIN (>60); Globulin 3.1 g/dL (1.3-3.2); Glucose 91 mg/dl (74-100); Magnesium 1.4 mg/dl (1.6-2.3); Sodium 140 mmol/L (136-145); Total Protein,Serum 6.7 g/dl (6.3-8.2)
[2024-07-03 08:07] LABS: Bilirubin,Total 0.1 mg/dl (0.2-1.3)
[2024-07-03 08:19] LABS: Anion Gap 10.7 mEq/L (5-15); Potassium 3.7 mmoL/L (3.5-5.1)
[2024-07-03] MEDS: ASPIRIN EC 81MG TABLET 81 MG PO (08:19)
[2024-07-03 08:27] LABS: Basophils % 0.7 % (0.1-2.0); Eosinophils # 0.2 K/mm3 (0.0-0.4); Hematocrit 29.1 % (37.0-47.0); Hemoglobin 9.2 g/dL (12.2-16.2); Lymphocytes # 1.8 K/mm3 (0.7-4.5); Lymphocytes % 31.8 % (10-50); Mean Corpuscular HGB Conc 31.6 g/dL (31.8-35.4); Mean Corpuscular Hemoglobin 26.4 pg (27.0-31.2); Mean Corpuscular Volume 83.6 fl (81-99); Mean Platelet Volume 8.9 fl (7.4-10.4); Monocytes # 0.4 K/mm3 (0.1-1.0); Monocytes % 6.5 % (1.7-9.3); Neutrophils # 3.3 K/mm3 (1.8-7.8); Neutrophils % 56.7 % (37.0-80.0); Platelet Count 394 K/mm3 (142-424); Red Blood Count 3.48 M/mm3 (4.20-5.40); Red Cell Distribution Width 14.1 % (11.5-17.5); White Blood Count 5.7 K/mm3 (4.8-10.8)
--- NOTE | 2024-07-03 11:43 | EXP.DC.SUM ---
General Admission date:: 06/27/24 HPI HPI HPI: This is a 74-year-old female with past medical history of breast cancer on oral chemo, recent significant weight loss, who presents emergency department today for generalized weakness. She presents to the ER with her daughter today who provides collateral and states that she has been generally weak for several months. She reports loss of appetite with substantial weight loss. Used to be about 300 pounds now down to about 122 with 20 pounds being lost in the last month. 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 Other than generalized weakness and ongoing tiredness, has felt at her baseline. Denies any chest pain, shortness of breath, cough, chest congestion. Denies any diarrhea or vomiting. Denies any dysuria or CVA tenderness. She does admit to extreme stressors over the last year. Has been the primary caregiver of her who does suffer from dementia who has had increasing behavioral issues recently. He has recently been admitted to the [facility]. She also has had to sell her home and moved to an apartment as well as being from her to be able to afford increasing financial pressures. She had labs drawn at her PCPs office and was noted to have acute renal failure with a creatinine of 4.4 and a potassium of 8.5. She was called immediately to present to the emergency department for further evaluation Initial repeat labs on ED workup notable as follows K 7.1 Anion gap 19 Creatinine 4.5 Glucose 42 pH 7.43 Bicarb 15 Troponin negative Lipase 293 EKG with Q waves and ST changes Urinalysis with bacteria, sediment, white blood cells CT chest abdomen pelvis imaging notable for: Stable benign 4 mm right lower lobe nodule, status post left mastectomy, bilateral perinephric edema, gallbladder sludge without gallstones Given above abnormalities, hospitalist admission was initially deferred given no nephrology available. Shared decision making with the family per ED provider and given patient's daughter is an employee of the hospital, requested not being transferred to another facility. It was determined that treatment modalities would be initiated to attempt to improve overall picture to see if patient would be a candidate for admission here. Family requested treatment in the ER with repeat labs for this purpose. Patient was medicated in the ER with albuterol, D10 infusion, IV insulin, Rocephin, Kayexalate, and 2 L crystalloid infusion Repeat labs obtained with significant improvement in labs K of 4.7 Creatinine of 3.5 glucose of 153 Calcium of 9.6 Bicarbonate of [address] changes. Patient did become hypotensive and tachycardic with systolic blood pressure in the 90s and tachycardic in the 120s. With additional 2 L fluid infusion, she was fluid responsive but ultimately requiring Levophed for MAP support. Chaudhari catheter in place draining 75 to 100 mL/h On reassessment, patient feels substantially better. States that she feels less weak and more alert. States this is the best that she has felt in several days. Given improvement in labs, and with request of family for no transfer to another facility, will admit here for further evaluation Hospital Course Hospital Course Hospital Course: Case discussed with ER physician, request admission for septic shock and acute organ dysfunction including renal failure, hyperkalemia. Medicine agreed to admit after stabilization in the ER. #Acute renal failure with ATN #Hyperkalemia # Hypovolemic shock #Hypoglycemia, T2DM #Poor appetite #Severe protein calorie malnutrition #Physical deconditioning ? Initial acute renal failure likely secondary to severe dehydration. Reports poor oral intake for the past weeks with substantial weight loss over the last year. - Clinically improved with aggressive IV and oral fluid resuscitation. Had been weaned off Levophed 06/29/2024 for hypovolemic shock. - Sugars have improved, currently stable in 80-150. A1c normal at 4.9%. ? Initially presented with poor appetite, however responding well to mirtazapine. Workup so far has been unremarkable including metabolic, TSH, infectious, cortisol, ACTH. CT chest/abdomen/pelvis unremarkable for cancer burden. ? There was initially suspicion of adrenal insufficiency given hypotension, hypoglycemia, poor oral intake for many months. However, morning cortisol, ACTH returned as normal. IV hydrocortisone was given during admission, will not continue. - Initially thought to be septic shock from UTI, but urine culture normal. However, given ceftriaxone for 5 days for abnormal UA. ? Started mirtazapine 7.5 mg nightly for appetite, mood with improvement in both. ? Resumed home zolpidem 5 mg, slept very well last night. Decreased home zolpidem dose from 10 mg, continue further weaning due to long-term side effects of zolpidem. ? [facility] graciously accepted patient for rehab. #Hypothyroidism ? Resumed home levothyroxine 50 mcg. #Grief, depression Significant stressors in patient's life Complicating all aspects of care ? Started mirtazapine 7.5 mg nightly. #History of breast cancer s/p double mastectomy ? Continue home anastrozole 1 mg daily. Exam Data for Last 24 hours Vital signs and Labs for Last 24 Hours: Temp Pulse Resp BP Pulse Ox O2 Del Method O2 Flow Rate 98.3 F 80 18 114/59 L 98 Room Air 2 07/03/24 07:51 07/03/24 07:51 07/03/24 07:51 07/03/24 07:51 07/03/24 07:51 07/03/24 09:00 06/27/24 03:00 Laboratory Results - last 24 hr 06/30/24 05:46: Total Insulin 4.6 07/03/24 07:02: POC Glucose 95 07/03/24 07:08: WBC 5.7, RBC 3.48 L, Hgb 9.2 L, Hct 29.1 L, MCV 83.6, MCH 26.4 L, MCHC 31.6 L, RDW 14.1, Plt Count 394, MPV 8.9, Neut % (Auto) 56.7, Lymph % (Auto) 31.8, [place] % (Auto) 6.5, Eos % (Auto) 4.0, Baso % (Auto) 0.7, Neut # (Auto) 3.3, Lymph # (Auto) 1.8, [place] # (Auto) 0.4, Eos # (Auto) 0.2, Baso # (Auto) 0.0, Sodium 140, Potassium 3.7, Chloride 106, Carbon Dioxide 27, Anion Gap 10.7, BUN 13, Creatinine 0.80, Estimated Creat Clear 44, Estimated GFR 70, Est GFR ( Amer) 85, Glucose 91 D, Calcium 9.9, Magnesium 1.4 L, Total Bilirubin 0.1 L, AST 24, ALT 14, Alkaline Phosphatase 57, Total Protein 6.7, Albumin 3.6, Globulin 3.1, Albumin/Globulin Ratio 1.2 I & O for Last 24 hours: Intake & Output 06/30/24 07/01/24 07/02/24 07/03/24 23:59 23:59 23:59 23:59 Intake Total 1030 / 1030 1140 / 1290 598 / 798 300 / 300 Output Total 0 / 0 0 / 0 0 / 150 150 / 150 Balance 1030 / 1030 1140 / 1290 598 / 648 150 / 150 Weight 55.973 kg 53.569 kg 53.362 kg 55.52 kg Constitutional Constitutional: no acute distress *Routine Neck Exam Neck: Present supple; Absent lymphadenopathy *Routine Respiratory Exam Respiratory: Present CTA bilaterally *Routine Cardiovascular Exam Cardiovascular: Present RRR *Routine Abdominal Exam Abdominal: Present soft and normoactive bowel sounds; Absent tenderness *Routine Extremities Exam Extremities: Absent cyanosis, clubbing or edema *Routine Skin Exam Skin: Present warm; Absent rash *Routine Neurological Exam Neurological: Present alert and oriented X3 Results Data Completed and Pending Labs on day of discharge: Labs from last 24 hours 07/03/24 07/03/24 06/30/24 07:08 07:02 05:46 WBC 5.7 RBC 3.48 L Hgb 9.2 L Hct 29.1 L MCV 83.6 MCH 26.4 L MCHC 31.6 L RDW 14.1 Plt Count 394 MPV 8.9 Neut % (Auto) 56.7 Lymph % (Auto) 31.8 [place] % (Auto) 6.5 Eos % (Auto) 4.0 Baso % (Auto) 0.7 Neut # (Auto) 3.3 Lymph # (Auto) 1.8 [place] # (Auto) 0.4 Eos # (Auto) 0.2 Baso # (Auto) 0.0 Sodium 140 Potassium 3.7 Chloride 106 Carbon Dioxide 27 Anion Gap 10.7 BUN 13 Creatinine 0.80 Estimated Creat Clear 44 Estimated GFR 70 Est GFR ( Amer) 85 Glucose 91 D POC Glucose 95 Total Insulin 4.6 Calcium 9.9 Magnesium 1.4 L Total Bilirubin 0.1 L AST 24 ALT 14 Alkaline Phosphatase 57 Total Protein 6.7 Albumin 3.6 Globulin 3.1 Albumin/Globulin Ratio 1.2 DS: Diagnosis Discharge Diagnosis (1) Sepsis with acute organ dysfunction and septic shock: Status: Acute Code(s): A41.9 - Sepsis, unspecified organism; R65.21 - Severe sepsis with septic shock Qualifiers: Sepsis type: sepsis due to unspecified organism Severe sepsis acute organ dysfunction type: unspecified Qualified Code(s): A41.9 - Sepsis, unspecified organism; R65.21 - Severe sepsis with septic shock (2) Acute renal failure: Status: Acute Code(s): N17.9 - Acute kidney failure, unspecified Qualifiers: Acute renal failure type: with acute tubular necrosis Qualified Code(s): N17.0 - Acute kidney failure with tubular necrosis (3) Acute cystitis: Status: Acute Code(s): N30.00 - Acute cystitis without hematuria Qualifiers: Hematuria presence: without hematuria Qualified Code(s): N30.00 - Acute cystitis without hematuria (4) Hypoglycemia: Status: Acute Code(s): E16.2 - Hypoglycemia, unspecified (5) Respiratory alkalosis: Status: Acute Code(s): E87.3 - Alkalosis (6) Metabolic acidosis: Status: Acute Code(s): E87.20 - Acidosis, unspecified (7) Breast cancer, left breast: Status: Acute Code(s): C50.912 - Malignant neoplasm of unspecified site of left female breast Qualifiers: Breast location: unspecified site of breast Estrogen receptor status: positive Patient sex: female Qualified Code(s): C50.912 - Malignant neoplasm of unspecified site of left female breast; Z17.0 - Estrogen receptor positive status [ER+] (8) Grief: Status: Acute Code(s): F43.21 - Adjustment disorder with depressed mood (9) Hyperkalemia: Status: Acute Code(s): E87.5 - Hyperkalemia (10) Severe protein-calorie malnutrition: Status: Acute Code(s): E43 - Unspecified severe protein-calorie malnutrition Meds Home Medications and Allergies Home Medications ?Medication ?Instructions ?Recorded ?Confirmed ?Type anastrozole 1 mg tablet 1 mg PO DAILY 11/03/18 06/27/24 History aspirin 81 mg tablet,delayed 81 mg PO DAILY 11/03/18 06/27/24 History release (Adult Low Dose Aspirin) levothyroxine 50 mcg tablet 50 mcg PO DAILY 06/28/24 06/27/24 History mirtazapine 7.5 mg tablet 7.5 mg PO HS 06/28/24 06/28/24 History zolpidem 10 mg tablet 5 mg (1/2 x 10 mg) PO DAILY 30 07/03/24 06/27/24 Rx days #0 tabs New Prescriptions to Start Prescriptions: Allergies Allergy/AdvReac Type Severity Reaction Status Date / Time No Known Allergies Allergy Verified 04/19/24 10:24 Discharge Plan Disposition Patient Disposition: Xfer SNF Condition: Fair Discharge Order Discharge Orders: Discharge Order (Routine); Ordered 07/03/24 Ordered By: Armen Morales Follow up Plan Follow up with: Brent Schmidt MD [Primary Care Provider] - 07/07/24 Prescriptions/Medication Reconciliation: Continued anastrozole 1 mg tablet 1 mg PO DAILY aspirin [Adult Low Dose Aspirin] 81 mg tablet,delayed release (DR/EC) 81 mg PO DAILY levothyroxine 50 mcg tablet 50 mcg PO DAILY mirtazapine 7.5 mg Tablet 7.5 mg PO HS Changed zolpidem 10 mg tablet 5 mg PO DAILY 30 Days Qty: 0 0RF Patient Comments: TAKE 1 TABLET BY MOUTH AT BEDTIME NIGHTLY FOR SLEEP Discontinued (DME) lancets-blood glucose strips 30 gauge combo pack See Rx Instructions .Route Qty: 100 2RF Rx Instructions: Pt is to test BID prn (DME) blood-glucose meter Misc See Rx Instructions .Route Qty: 1 0RF Rx Instructions: Pt is to test once a day (DME) lancets [Accu-Chek Softclix Lancets] Misc See Rx Instructions .Route Qty: 100 6RF Rx Instructions: Pt is to test once a day (DME) Accu-Chek Guide test strips Strip See Rx Instructions .Route Qty: 100 6RF Rx Instructions: Pt is to test once a day (DME) Blood Glucose Test Strip See Rx Instructions .ROUTE .MEDSUPPLY Qty: 100 3RF Rx Instructions: BID prn E11.9 (DME) blood-glucose meter [Blood Glucose Monitoring] Kit See Rx Instructions .ROUTE .MEDSUPPLY Qty: 1 0RF Rx Instructions: Pt is to test BID PRN E11.9 amitriptyline 25 mg tablet 25 mg PO DAILY metformin 1,000 mg tablet 1,000 mg PO BID Patient Comments: TAKE 1 TABLET BY MOUTH TWICE DAILY FOR DIABETES triamterene-hydrochlorothiazid 37.5-25 mg tablet 1 tab PO DAILY Patient Comments: TAKE 1 TABLET BY MOUTH ONCE DAILY famotidine [Pepcid] 20 mg tablet 20 mg PO BID lisinopril 20 mg tablet 20 mg PO DAILY Patient Comments: TAKE 1 TABLET BY MOUTH ONCE DAILY FOR HIGH BLOOD PRESSURE allopurinol 100 mg tablet 100 mg PO DAILY Patient Comments: TAKE 1 TABLET BY MOUTH ONCE DAILY FOR GOUT gabapentin 800 mg tablet 800 mg PO QID Patient Comments: TAKE 1 TABLET BY MOUTH 4 TIMES DAILY FOR NEUROPATHY diclofenac sodium 75 mg tablet,delayed release (DR/EC) 75 mg PO BID Patient Comments: TAKE 1 TABLET BY MOUTH TWICE DAILY FOR PAIN Problem Reconciliation Problems Reviewed?: Yes Patient Discharge Instructions Patient Instructions: High-Calorie, High-Protein Diet, DI for Hypoglycemia, NCM High-Calorie High-Protein Diet, WM High Calorie High Protein Diet Recipes Print Language: Omani Providers Primary Care Provider: Brent Schmidt Admit Provider: Benson Reed Attending Provider: Benson Reed
[2024-07-03] MEDS: MAGNESIUM SULFATE IN WATER 2 GM/50 ML PIGGYBACK IV (13:06)
== END 2024-07-03 14:04 | DRG 682 ==
LOC: ER 06-27 02:09 → ICU 06-27 02:42 → 2ND 06-29 18:15
PROVIDERS: Emergency Medicine; Nurse Practitioner Acute Care; Physician Assistant; Student in an Organized Health Care Education/Training Program; Admitting Provider Internal Medicine Adolescent Medicine; Emergency Provider Emergency Medicine; PCP Family Medicine; Visit Provider Internal Medicine Adolescent Medicine
DX: N17.0 Acute kidney failure with tubular necrosis (principal); E43 Unspecified severe protein-calorie malnutrition; R57.1 Hypovolemic shock; R63.4 Abnormal weight loss; E11.649 Type 2 diabetes mellitus with hypoglycemia without coma; E03.9 Hypothyroidism, unspecified; E87.5 Hyperkalemia; F50.89 Other specified eating disorder; F32.A Depression, unspecified; C50.912 Malignant neoplasm of unspecified site of left female breast; I95.9 Hypotension, unspecified; F43.21 Adjustment disorder with depressed mood; Z79.82 Long term (current) use of aspirin; Z68.21 Body mass index [BMI] 21.0-21.9, adult; Z63.5 Disruption of family by separation and divorce; Z59.89 Other problems related to housing and economic circumstances; Z79.811 Long term (current) use of aromatase inhibitors; Z17.0 Estrogen receptor positive status [ER+]
CPT/HCPCS: 36415; 51702; 71045; 71250; 74176; 80048; 80053; 80076; 81001; 82024; 82306; 82533; 82803; 82962; 83036; 83525; 83605; 83690; 83735; 84100; 84145; 84436; 84439; 84443; 84484; 85014; 85018; 85025; 86140; 86803; 87040; 87081; 87086; 87389; 87641; 93005; 97110; 97116; 97162; 97165; 97530; 99291; 99292; J0696; J1630; J3411; J3475; J7030; J7042; J7060; J7120; J7613

== ENCOUNTER 2024-08-30 14:08 | Outpatient (CLI) | payer MEDICARE, SELFPAY ==
[2024-08-30 15:00] LABS: Basophils % 0.8 % (0.1-2.0); Eosinophils # 0.1 K/mm3 (0.0-0.4); Eosinophils % 1.9 % (0.1-12.0); Hematocrit 28.8 % (37.0-47.0); Lymphocytes # 1.5 K/mm3 (0.7-4.5); Lymphocytes % 29.4 % (10-50); Mean Corpuscular HGB Conc 31.3 g/dL (31.8-35.4); Mean Corpuscular Hemoglobin 25.9 pg (27.0-31.2); Mean Platelet Volume 8.4 fl (7.4-10.4); Monocytes # 0.4 K/mm3 (0.1-1.0); Monocytes % 8.2 % (1.7-9.3); Neutrophils # 3.1 K/mm3 (1.8-7.8); Neutrophils % 59.5 % (37.0-80.0); Platelet Count 306 K/mm3 (142-424); Red Blood Count 3.47 M/mm3 (4.20-5.40); White Blood Count 5.1 K/mm3 (4.8-10.8)
[2024-08-30 15:25] LABS: Albumin Level 4.3 g/dl (3.5-5.0); Chloride 100 mmol/L (98-107); Potassium 4.3 mmoL/L (3.5-5.1); Sodium 135 mmol/L (136-145)
[2024-08-30 15:28] LABS: Alanine Aminotransferase 16 U/L (12-78); Albumin/Globulin Ratio 1.7 (1.1-1.8); Alkaline Phosphatase 59 U/L (38-126); Anion Gap 11.3 mEq/L (5-15); Aspartate Amino Transferase 20 U/L (14-36); Bilirubin,Total 0.2 mg/dl (0.2-1.3); Blood Urea Nitrogen 26 mg/dl (7-17); Calcium 9.8 mg/dl (8.4-10.2); Carbon Dioxide 28 mmol/L (22.0-30.0); Estimated Glomerular Filt Rate 98 ml/min (>60); GFR (African American) 119 ML/MIN (>60); Globulin 2.5 g/dL (1.3-3.2); Glucose 168 mg/dl (74-100); Total Protein,Serum 6.8 g/dl (6.3-8.2)
== END 2024-08-30 23:59 | disposition home or self-care (01) ==
LOC: LAB 14:10
PROVIDERS: PCP Internal Medicine Adolescent Medicine; Visit Provider Internal Medicine Adolescent Medicine
DX: N17.9 Acute kidney failure, unspecified (principal); D64.9 Anemia, unspecified
CPT/HCPCS: 36415; 80053; 85025

== ENCOUNTER 2024-09-27 14:04 | Outpatient (CLI) | payer MEDICARE, SELFPAY ==
[2024-09-27 14:55] LABS: Basophils # 0.1 K/mm3 (0-0.2); Basophils % 0.8 % (0.1-2.0); Eosinophils # 0.1 K/mm3 (0.0-0.4); Eosinophils % 1.4 % (0.1-12.0); Hemoglobin 9.9 g/dL (12.2-16.2); Lymphocytes % 31.6 % (10-50); Mean Corpuscular HGB Conc 31.9 g/dL (31.8-35.4); Mean Corpuscular Volume 78.3 fl (81-99); Mean Platelet Volume 8.7 fl (7.4-10.4); Monocytes # 0.4 K/mm3 (0.1-1.0); Monocytes % 6.2 % (1.7-9.3); Neutrophils # 3.9 K/mm3 (1.8-7.8); Neutrophils % 59.8 % (37.0-80.0); Nucleated Red Blood Cells # 0 10^3/uL; Nucleated Red Blood Cells % 0 %; Platelet Count 320 K/mm3 (142-424); Red Blood Count 3.96 M/mm3 (4.20-5.40); Red Cell Distribution Width 12.6 % (11.5-17.5); Red Cell Distribution Width-SD 36.2 fL; White Blood Count 6.4 K/mm3 (4.8-10.8)
[2024-09-27 17:00] LABS: Chloride 102 mmol/L (98-107)
[2024-09-27 17:01] LABS: Albumin Level 4.2 g/dl (3.5-5.0); Potassium 4.1 mmoL/L (3.5-5.1); Sodium 138 mmol/L (136-145)
[2024-09-27 17:03] LABS: Alanine Aminotransferase 12 U/L (12-78); Anion Gap 13.1 mEq/L (5-15); Aspartate Amino Transferase 21 U/L (14-36); Bilirubin,Total 0.2 mg/dl (0.2-1.3); Blood Urea Nitrogen 23 mg/dl (7-17); Carbon Dioxide 27 mmol/L (22.0-30.0); Estimated Glomerular Filt Rate 82 ml/min (>60); GFR (African American) 99 ML/MIN (>60)
[2024-09-27 17:04] LABS: Albumin/Globulin Ratio 1.2 (1.1-1.8); Alkaline Phosphatase 63 U/L (38-126); Calcium 9.9 mg/dl (8.4-10.2); Globulin 3.5 g/dL (1.3-3.2); Glucose 89 mg/dl (74-100); Total Protein,Serum 7.7 g/dl (6.3-8.2)
[2024-09-27 17:11] LABS: Free Thyroxine Index 2.6 ug/dL (5.93-13.13); T4 (Thyroxine) 7.7 ug/dl (5.53-11.0); Triiodothryronine (T3) Uptake 34 % (23.5-40.5)
[2024-09-27 17:25] LABS: Thyroid Stimulating Hormone 1.55 uIU/mL (0.465-4.68)
[2024-09-27 18:19] LABS: Hemoglobin A1C 5.8 % (4.0-6.0)
== END 2024-09-27 23:59 | disposition home or self-care (01) ==
LOC: LAB 14:06
PROVIDERS: PCP Internal Medicine Adolescent Medicine; Visit Provider Internal Medicine Adolescent Medicine
DX: E03.9 Hypothyroidism, unspecified (principal); E11.9 Type 2 diabetes mellitus without complications
CPT/HCPCS: 36415; 80053; 83036; 84436; 84443; 84479; 85025

== ENCOUNTER 2024-10-25 13:04 | Outpatient (CLI) | payer MEDICARE, SELFPAY ==
[2024-10-25 13:57] LABS: Basophils # 0.1 K/mm3 (0-0.2); Basophils % 0.9 % (0.1-2.0); Eosinophils # 0.1 Kmm3 (0.0-0.4); Eosinophils % 1.2 % (0.1-12.0); Hematocrit 31.2 % (37.0-47.0); Hemoglobin 9.7 g/dL (12.2-16.2); Immature Granulocytes # 0.01 10^3uL; Immature Granulocytes % 0.2 %; Lymphocytes # 1.9 K/mm3 (0.7-4.5); Lymphocytes % 32.2 % (10-50); Mean Corpuscular HGB Conc 31.1 g/dL (31.8-35.4); Mean Corpuscular Hemoglobin 23.9 pg (27.0-31.2); Mean Corpuscular Volume 76.8 fl (81-99); Mean Platelet Volume 8.6 fl (7.4-10.4); Monocytes # 0.4 K/mm3 (0.1-1.0); Monocytes % 6.2 % (1.7-9.3); Neutrophils # 3.5 K/mm3 (1.8-7.8); Neutrophils % 59.3 % (37.0-80.0); Nucleated Red Blood Cells # 0 10^3/uL; Nucleated Red Blood Cells % 0 %; Platelet Count 287 K/mm3 (142-424); Red Blood Count 4.06 M/mm3 (4.20-5.40); Red Cell Distribution Width 13.3 % (11.5-17.5); Red Cell Distribution Width-SD 37.4 fL; White Blood Count 5.8 K/mm3 (4.8-10.8)
[2024-10-25 14:26] LABS: Alanine Aminotransferase 15 U/L (12-78); Albumin Level 4.6 g/dl (3.5-5.0); Albumin/Globulin Ratio 1.6 (1.1-1.8); Alkaline Phosphatase 58 U/L (38-126); Anion Gap 7.2 mEq/L (5-15); Aspartate Amino Transferase 25 U/L (14-36); Bilirubin,Total 0.2 mg/dl (0.2-1.3); Blood Urea Nitrogen 25 mg/dl (7-17); Calcium 9.9 mg/dl (8.4-10.2); Carbon Dioxide 30 mmol/L (22.0-30.0); Chloride 104 mmol/L (98-107); Estimated Glomerular Filt Rate 82 ml/min (>60); GFR (African American) 99 ML/MIN (>60); Globulin 2.8 g/dL (1.3-3.2); Glucose 120 mg/dl (74-100); Potassium 4.2 mmoL/L (3.5-5.1); Sodium 137 mmol/L (136-145); Total Protein,Serum 7.4 g/dl (6.3-8.2)
[2024-10-25 14:43] LABS: T4 (Thyroxine) 6.1 ug/dl (5.53-11.0); Triiodothryronine (T3) Uptake 32 % (23.5-40.5)
[2024-10-25 14:56] LABS: Thyroid Stimulating Hormone 2.48 uIU/mL (0.465-4.68)
== END 2024-10-25 23:59 | disposition home or self-care (01) ==
LOC: LAB 13:06
PROVIDERS: PCP Internal Medicine Adolescent Medicine; Visit Provider Internal Medicine Adolescent Medicine
DX: E43 Unspecified severe protein-calorie malnutrition (principal)
CPT/HCPCS: 36415; 80053; 84436; 84443; 84479; 85025

== ENCOUNTER 2025-01-03 10:31 | Outpatient (CLI) | payer MEDICARE, SELFPAY ==
--- OUTSIDE RECORDS SUMMARY | 2025-01-03 10:36 | XMS_ITS | Clinical Summary ---
[facility] Address [address] [place] [address] Care Team Providers Care Bagger And Stock Handler Helper Name Role Phone Provider, No Known Primary Care Provider Unavail able Immunizations Immunization Administration Dates Next Due COVID-19 (PFIZER) Purple Cap Monovalent 08/22/19 21,07/31/2020 Social History Tobacco Use Types Packs/Day Years Used Date Smoking Tobacco: Never Assessed Abuse Screen Answer Date Recorded Unsafe at Home or Work/School Not on file Feels Threatened by Someone? Not on file 02/2023 Does Anyone Keep You from Co ntacting Others or Doint Things Outside the Home? Not on file 03/22/2023 Physical Sign of Abuse Present Not on file 1 Housing Stability Answer Date Recorded Current Living Arrangements Not on file 02/2023 Potentially Unsafe Housing Conditions Not on valarie e 03/22/2023 Family and Community Support Answer Alcides e Recorded Help with Day-to-Day Activities Not on file 03/22/2023 Lonely or Isolated Not on file 03/22/2023 Employment Answer Date Recorded Do you want help finding or keeping work or a kourtney b? Not on file 03/22/2023 Disabilities Answer Date Recorded Concentrating, Remembering, or Making Decisions Difficulty Not on file 03/22/2023 Doing Errands Independently Difficulty Not on fi le 03/22/2023 Education Answer Date Recorded Help with school or training? Not on file Preferred Language Not on file 03/22/2023 Comments Unknown Sex and Gender Information Value Date Recorded Sex Assigned at Not on file Legal Sex Female 11:36 AM EDT Gender Identity Not on file Sexual Orientation Not on file Plan of Treatment Health Maintenance Due Date Last Done Comments ANNUAL PHYSICAL 1950 DXA SCAN 1950 HEPATITIS C SCREENING 1950 TDAP/TD VACCINES (1 - Tdap) 1970 MAMMOGRAM 1991 COLOGUARD 1996 COLON CANCER SCREENING 5 YEA R SIGMOIDOSCOPY 1996 COLONOSCOPY 1996 [address]AL CANCER SCREENING 1996 CT COLONOGRAPHY 1996 FECAL OCCULT BLOOD TEST 1996 FIT Testing (1 year) 1996 Pneumococcal Vaccine 50+ (1 of 1 - PCV) 2001 ZOSTER VACCINE (2 of 3) 11/13/2015 09/18/2015 COVID-19 Vaccine (3 - 2023-2 5 season) 2024 08/21/2020, 07/31/2020 INFLUENZA VACCINE 03/14/2025 06/15/2019, , 03/02/2017, Additional history exists Insurance MEDICARE A & B Member Subscriber Plan / Payer (Ef fective 2016-Present) Name:Maya Hope Member ID:[id number] Relation to Subscriber:Self Name:Maya Hope Subscriber ID:[id number] Payer ID:[id number] Group ID:Not on file Type:Not on file Address: [facility] [id number] [employer] [facility] Care Teams Bagger And Stock Handler Helper Relationship Specialty Start Date End Date Provider, No Known [facility] [place] [address] PCP - General 07/31/20
[2025-01-03 11:25] LABS: Chloride 100 mmol/L (98-107)
[2025-01-03 11:26] LABS: Albumin Level 4.6 g/dl (3.5-5.0); Potassium 4.0 mmoL/L (3.5-5.1); Sodium 136 mmol/L (136-145)
[2025-01-03 11:28] LABS: Blood Urea Nitrogen 19 mg/dl (7-17); Creatinine,Serum 0.60 mg/dl (0.52-1.04); Estimated Glomerular Filt Rate 98 ml/min (>60); GFR (African American) 119 ML/MIN (>60)
[2025-01-03 11:29] LABS: Alanine Aminotransferase 18 U/L (12-78); Albumin/Globulin Ratio 1.4 (1.1-1.8); Alkaline Phosphatase 58 U/L (38-126); Anion Gap 9.0 mEq/L (5-15); Aspartate Amino Transferase 27 U/L (14-36); Bilirubin,Total 0.8 mg/dl (0.2-1.3); Calcium 10.4 mg/dl (8.4-10.2); Carbon Dioxide 31 mmol/L (22.0-30.0); Globulin 3.3 g/dL (1.3-3.2); Glucose 110 mg/dl (74-100); Total Protein,Serum 7.9 g/dl (6.3-8.2)
[2025-01-03 11:46] LABS: Free Thyroxine Index 2.2 ug/dL (5.93-13.13); T4 (Thyroxine) 6.6 ug/dl (5.53-11.0); Triiodothryronine (T3) Uptake 34 % (23.5-40.5)
[2025-01-03 12:00] LABS: Thyroid Stimulating Hormone 2.06 uIU/mL (0.465-4.68)
[2025-01-03 12:10] LABS: Hemoglobin A1C 6.0 % (4.0-6.0)
== END 2025-01-03 23:59 | disposition home or self-care (01) ==
LOC: LAB 10:33
PROVIDERS: PCP Internal Medicine Adolescent Medicine; Visit Provider Internal Medicine Adolescent Medicine
DX: E11.9 Type 2 diabetes mellitus without complications (principal); E03.9 Hypothyroidism, unspecified
CPT/HCPCS: 36415; 80053; 83036; 84436; 84443; 84479

== ENCOUNTER 2025-03-20 08:07 | Outpatient (CLI) | payer MEDICARE, SELFPAY ==
--- NOTE | 2025-03-20 08:30 | MM_ITS ---
PROCEDURE INFORMATION: Exam: MG Right Screening 3D Mammography Exam date and time: 03/20/2025 8:29 AM Age: 74 years old Clinical indication: Screening. Personal history of left breast cancer, status post mastectomy in 2019. TECHNIQUE: Imaging protocol: Right Screening tomosynthesis and 2D mammography including computer-aided detection (CAD) when performed. COMPARISON: 1. MG MM DIG SC MAMM UNILAT RT CAD 03/15/2024 7:24 AM 2. MG MM DIG MAMM DX UNILAT RT CAD 03/06/2021 2:35 PM 3. MG MM DIG MAMM DX UNILAT RT CAD 05/07/2020 1:07 PM 4. MG MM DIG SCREENING MAMM BI W/CAD 04/18/2020 8:40 AM FINDINGS: MAMMOGRAPHY: Breast composition: There are scattered areas of fibroglandular density. Mass: None. Architectural distortion: None. Calcifications: No suspicious calcifications. Asymmetric density: None. Skin thickening: None. Axillary adenopathy: None. IMPRESSION: No mammographic evidence of malignancy. Annual screening is recommended unless otherwise clinically indicated. ASSESSMENT: BI-RADS Category 1: Negative.
== END 2025-03-20 23:59 | disposition home or self-care (01) ==
LOC: RAD 08:08
PROVIDERS: PCP Internal Medicine Adolescent Medicine; Visit Provider Internal Medicine Medical Oncology
DX: Z12.31 Encounter for screening mammogram for malignant neoplasm of breast (principal); R92.321 Mammographic fibroglandular density, right breast; Z85.3 Personal history of malignant neoplasm of breast; Z90.12 Acquired absence of left breast and nipple
CPT/HCPCS: 77063; 77067

== ENCOUNTER 2025-04-04 10:44 | Outpatient (CLI) | payer MEDICARE, SELFPAY ==
--- OUTSIDE RECORDS SUMMARY | 2025-04-04 11:05 | XMS_ITS | Clinical Summary ---
Author Organization [facility] Address [address] [place] [address] Care Team Providers Care Feeder Catcher Tobacco Name Role Phone Provider, No Known Primary [...] ZOSTER VACCINE (2 of 3) 11/13/2015 09/18/2015 INFLUENZA VACCINE 01/12/2025 06/15/2019, , 03/02/2017, Additional history exists COVID-19 Vaccine (2024-2 6 season) 2025 08/21/2020, 07/31/2020 Insurance MEDICARE A & B Member Subscriber Plan / Payer (Ef fective 2016-Present) Name:Maya Hope Member ID:[id number] Relation to Subscriber:Self Name:Maya Hope Subscriber ID:[id number] Payer ID:[id number] Group ID:Not on file Type:Not on file Address: [facility] [id number] [employer] [facility] Care Teams Feeder Catcher Tobacco Relationship Specialty Start Date End Date Provider, No Known [facility] [place] [address] PCP - General 07/31/20
[2025-04-04 11:08] LABS: Hematocrit 35.9 % (37.0-47.0); Hemoglobin 11.4 g/dL (12.2-16.2); Immature Granulocytes % 0.3 %; Mean Corpuscular HGB Conc 31.8 g/dL (31.8-35.4); Mean Corpuscular Hemoglobin 25.9 pg (27.0-31.2); Mean Corpuscular Volume 81.6 fl (81-99); Nucleated Red Blood Cells % 0 %; Platelet Count 236 K/mm3 (142-424); Red Blood Count 4.40 M/mm3 (4.20-5.40); Red Cell Distribution Width-SD 46.9 fL; White Blood Count 5.8 K/mm3 (4.8-10.8)
[2025-04-04 11:24] LABS: Albumin Level 4.1 g/dl (3.5-5.0); Chloride 99 mmol/L (98-107)
[2025-04-04 11:25] LABS: Potassium 4.0 mmoL/L (3.5-5.1); Sodium 138 mmol/L (136-145)
[2025-04-04 11:27] LABS: Blood Urea Nitrogen 11 mg/dl (7-17); Creatinine,Serum 0.70 mg/dl (0.52-1.04); Estimated Glomerular Filt Rate 82 ml/min (>60); GFR (African American) 99 ML/MIN (>60)
[2025-04-04 11:28] LABS: Alanine Aminotransferase 13 U/L (12-78); Albumin/Globulin Ratio 1.2 (1.1-1.8); Alkaline Phosphatase 70 U/L (38-126); Anion Gap 11.0 mEq/L (5-15); Aspartate Amino Transferase 22 U/L (14-36); Bilirubin,Total 0.3 mg/dl (0.2-1.3); Calcium 9.6 mg/dl (8.4-10.2); Carbon Dioxide 32 mmol/L (22.0-30.0); Globulin 3.3 g/dL (1.3-3.2); Glucose 102 mg/dl (74-100); Total Protein,Serum 7.4 g/dl (6.3-8.2)
[2025-04-04 12:00] LABS: Thyroid Stimulating Hormone 1.43 uIU/mL (0.465-4.68)
== END 2025-04-04 23:59 | disposition home or self-care (01) ==
LOC: LAB 10:47
PROVIDERS: PCP Internal Medicine Adolescent Medicine; Visit Provider Internal Medicine Adolescent Medicine
DX: E03.9 Hypothyroidism, unspecified (principal); E11.9 Type 2 diabetes mellitus without complications; D64.9 Anemia, unspecified
CPT/HCPCS: 36415; 80053; 84443; 85025

== ENCOUNTER 2025-06-13 10:23 | Outpatient (CLI) | payer MEDICARE, SELFPAY ==
--- OUTSIDE RECORDS SUMMARY | 2025-06-13 10:29 | XMS_ITS | Clinical Summary ---
[facility] [address] [place] [address] Care Team Providers Care Fixed Route Operator Name Role Phone Provider, No Known Primary [...] Payer (Ef fective 2016-Present) Name:Maya Hope Member ID:[id number] Relation to Subscriber:Self Name:Maya Hope Subscriber ID:[id number] Payer ID:[id number] Group ID:Not on file Type:Not on file Address: [facility] [id number] [employer] [facility] Care Teams Fixed Route Operator Relationship Specialty Start Date End Date Provider, No Known [facility] [place] [address] PCP - General 07/31/20
[2025-06-13 11:13] LABS: Chloride 102 mmol/L (98-107); Sodium 138 mmol/L (136-145)
[2025-06-13 11:14] LABS: Potassium 4.0 mmoL/L (3.5-5.1)
[2025-06-13 11:17] LABS: Anion Gap 10.0 mEq/L (5-15); Blood Urea Nitrogen 15 mg/dl (7-17); Calcium 10.2 mg/dl (8.4-10.2); Carbon Dioxide 30 mmol/L (22.0-30.0); Creatinine,Serum 0.80 mg/dl (0.52-1.04); Estimated Glomerular Filt Rate 70 ml/min (>60); GFR (African American) 85 ML/MIN (>60); Glucose 134 mg/dl (74-100)
== END 2025-06-13 23:59 | disposition home or self-care (01) ==
LOC: LAB 10:24
PROVIDERS: PCP Internal Medicine Adolescent Medicine; Visit Provider Internal Medicine Adolescent Medicine
DX: E87.1 Hypo-osmolality and hyponatremia (principal)
CPT/HCPCS: 36415; 80048